=== PATIENT | male | born 1930 | race Caucasian/White ===

== ENCOUNTER 2016-12-25 15:33 | Inpatient (IN) | payer OTHER ==
[~2016-12-25] VITALS: Ht 182.9 cm; Wt 77.4 kg
[2016-12-25 04:00] VITALS: BP 149/73; PULSE 77; TEMP 36.5; O2SAT 97
[~2016-12-25 15:33] MED LIST: ASPI-435 PO; CLX20 PO; DONE10TA12 PO; FLUT0.15 NAE; GABA-112 PO; MRLP17X PO; NMN10 PO; PRAVASTATIN PO
[2016-12-25] MEDS ORDERED: SODIUM CHLORIDE 0.9% 1000ML 1,000 ML IV STA (15:46)
--- NOTE | 2016-12-25 15:50 | EMERGENCY ROOM VISIT NOTE ---
History Report prepared by Britney: Amrit Downey Under the Supervision of: Dr. Kalyan Castañeda M.D. First contact with patient: 15:38 Stated Complaint: LETHARGIC History of Present Illness The patient is an 86 year old male who presents to the Emergency Room with acute altered mental status. The patient resides at [facility] with his . The reported to EMS that he had a recent fall. He has baseline dementia but does appear to be lethargic, per . Per EMS the patient became hypoxic at 89 on room air. He is not febrile. He is not on any blood thinners. History is limited secondary to altered mental status. Source of History: spouse/significant other, EMS History Limited By: AMS Onset: today Position: other (mentation) Quality: other (altered mental status) Timing: other (acute) Associated Symptoms: No fevers Review of Systems ROS is limited secondary to altered mental status. Past Medical & Surgical Medical Problems: (1) Allergic rhinitis (2) Altered mental status (3) Alzheimers disease (4) Arteriosclerotic dementia (5) Carotid stenosis (6) Dehydration (7) Dementia (8) Depression (9) Dyslipidemia (10) Fever (11) H/O: CVA (cerebrovascular accident) (12) Peptic ulcer disease (13) RBBB (14) Stroke Surgical Problems: (1) History of cataract surgery (2) History of left-sided carotid endarterectomy (3) History of right-sided carotid endarterectomy Old medical records were reviewed. Nurse's notes were reviewed and I agree with. Family History Patient reports no known family medical history. Social History Smoking Status: Unknown if Ever Smoked Marital Status: Housing Status: lives with family Occupation Status: retired Current/Historical Medications Scheduled Aspirin (Aspirin Chewable), 81 MG PO DAILY Citalopram Hydrobromide (Citalopram Hydrobromide), 10 MG PO QAM Docusate Sodium (Docusate Sodium), 100 MG PO BID Donepezil Hydrochloride (Aricept), 10 MG PO QPM Gabapentin (Neurontin), 100 MG PO BID Memantine (Namenda), 10 MG PO QPM Polyethylene Glycol 3350 (Bulk (Polyethylene Glycol 3350), 17 GM PO DAILY Pravastatin Sodium (Pravachol), 40 MG PO QPM [2.0 Calorie Supp], 60 ML PO QID Scheduled PRN Acetaminophen (Tylenol), 650 MG PO Q6H PRN for Pain or Fever Bisacodyl (Dulcolax), 1 SUPP FL UD PRN for Constipation Zfhqayeq-Wrkjsymtogws-Tvjaffiy (Artificial Tears), 1 DROP OPB Q6H PRN for Dry Eye(s) Magnesium Hydroxide (Milk Of Magnesia), 30 ML PO UD PRN for Constipation Prune Juice (Prune Juice ), 1 DOSE PO UD PRN for Constipation Sodium Phosphate/Biphosphate (Fleet Enema), 1 EA FL UD PRN for Constipation Allergies Coded Allergies: Simvastatin (Unverified Adverse Reaction, Mild, muscle pain, 11/12/15) Physical Exam Vital Signs Date Time Temp Pulse Resp B/P Pulse Ox O2 Delivery O2 Flow Rate FiO2 12/25/16 20:31 141/68 12/25/16 20:30 82 18 97 2.0 12/25/16 20:01 137/65 12/25/16 20:00 82 22 97 12/25/16 19:30 80 21 121/59 97 12/25/16 19:14 131/64 12/25/16 19:00 73 19 131/64 96 12/25/16 18:18 78 22 96 12/25/16 18:03 85 23 97 12/25/16 18:00 127/64 12/25/16 17:48 87 22 96 12/25/16 17:33 140 20 80 12/25/16 17:30 136/65 12/25/16 17:18 90 23 96 12/25/16 17:03 82 20 97 12/25/16 17:00 135/57 12/25/16 16:59 143/67 12/25/16 16:33 81 23 96 12/25/16 16:30 146/71 12/25/16 16:26 38.0 12/25/16 16:18 85 18 98 12/25/16 16:06 85 12/25/16 16:03 87 20 97 12/25/16 16:01 147/81 12/25/16 16:00 89 18 147/81 97 Nasal Cannula 2.0 12/25/16 15:53 85 18 151/74 98 Nasal Cannula 3.0 12/25/16 15:51 98 Nasal Cannula 3.0 12/25/16 15:48 87 25 151/74 98 Physical Exam General: Older male that opens his eyes but is nonverbal. HEENT: Normal cephalic atraumatic. Pupils are equal round and reactive to light. Extraocular movements are intact. Oropharynx is pink with moist mucous membranes. No swelling of the mouth lips or tongue. Neck: Supple with a midline trachea. No meningeal signs or stiffness, no JVD or bruits. No Stridor. Chest: Clear to auscultation bilaterally. No wheezes or rhonchi. No increased work of breathing. Heart: regular rate and rhythm. Abdomen: Soft nontender, nondistended without rebound guarding or rigidity. Extremities: No cyanosis clubbing or edema. No calf tenderness or assymetry Spine/Back. Non tender to palpation. No CVA tenderness Skin: Good turgor without rashes. Neurologic exam: Cranial nerves two through 12 are intact. Motor and sensation are intact and symmetrical throughout. Medical Decision & Procedures ER Provider Diagnostic Interpretation: Radiology results as stated below per my review and radiologist interpretation: CHEST ONE VIEW PORTABLE HISTORY: Atypical CHEST PAIN COMPARISON: Chest 11/12/2015. FINDINGS: The heart is normal in size. Stable blunting of the right lateral costophrenic sulcus. There is diffuse interstitial and vascular thickening which has slightly progressed. No new focal lung consolidations. No pneumothorax. IMPRESSION: Slight progression of the diffuse interstitial and vascular thickening. This may represent developing congestive change. Stable blunting of the right lateral costophrenic sulcus. Electronically signed by: Ezequiel Tolbert M.D. 12/25/2016 3:59 PM Dictated Date/Time: 12/25/2016 3:[address] SCAN OF THE BRAIN WITHOUT IV CONTRAST CLINICAL HISTORY: Change in mental status. COMPARISON STUDY: CT of the brain dated 11/11/2013. TECHNIQUE: Unenhanced axial CT scan of the brain is performed from the vertex to the skull base. CT DOSE: 691.05 mGy.cm FINDINGS: Brain parenchyma: Foci of bifrontal and biparietal encephalomalacia are unchanged and consistent with remote infarcts. There is also likely a remote left occipital infarct. There are age-related involutional changes noting moderate to advanced subcortical and periventricular microangiopathic change. There is no hemorrhage, mass effect, or evidence of acute territorial ischemia by CT criteria. Becker-white matter is preserved. No extra-axial fluid collection is seen. Ventricles, sulci, cisterns: Prominent secondary to involutional change. Intracranial vasculature: There is atherosclerotic calcification of the cavernous carotid and vertebral arteries. Calvarium: Unremarkable. Sinuses and mastoids: The visualized paranasal sinuses are clear. The mastoid air cells are well pneumatized. Orbits: The bony orbits are grossly intact. There are bilateral ocular lens implants. IMPRESSION: Senescent changes and remote infarct as above. There is no hemorrhage, mass effect, or evidence of acute territorial ischemia by CT criteria. Electronically signed by: Junior Cain M.D. 12/25/2016 4:56 PM Dictated Date/Time: 12/25/2016 4:53 PM Laboratory Results 12/25/16 16:04 Red Blood Count 3.51, Mean Corpuscular Volume 90.6, Mean Corpuscular Hemoglobin 28.8, Mean Corpuscular Hemoglobin Concent 31.8, Mean Platelet Volume 9.4, Neutrophils (%) (Auto) 79.2, Lymphocytes (%) (Auto) 14.6, Monocytes (%) (Auto) 4.9, Eosinophils (%) (Auto) 0.8, Basophils (%) (Auto) 0.2, Neutrophils # (Auto) 9.74, Lymphocytes # (Auto) 1.80, Monocytes # (Auto) 0.60, Eosinophils # (Auto) 0.10, Basophils # (Auto) 0.02 12/25/16 16:04 Test 12/25/16 16:02 12/25/16 16:04 12/25/16 16:11 12/25/16 16:17 Bedside Glucose 150 mg/dl (70-99) White Blood Count 12.30 K/uL (4.8-10.8) Red Blood Count 3.51 M/uL (4.7-6.1) Hemoglobin 10.1 g/dL (14.0-18.0) Hematocrit 31.8 % (42-52) Mean Corpuscular Volume 90.6 fL (80-100) Mean Corpuscular Hemoglobin 28.8 pg (25-34) Mean Corpuscular Hemoglobin Concent 31.8 g/dl (32-36) Platelet Count 195 K/uL (130-400) Mean Platelet Volume 9.4 fL (7.4-10.4) Neutrophils (%) (Auto) 79.2 % Lymphocytes (%) (Auto) 14.6 % Monocytes (%) (Auto) 4.9 % Eosinophils (%) (Auto) 0.8 % Basophils (%) (Auto) 0.2 % Neutrophils # (Auto) 9.74 K/uL (1.4-6.5) Lymphocytes # (Auto) 1.80 K/uL (1.2-3.4) Monocytes # (Auto) 0.60 K/uL (0.11-0.59) Eosinophils # (Auto) 0.10 K/uL (0-0.5) Basophils # (Auto) 0.02 K/uL (0-0.2) RDW Standard Deviation 48.4 fL (36.4-46.3) RDW Coefficient of Variation 14.7 % (11.5-14.5) Immature Granulocyte % (Auto) 0.3 % Immature Granulocyte # (Auto) 0.04 K/uL (0.00-0.02) Prothrombin Time 11.4 SECONDS (9.0-12.0) Prothromb Time International Ratio 1.1 (0.9-1.1) Activated Partial Thromboplast Time 28.4 SECONDS (21.0-31.0) Partial Thromboplastin Ratio 1.1 Anion Gap 3.0 mmol/L (3-11) Estimated GFR () 57.7 Estimated GFR (Non- 49.8 BUN/Creatinine Ratio 24.6 (10-20) Calcium Level 8.1 mg/dl (8.5-10.1) Total Bilirubin 0.3 mg/dl (0.2-1) Direct Bilirubin < 0.1 mg/dl (0-0.2) Aspartate Amino Transf (AST/SGOT) 45 U/L (15-37) Alanine Aminotransferase (ALT/SGPT) 18 U/L (12-78) Alkaline Phosphatase 83 U/L (45-117) Total Creatine Kinase 558 U/L (39-308) Creatine Kinase MB 18.8 ng/ml (0.5-3.6) Creatine Kinase MB Ratio 3.4 (0-3.0) Total Protein 6.7 gm/dl (6.4-8.2) Albumin 2.9 gm/dl (3.4-5.0) Lipase 77 U/L (73-393) Thyroid Stimulating Hormone (TSH) 0.860 uIu/ml (0.300-4.500) Bedside Lactic Acid Venous 0.88 mmol/L (0.90-1.70) Urine Color YELLOW Urine Appearance CLEAR (CLEAR) Urine pH 6.5 (4.5-7.5) Urine Specific [place] 1.030 (1.000-1.030) Urine Protein TRACE (NEG) Urine Glucose (UA) NEG (NEG) Urine Ketones NEG (NEG) Urine Occult Blood 1+ (NEG) Urine Nitrite NEG (NEG) Urine Bilirubin NEG (NEG) Urine Urobilinogen NEG (NEG) Urine Leukocyte Esterase MODERATE (NEG) Urine WBC (Auto) >30 /hpf (0-5) Urine RBC (Auto) 5-10 /hpf (0-4) Urine Hyaline Casts (Auto) 10-30 /lpf (0-5) Urine Epithelial Cells (Auto) 0-5 /lpf (0-5) Urine Bacteria (Auto) NEG (NEG) Test 12/25/16 16:18 Bedside Troponin I 5.080 ng/ml (0-0.045) YQ-Yfa-[id number]-Type Natriuretic Peptide 4820 pg/ml (0-1800) Laboratory studies as stated above per my review. Medications Administered Medications (Trade) Dose Ordered Sig/[place] Route Start Time Stop Time Status Last Admin Dose Admin Sodium Chloride (Nss 1000ml) 1,000 ml @ 999 mls/hr Q1H1M STAT IV 12/25/16 15:46 12/25/16 16:46 DC 12/25/16 16:28 999 MLS/HR Piperacillin Sod/ Tazobactam Sod (Zosyn Iv) 4.5 gm NOW STAT IV 12/25/16 16:46 12/25/16 16:48 DC 12/25/16 16:57 4.5 GM Procedure Radiology results as stated below per my review and radiologist interpretation: CHEST ONE VIEW PORTABLE HISTORY: Atypical CHEST PAIN COMPARISON: Chest 11/12/2015. FINDINGS: The heart is normal in size. Stable blunting of the right lateral costophrenic sulcus. There is diffuse interstitial and vascular thickening which has slightly progressed. No new focal lung consolidations. No pneumothorax. IMPRESSION: Slight progression of the diffuse interstitial and vascular thickening. This may represent developing congestive change. Stable blunting of the right lateral costophrenic sulcus. Electronically signed by: Ezequiel Tolbert M.D. 12/25/2016 3:59 PM Dictated Date/Time: 12/25/2016 3:[address] SCAN OF THE BRAIN WITHOUT IV CONTRAST CLINICAL HISTORY: Change in mental status. COMPARISON STUDY: CT of the brain dated 11/11/2013. TECHNIQUE: Unenhanced axial CT scan of the brain is performed from the vertex to the skull base. CT DOSE: 691.05 mGy.cm FINDINGS: Brain parenchyma: Foci of bifrontal and biparietal encephalomalacia are unchanged and consistent with remote infarcts. There is also likely a remote left occipital infarct. There are age-related involutional changes noting moderate to advanced subcortical and periventricular microangiopathic change. There is no hemorrhage, mass effect, or evidence of acute territorial ischemia by CT criteria. Becker-white matter is preserved. No extra-axial fluid collection is seen. Ventricles, sulci, cisterns: Prominent secondary to involutional change. Intracranial vasculature: There is atherosclerotic calcification of the cavernous carotid and vertebral arteries. Calvarium: Unremarkable. Sinuses and mastoids: The visualized paranasal sinuses are clear. The mastoid air cells are well pneumatized. Orbits: The bony orbits are grossly intact. There are bilateral ocular lens implants. IMPRESSION: Senescent changes and remote infarct as above. There is no hemorrhage, mass effect, or evidence of acute territorial ischemia by CT criteria. Electronically signed by: Junior Cain M.D. 12/25/2016 4:56 PM Dictated Date/Time: 12/25/2016 4:53 PM ECG Indication: altered mental status Rate (beats per minute): 88 Rhythm: sinus with SA Findings: no acute ischemic change Comparison ECG Date: 12 November 2015 Change: no significant change ED Course 1540: Past medical records reviewed. The patient was evaluated in room C4, and a complete history and physical examination were performed. 1546: NSS 1000 ml @ 999 mls/hr. 1645: Talked with the patient's family. They say he does not have any antibiotic allergies. He is going for a CT scan. 1646: Zosyn 4.5 gm IV. 1705: Discussed the case with Dr. So, [facility] Hospitalist. The patient will be evaluated. 1710: The patient was sleeping. Updated him and his family. Medical Decision Differential diagnosis includes sepsis, CVA, trauma, UTI, arrhythmia, electrolyte or metabolic abnormality. This patient comes in as described above. He was placed in room C4. He is here for treatment and evaluation of increased somnolence after falling. He has a history of CVA as well as dementia. He has stable vital signs. IV access was established EKG CAT scan of his head chest x-ray urinalysis and multiple blood testing was obtained. He was gently hydrated with IV normal saline. He was reassessed frequently. He was noted to have a temperature 38 here as well. EKG does not suggest acute coronary syndrome or arrhythmia however his troponin was significant elevated at 5. It is difficult is safe if he's having any symptoms with this due to his altered mental status although again his EKG does not suggest an acute STEMI. I did discuss this with his and may been that he had a cardiac event or could be that he has strained on his heart from infection or another event. CAT scan of his head shows no acute hemorrhage or findings. His chest x-ray shows possible some mild CHF. His lactic acid is not elevated urinalysis does suggest UTI. Blood cultures were obtained and he was given IV Zosyn. He also given gentle IV hydration. I do think he needs to be admitted for treatment and evaluation of altered mental status, sepsis, as well as elevated troponin. He will be admitted for these measures. Consults Time Called: 1700 Consulting Physician: Dr. So, [facility] Hospitalist. Returned Call: 1705 The patient will be evaluated. Impression Primary Impression: Altered mental status Additional Impressions: Sepsis Urinary tract infection Elevated troponin Critical Care I have personally spent greater than 30 minutes of critical care time in the direct management of this patient. This includes bedside care, interpretation of diagnostic studies, and testing, discussion with consultants, patient, and family members, and other required patient management activities. This 30 minutes is in excess of all separately billable procedures. Scribe Attestation The scribe's documentation has been prepared under my direction and personally reviewed by me in its entirety. I confirm that the note above accurately reflects all work, treatment, procedures, and medical decision making performed by me. Departure Information Dispostion Being [facility]uated [facility] Problem Qualifiers
--- NOTE | 2016-12-25 16:01 | DIAGNOSTIC IMAGING REPORT ---
CHEST ONE VIEW PORTABLE HISTORY: Atypical CHEST PAIN COMPARISON: Chest 11/12/2015. FINDINGS: The heart is normal in size. Stable blunting of the right lateral costophrenic sulcus. There is diffuse interstitial and vascular thickening which has slightly progressed. No new focal lung consolidations. No pneumothorax. IMPRESSION: Slight progression of the diffuse interstitial and vascular thickening. This may represent developing congestive change. Stable blunting of the right lateral costophrenic sulcus. Electronically signed by: Ezequiel Tolbert M.D. 12/25/2016 3:59 PM Dictated Date/Time: 12/25/2016 3:57 PM
[2016-12-25 16:25] LABS: BASO % 0.2 %; BASO ABS # 0.02 K/uL (0-0.2); COMPLETE YES; EOS % 0.8 %; HEMATOCRIT 31.8 % (42-52); IG% 0.3 %; LYMPH % 14.6 %; MEAN CELL VOLUME 90.6 fL (80-100); MEAN CORPUSCULAR HEMOGLOBIN 28.8 pg (25-34); MEAN CORPUSCULAR HGB CONC 31.8 g/dl (32-36); MEAN PLATELET VOLUME 9.4 fL (7.4-10.4); MONO % 4.9 %; NEUT % 79.2 %; PLATELET COUNT 195 K/uL (130-400); RED BLOOD COUNT 3.51 M/uL (4.7-6.1)
[2016-12-25 16:33] LABS: INR 1.1 (0.9-1.1); PARTIAL THROMBOPLASTIN RATIO 1.1; PROTHROMBIN TIME (PATIENT) 11.4 SECONDS (9.0-12.0)
[2016-12-25 16:38] LABS: POINT OF CARE TROPONIN I 5.08 ng/ml (0-0.045)
[2016-12-25 16:43] LABS: ALT/SGPT 18 U/L (12-78); AST/SGOT 45 U/L (15-37); BLOOD UREA NITROGEN 32 mg/dl (7-18); BUN/CREATININE RATIO 24.6 (10-20); CALCIUM 8.1 mg/dl (8.5-10.1); CARBON DIOXIDE 31 mmol/L (21-32); CHLORIDE 110 mmol/L (98-107); GLUCOSE 142 mg/dl (70-99); POTASSIUM 4.4 mmol/L (3.5-5.1); SODIUM 144 mmol/L (136-145)
[2016-12-25 16:45] LABS: URINE APPEARANCE CLEAR (CLEAR); URINE BILIRUBIN NEG (NEG); URINE COLOR YELLOW; URINE EPITHELIAL CELL AUTO 0-5 /lpf (0-5); URINE NITRITE NEG (NEG); URINE PH 6.5 (4.5-7.5); UROBILINOGEN NEG (NEG)
[2016-12-25 16:46] LABS: MANUAL MICROSCOPIC REQUIRED? NO; REVIEW REQ? NO
[2016-12-25] MEDS ORDERED: PIPERACILLIN/TAZOBACTAM 4.5 GM/100ML D5W IV STA (16:46)
[2016-12-25 16:54] LABS: ALKALINE PHOSPHATASE 83 U/L (45-117); CKMB/CK RATIO 3.4 (0-3.0)
--- NOTE | 2016-12-25 16:57 | DIAGNOSTIC IMAGING REPORT ---
CT SCAN OF THE BRAIN WITHOUT IV CONTRAST CLINICAL HISTORY: Change in mental status. COMPARISON STUDY: CT of the brain dated 11/11/2013. TECHNIQUE: Unenhanced axial CT scan of the brain is performed from the vertex to the skull base. CT DOSE: 691.05 mGy.cm FINDINGS: Brain parenchyma: Foci of bifrontal and biparietal encephalomalacia are unchanged and consistent with remote infarcts. There is also likely a remote left occipital infarct. There are age-related involutional changes noting moderate to advanced subcortical and periventricular microangiopathic change. There is no hemorrhage, mass effect, or evidence of acute territorial ischemia by CT criteria. Becker-white matter is preserved. No extra-axial fluid collection is seen. Ventricles, sulci, cisterns: Prominent secondary to involutional change. Intracranial vasculature: There is atherosclerotic calcification of the cavernous carotid and vertebral arteries. Calvarium: Unremarkable. Sinuses and mastoids: The visualized paranasal sinuses are clear. The mastoid air cells are well pneumatized. Orbits: The bony orbits are grossly intact. There are bilateral ocular lens implants. IMPRESSION: Senescent changes and remote infarct as above. There is no hemorrhage, mass effect, or evidence of acute territorial ischemia by CT criteria. Electronically signed by: Junior Cain M.D. 12/25/2016 4:56 PM Dictated Date/Time: 12/25/2016 4:53 PM
[2016-12-25] MEDS ORDERED: DOCU100C31 PO (17:49)
[2016-12-25] MEDS ORDERED: ASPCH81X PO (17:49)
[2016-12-25] MEDS ORDERED: CITA10TA4 PO (17:49)
[2016-12-25] MEDS ORDERED: POLY1POW2 PO (17:53)
[2016-12-25] MEDS ORDERED: PRAV40TA PO (17:54)
[2016-12-25] MEDS ORDERED: [UNRECOGNIZED DRUG - OTHER] PO (17:58)
[2016-12-25] MEDS ORDERED: GLYCDRO6 OPB (18:04)
[2016-12-25] MEDS ORDERED: ACET-1311 PO (18:04)
[2016-12-25] MEDS ORDERED: PRNJ PO (18:06)
[2016-12-25] MEDS ORDERED: MOML PO (18:08)
[2016-12-25] MEDS ORDERED: BISA10SU3 PR (18:10)
[2016-12-25] MEDS ORDERED: SODIENE PR (18:10)
[2016-12-25] MEDS ORDERED: BISACODYL 10 MG SUPP PR PRN (20:45)
[2016-12-25] MEDS ORDERED: ONDANSETRON INJ 2 MG/ML 2 ML VIAL IV PRN (20:45)
[2016-12-25] MEDS ORDERED: PATIENT'S HEIGHT AND/OR WEIGHT NEEDED SCH (21:30)
[2016-12-25 21:50] VITALS: BP 136/57; PULSE 83; TEMP 36.9; O2SAT 4; Ht 182.9 cm; Wt 77.4 kg
[2016-12-25] MEDS: NSS + 20MEQ KCL 1000ML 1,000 ML IV SCH (22:41)
[2016-12-25] MEDS: ENOXAPARIN 30 MG/0.3 ML SYR SC SCH (22:41)
--- NOTE | 2016-12-25 23:39 | History and Physical ---
History & Physical Date & Time of Service: December 25, 2016 at 23:39 Chief Complaint: Altered Mental Status, Elevated Troponin Primary Care Physician: Pallavi Lovelace History of Present Illness Source: patient, family, spouse The patient is an 86-year-old male resident of [facility], with a past medical history including dementia, who is brought to the emergency department due to an acute worsening of mental status. He was found by nursing staff after a recent unwitnessed fall, where he was found on the floor, and per his was more lethargic. When EMS arrived, they reported he had a pulse ox of 89% on room air. The patient himself is not able to contribute to his history of present illness, but his and family relate his story in condition. His baseline level of physical activity includes walking with a walker with assistance. Past Medical/Surgical History Medical Problems: (1) Allergic rhinitis Status: Chronic (2) Alzheimers disease Status: Chronic (3) Arteriosclerotic dementia Status: Chronic (4) Carotid stenosis Status: Chronic (5) Depression Status: Chronic (6) Dyslipidemia Status: Chronic (7) H/O: CVA (cerebrovascular accident) Status: Chronic (8) Peptic ulcer disease Status: Chronic (9) RBBB Status: Chronic Surgical Problems: (1) History of cataract surgery Status: Chronic (2) History of left-sided carotid endarterectomy Status: Chronic (3) History of right-sided carotid endarterectomy Status: Chronic Family History Patient reports no known family medical history. Social History Smoking Status: Never Smoker Smokeless Tobacco Use: No Alcohol Use: none Drug Use: none Marital Status: Housing status: lives with family Occupational Status: retired Immunizations History of Influenza Vaccine: Yes Influenza Vaccine Date: Apr 11, 2008 History of Tetanus Vaccine?: Unknown History of Pneumococcal: Yes Pneumococcal Date: Apr 11, 2006 History of Hepatitis B Vaccine: Unknown Multi-Drug Resistant Organisms History of MDRO: No Allergies Coded Allergies: Simvastatin (Unverified Adverse Reaction, Mild, muscle pain, 11/12/15) Home Medications Scheduled Aspirin (Aspirin Chewable), 81 MG PO DAILY Citalopram Hydrobromide (Citalopram Hydrobromide), 10 MG PO QAM Docusate Sodium (Docusate Sodium), 100 MG PO BID Donepezil Hydrochloride (Aricept), 10 MG PO QPM Gabapentin (Neurontin), 100 MG PO BID Memantine (Namenda), 10 MG PO QPM Polyethylene Glycol 3350 (Bulk (Polyethylene Glycol 3350), 17 GM PO DAILY Pravastatin Sodium (Pravachol), 40 MG PO QPM [2.0 Calorie Supp], 60 ML PO QID Scheduled PRN Acetaminophen (Tylenol), 650 MG PO Q6H PRN for Pain or Fever Bisacodyl (Dulcolax), 1 SUPP ME UD PRN for Constipation Sxngmxkw-Xlhhuicxpgzn-Whjtsbvm (Artificial Tears), 1 DROP OPB Q6H PRN for Dry Eye(s) Magnesium Hydroxide (Milk Of Magnesia), 30 ML PO UD PRN for Constipation Prune Juice (Prune Juice ), 1 DOSE PO UD PRN for Constipation Sodium Phosphate/Biphosphate (Fleet Enema), 1 EA ME UD PRN for Constipation Review of Systems The patient'a family denies that he has had chest pain, palpitations, shortness of breath, cough, lower extremity swelling, vision change, hearing change, sore throat, fevers, chills, sweats, nausea, vomiting, abdominal pain, pelvic pain, blood in urine or stool, dysuria, urinary frequency or urgency, rash, abnormal bruising or bleeding, focal weakness, numbness or tingling in arms or legs, arthralgias or myalgias, back or neck pain, night sweats, or allergy symptoms. The review of systems is otherwise negative other than for that already noted above, and at least 10 systems have been reviewed. Physical Exam Vital Signs Date Time Temp Pulse Resp B/P Pulse Ox O2 Delivery O2 Flow Rate FiO2 12/25/16 21:50 36.9 83 22 136/57 4 Nasal Cannula 2.0 12/25/16 20:31 141/68 12/25/16 20:30 82 18 97 2.0 12/25/16 20:01 137/65 12/25/16 20:00 82 22 97 12/25/16 19:30 80 21 121/59 97 12/25/16 19:14 131/64 12/25/16 19:00 73 19 131/64 96 12/25/16 18:18 78 22 96 12/25/16 18:03 85 23 97 12/25/16 18:00 127/64 12/25/16 17:48 87 22 96 5/17/17 17:33 140 20 80 12/25/16 17:30 136/65 12/25/16 17:18 90 23 96 12/25/16 17:03 82 20 97 12/25/16 17:00 135/57 12/25/16 16:59 143/67 12/25/16 16:33 81 23 96 12/25/16 16:30 146/71 12/25/16 16:26 38.0 12/25/16 16:18 85 18 98 12/25/16 16:06 85 12/25/16 16:03 87 20 97 12/25/16 16:01 147/81 12/25/16 16:00 89 18 147/81 97 Nasal Cannula 2.0 12/25/16 15:53 85 18 151/74 98 Nasal Cannula 3.0 12/25/16 15:51 98 Nasal Cannula 3.0 12/25/16 15:48 87 25 151/74 98 The patient is lethargic, unable to participate, normocephalic and atraumatic, lying in bed and in no acute distress. HEENT--PERRL, EOMI, mucous membranes and oropharynx dry. Neck--supple, no JVD or bruits, thyroid normal, trachea midline, no adenopathy. Heart--normal S1 and S2, no extra beats, no murmurs, rubs or gallops. Lungs--decreased breath sounds throughout, no respiratory distress, no accessory muscle use. Abdomen--normal bowel sounds and soft, nontender and nondistended, no hernias or masses, no organomegaly. Extremities--no cyanosis, clubbing or edema. There are good distal pulses b/l. Dermatologic--normal skin turgor, normal color, warm and dry, no abnormal lymph nodes, no rash. Neurologic--unable to be tested Rheumatologic--deferred Psychiatric--lethargic. Diagnostics Laboratory Results Results Past 24 Hours Test 12/25/16 16:02 12/25/16 16:04 12/25/16 16:11 12/25/16 16:17 Range/Units Bedside Glucose 150 70-99 mg/dl White Blood Count 12.30 4.8-10.8 K/uL Red Blood Count 3.51 4.7-6.1 M/uL Hemoglobin 10.1 14.0-18.0 g/dL Hematocrit 31.8 42-52 % Mean Corpuscular Volume 90.6 80-100 fL Mean Corpuscular Hemoglobin 28.8 25-34 pg Mean Corpuscular Hemoglobin Concent 31.8 32-36 g/dl Platelet Count 195 130-400 K/uL Mean Platelet Volume 9.4 7.4-10.4 fL Neutrophils (%) (Auto) 79.2 % Lymphocytes (%) (Auto) 14.6 % Monocytes (%) (Auto) 4.9 % Eosinophils (%) (Auto) 0.8 % Basophils (%) (Auto) 0.2 % Neutrophils # (Auto) 9.74 1.4-6.5 K/uL Lymphocytes # (Auto) 1.80 1.2-3.4 K/uL Monocytes # (Auto) 0.60 0.11-0.59 K/uL Eosinophils # (Auto) 0.10 0-0.5 K/uL Basophils # (Auto) 0.02 0-0.2 K/uL RDW Standard Deviation 48.4 36.4-46.3 fL RDW Coefficient of Variation 14.7 11.5-14.5 % Immature Granulocyte % (Auto) 0.3 % Immature Granulocyte # (Auto) 0.04 0.00-0.02 K/uL Prothrombin Time 11.4 9.0-12.0 SECONDS Prothromb Time International Ratio 1.1 0.9-1.1 Activated Partial Thromboplast Time 28.4 21.0-31.0 SECONDS Partial Thromboplastin Ratio 1.1 Sodium Level 144 136-145 mmol/L Potassium Level 4.4 3.5-5.1 mmol/L Chloride Level 110 98-107 mmol/L Carbon Dioxide Level 31 21-32 mmol/L Anion Gap 3.0 3-11 mmol/L Blood Urea Nitrogen 32 7-18 mg/dl Creatinine 1.30 0.60-1.40 mg/dl Estimated GFR () 57.7 Estimated GFR (Non- 49.8 BUN/Creatinine Ratio 24.6 10-20 Random Glucose 142 70-99 mg/dl Calcium Level 8.1 8.5-10.1 mg/dl Total Bilirubin 0.3 0.2-1 mg/dl Direct Bilirubin < 0.1 0-0.2 mg/dl Aspartate Amino Transf (AST/SGOT) 45 15-37 U/L Alanine Aminotransferase (ALT/SGPT) 18 12-78 U/L Alkaline Phosphatase 83 45-117 U/L Total Creatine Kinase 558 39-308 U/L Creatine Kinase MB 18.8 0.5-3.6 ng/ml Creatine Kinase MB Ratio 3.4 0-3.0 Total Protein 6.7 6.4-8.2 gm/dl Albumin 2.9 3.4-5.0 gm/dl Lipase 77 73-393 U/L Thyroid Stimulating Hormone (TSH) 0.860 0.300-4.500 uIu/ml Bedside Lactic Acid Venous 0.88 0.90-1.70 mmol/L Urine Color YELLOW Urine Appearance CLEAR CLEAR Urine pH 6.5 4.5-7.5 Urine Specific [place] 1.030 1.000-1.030 Urine Protein TRACE NEG Urine Glucose (UA) NEG NEG Urine Ketones NEG NEG Urine Occult Blood 1+ NEG Urine Nitrite NEG NEG Urine Bilirubin NEG NEG Urine Urobilinogen NEG NEG Urine Leukocyte Esterase MODERATE NEG Urine WBC (Auto) >30 0-5 /hpf Urine RBC (Auto) 5-10 0-4 /hpf Urine Hyaline Casts (Auto) 10-30 0-5 /lpf Urine Epithelial Cells (Auto) 0-5 0-5 /lpf Urine Bacteria (Auto) NEG NEG Test 12/25/16 16:18 Range/Units Bedside Troponin I 5.080 0-0.045 ng/ml LE-Iid-B-Type Natriuretic Peptide 4820 0-1800 pg/ml Microbiology Results 12/25/16 Blood Culture, Received Pending 12/25/16 Blood Culture, Received Pending 12/25/16 MRSA DNA Surveillance Screen, Received Pending 12/25/16 Urine Culture, Received Pending Diagnostic Radiology Patient Name: Kasie HIGGINS Unit Number: [id number] Dictated: 12/25/161652 Transcribed: 12/25/161652 EV Printed Date/Time: [~ rep prt dt]/[~ rep prt tm] [~ rep ct labl] - [~ rep ct ivnm] [facility] [place] [address] Dictated: 12/25/161652 Transcribed: 12/25/161652 EV Printed Date/Time: [~ rep prt dt]/[~ rep prt tm] [~ rep ct labl] - [~ rep ct ivnm] CT SCAN OF THE BRAIN WITHOUT IV CONTRAST CLINICAL HISTORY: Change in mental status. COMPARISON STUDY: CT of the brain dated 11/11/2013. TECHNIQUE: Unenhanced axial CT scan of the brain is performed from the vertex to the skull base. CT DOSE: 691.05 mGy.cm FINDINGS: Brain parenchyma: Foci of bifrontal and biparietal encephalomalacia are unchanged and consistent with remote infarcts. There is also likely a remote left occipital infarct. There are age-related involutional changes noting moderate to advanced subcortical and periventricular microangiopathic change. There is no hemorrhage, mass effect, or evidence of acute territorial ischemia by CT criteria. Becker-white matter is preserved. No extra-axial fluid collection is seen. Ventricles, sulci, cisterns: Prominent secondary to involutional change. Intracranial vasculature: There is atherosclerotic calcification of the cavernous carotid and vertebral arteries. Calvarium: Unremarkable. Sinuses and mastoids: The visualized paranasal sinuses are clear. The mastoid air cells are well pneumatized. Orbits: The bony orbits are grossly intact. There are bilateral ocular lens implants. IMPRESSION: Senescent changes and remote infarct as above. There is no hemorrhage, mass effect, or evidence of acute territorial ischemia by CT criteria. Electronically signed by: Junior Cain M.D. 12/25/2016 4:56 PM Dictated Date/Time: 12/25/2016 4:53 PM The status of this report is Signed. Draft = Not yet reviewed or approved by Radiologist. Signed = Reviewed and approved by Radiologist. <AttendingPhy></AttendingPhy> <FamilyPhy>[facility]</FamilyPhy> <PrimaryPhy> [facility]</PrimaryPhy> <UnitNumber>[id number]</UnitNumber> <VisitNumber> [id number]</VisitNumber> <PatientName>Kasie HIGGINS</PatientName> < DateOfBirth>1930</DateOfBirth> <Location>[facility]</Location> <ServiceDate></ServiceDate> <MNE>ESINDI</MNE> <OrderingPhy>Kalyan Castañeda M.D.</ OrderingPhy> <OrderingPhyMNE>f rep ord dr morrow</OrderingPhyMNE> <DictatingPhyMNE> f rep dict dr morrow</DictatingPhyMNE> <CCListMNE>f rep ct mne</CCListMNE> < AdmittingPhyMNE>f pt admit dr morrow</AdmittingPhyMNE> <AttendingPhyMNE>f pt attend dr morrow</AttendingPhyMNE> <ConsultingPhyMNE>f pt consult dr morrow</ConsultingPhyMNE> <FamilyPhyMNE>f pt fam dr morrow</FamilyPhyMNE> <OtherPhyMNE>f pt other dr morrow</OtherPhyMNE> < PrimaryPhyMNE>f pt prim care dr morrow</PrimaryPhyMNE> <ReferringPhyMNE>f pt referring dr morrow</ReferringPhyMNE> Patient Name: Kasie HIGGINS Unit Number: [id number] Dictated: 12/25/161556 Transcribed: 12/25/161556 [facility] Printed Date/Time: [~ rep prt dt]/[~ rep prt tm] [~ rep ct labl] - [~ rep ct ivnm] [facility] [place] [address] Dictated: 12/25/161556 Transcribed: 12/25/161556 [facility] Printed Date/Time: [~ rep prt dt]/[~ rep prt tm] [~ rep ct labl] - [~ rep ct ivnm] CHEST ONE VIEW PORTABLE HISTORY: Atypical CHEST PAIN COMPARISON: Chest 11/12/2015. FINDINGS: The heart is normal in size. Stable blunting of the right lateral costophrenic sulcus. There is diffuse interstitial and vascular thickening which has slightly progressed. No new focal lung consolidations. No pneumothorax. IMPRESSION: Slight progression of the diffuse interstitial and vascular thickening. This may represent developing congestive change. Stable blunting of the right lateral costophrenic sulcus. Electronically signed by: Ezequiel Tolbert M.D. 12/25/2016 3:59 PM Dictated Date/Time: 12/25/2016 3:57 PM The status of this report is Signed. Draft = Not yet reviewed or approved by Radiologist. Signed = Reviewed and approved by Radiologist. <AttendingPhy></AttendingPhy> <FamilyPhy>[place] [place]</FamilyPhy> <PrimaryPhy> [facility]</PrimaryPhy> <UnitNumber>[id number]</UnitNumber> <VisitNumber> [id number]</VisitNumber> <PatientName>RONALDOKasie FU</PatientName> < DateOfBirth>1930</DateOfBirth> <Location>[facility]</Location> <ServiceDate></ServiceDate> <MNE>ESINDI</MNE> <OrderingPhy>Kalyan Castañeda M.D.</ OrderingPhy> <OrderingPhyMNE>f rep ord dr morrow</OrderingPhyMNE> <DictatingPhyMNE> f rep dict dr morrow</DictatingPhyMNE> <CCListMNE>f rep ct cristhian</CCListMNE> < AdmittingPhyMNE>f pt admit dr morrow</AdmittingPhyMNE> <AttendingPhyMNE>f pt attend dr morrow</AttendingPhyMNE> <ConsultingPhyMNE>f pt consult dr morrow</ConsultingPhyMNE> <FamilyPhyMNE>f pt fam dr morrow</FamilyPhyMNE> <OtherPhyMNE>f pt other dr morrow</OtherPhyMNE> < PrimaryPhyMNE>f pt prim care dr morrow</PrimaryPhyMNE> <ReferringPhyMNE>f pt referring dr morrow</ReferringPhyMNE> EKG EKG shows normal sinus rhythm at 88 bpm, left axis deviation, no acute ST-T changes. Impression Assessment and Plan Altered mental status/elevated troponin/UTI/underlying dementia/dehydration-- multiple etiologies are possible. The patient will be admitted to the telemetry unit for serial cardiac enzymes, cardiac rhythm monitoring and a 2-D echocardiogram with Dopplers. Place on normal saline with potassium chloride 20 mEq at [address] of the head without contrast does not show any new findings, and he does not have any focal symptoms observed on exam. His rjkyi-cp-qdcr troponin is elevated at 5.08, but his low normal blood pressure and altered mental status will not allow any further treatment. He'll continue with aspirin 81 mg by mouth daily. Urinary tract infection--he's received Zosyn in the emergency department, and will be admitted on ceftriaxone 1 g IV daily. Follow urine culture and sensitivity results. Hydrate with IV fluids as noted above. Dementia/depression--until able to take by mouth regularly, will hold citalopram , donepezil, gabapentin, and Namenda. Hypercholesterolemia--hold pravastatin 40 mg by mouth every afternoon. The patient is a level V DO NOT RESUSCITATE. Level of Care Telemetry Advanced Directives Existing Advance Directive: Yes Existing Living Will: Yes Existing Power of Lumber Driver: Yes Resuscitation Status DO NOT RESUSCITATE VTE Prophylaxis VTE Risk Assessment Done? Y/N: Yes Risk Level: Moderate Given or contraindicated: German Stephens SCD's Social Service Consult Lives in Detention
[2016-12-26 00:41] VITALS: BP 149/73; PULSE 77; TEMP 36.5; O2SAT 97
[2016-12-26 04:08] VITALS: BP 104/52; PULSE 75; TEMP 36.8; O2SAT 97
[2016-12-26 04:58] LABS: BUN/CREATININE RATIO 23.2 (10-20); CREATININE 1.1 mg/dl (0.60-1.40); MAGNESIUM 2.3 mg/dl (1.8-2.4); POTASSIUM 4.3 mmol/L (3.5-5.1)
[2016-12-26 05:08] LABS: CKMB/CK RATIO 1.6 (0-3.0)
[2016-12-26 05:19] LABS: MEAN CELL VOLUME 92.1 fL (80-100); MEAN CORPUSCULAR HEMOGLOBIN 29.8 pg (25-34); MEAN CORPUSCULAR HGB CONC 32.4 g/dl (32-36); MEAN PLATELET VOLUME 9.1 fL (7.4-10.4); PLATELET COUNT 152 K/uL (130-400); RED BLOOD COUNT 3.15 M/uL (4.7-6.1); WHITE BLOOD COUNT 10.94 K/uL (4.8-10.8)
[2016-12-26 05:21] LABS: BASO % 0.1 %; BASO ABS # 0.01 K/uL (0-0.2); COMPLETE YES; EOS % 1.4 %; IG% 0.3 %; LYMPH % 16.8 %; LYMPH ABS # 1.84 K/uL (1.2-3.4); MONO % 6.8 %; NEUT % 74.6 %; PLT ESTIMATE NORMAL
[2016-12-26] MEDS: CEFTRIAXONE SOD INJ 1 GM in DEXTROSE 5% ADD-VANTAGE 50ML 50 ML IV SCH (05:27)
[2016-12-26 08:00] VITALS: BP 167/86; PULSE 78; TEMP 36.9; O2SAT 97
--- NOTE | 2016-12-26 10:45 | ECHOCARDIOGRAM REPORT ---
*NOTICE TO RECEIVING REPUBLICAN AGENCY This information is strictly Confidential and protected under [place] law. [place] law prohibits you from making any further disclosure of this information unless further disclosure is expressly permitted by the written consent of the person to whom it pertains or is authorized by law. A general authorization for the release of medical or other information is not sufficient for this purpose. Hospital accepts no responsibility if the information is made available to any other person, INCLUDING THE PATIENT. Interpretation Summary * Name: Kasie HIGGINS Study Date: 12/26/2016 06:58 AM BP: 104/52 mmHg * Patient Location: C.2E\S\E212\S\1 HR: 75 * : 1930 (M/d/yyyy) Gender: Male * Age: 86 yrs Ethnicity: [place] Weight: 162 lb * Ordering Physician: Peng Barboza * Referring Physician: Self, Referred * Performed By: Dorothy Gutierrez RDCS * * Reason For Study: ELEVATED TROPONIN * -- Conclusions -- * Left ventricular systolic function is normal. * Grade I diastolic dysfunction, (abnormal relaxation pattern). * There are regional wall motion abnormalities as specified. * There is moderate anterior wall hypokinesis. * Calcified mitral apparatus. * Right ventricular systolic pressure is elevated at 40-50mmHg. Procedure Details * A contrast injection of Definity was performed to improve assessment of LV function. * Contrast was injected into an intravenous site in the left arm. * One vial of Definity ultrasound contrast was diluted in normal saline to a total volume of 10 ml. A total of '2' ml of solution was administered during imaging. * Lot # [id number] of Definity utilized for procedure. * Expiration date NOV 26. * The attending nurse who injected the contrast agent was VIBHA SORIANO. Left Ventricle * The left ventricle is normal in size. * There is normal left ventricular wall thickness. * Ejection Fraction = 50-55%. * Left ventricular systolic function is normal. * Grade I diastolic dysfunction, (abnormal relaxation pattern). * There are regional wall motion abnormalities as specified. * There is moderate anterior wall hypokinesis. Right Ventricle * The right ventricle is normal in size and function. Atria * The left atrial size is normal. * Right atrial size is normal. Mitral Valve * Calcified mitral apparatus. * Significant mitral regurgitation is absent. Tricuspid Valve * The tricuspid valve is not well visualized, but is grossly normal. * There is trace tricuspid regurgitation. * Right ventricular systolic pressure is elevated at 40-50mmHg. Aortic Valve * Aortic valve sclerosis moderate, without significant aortic valvular stenosis. * No hemodynamically significant valvular aortic stenosis. * There is no significant aortic regurgitation. Great Vessels * The aortic root is normal size. Pericardium/Pleural * There is no pericardial effusion. Great Vessels * Dilated inferior vena cava with reduced collapsability with sniff indicates an elevated right atrial pressure of 15 mmHg MMode 2D Measurements and Calculations IVSd 0.98 cm IVSs 1.3 cm LVIDd 4.2 cm LVIDs 3.0 cm LVPWd 1.1 cm LVPWs 2.0 cm IVS/LVPW 0.86 FS 27.3 % EDV(Teich) 77.3 ml ESV(Teich) 35.9 ml EF(Teich) 53.6 % EDV(cubed) 72.5 ml ESV(cubed) 27.8 ml EF(cubed) 61.6 % % IVS thick 28.3 % % LVPW thick 74.6 % LV mass(C)d 147.3 grams LV mass(C)s 183.2 grams SV(Teich) 41.4 ml SV(cubed) 44.7 ml Ao root diam 3.1 cm Ao root area 7.6 cm\S\2 LA dimension 3.5 cm LA/Ao 1.1 LVAd ap4 32.0 cm\S\2 LVLd ap4 8.1 cm EDV(MOD-sp4) 105.7 ml EDV(sp4-el) 107.2 ml LVAs ap4 19.9 cm\S\2 LVLs ap4 6.4 cm ESV(MOD-sp4) 52.3 ml ESV(sp4-el) 52.4 ml EF(MOD-sp4) 50.5 % EF(sp4-el) 51.1 % SV(MOD-sp4) 53.4 ml SV(sp4-el) 54.8 ml Doppler Measurements and Calculations MV E max tristan 116.5 cm/sec MV A max tristan 130.5 cm/sec MV E/A 0.89 MV dec time 0.13 sec Ao V2 max 152.2 cm/sec Ao max PG 9.3 mmHg Ao max PG (full) 7.4 mmHg LV V1 max PG 1.8 mmHg LV V1 max 68.0 cm/sec TR max tristan 283.0 cm/sec
[2016-12-26 11:58] VITALS: BP 169/84; PULSE 84; TEMP 36.6; O2SAT 98
--- NOTE | 2016-12-26 13:21 | Family Medicine Progress Note ---
Progress Note Date of Service December 26, 2016. Subjective Pt evaluation today including: conversation w/ family, physical exam, chart review, lab review, review of studies Patient is non verbal the interview was completed by the of the patient he was apparently "much better than the day before because he did not even want to open his eyes for me yesterday" We did discuss plan of care with her and she was agreeable no events overnight unable to complete an ROS because patient is non verbal Medications Medications Administered Medications (Trade) Dose Ordered Sig/Honorio Route Start Time Stop Time Status Last Admin Dose Admin Sodium Chloride (Nss 1000ml) 1,000 ml @ 999 mls/hr Q1H1M STAT IV 12/25/16 15:46 12/25/16 16:46 DC 12/25/16 16:28 999 MLS/HR Piperacillin Sod/ Tazobactam Sod (Zosyn Iv) 4.5 gm NOW STAT IV 12/25/16 16:46 12/25/16 16:48 DC 12/25/16 16:57 4.5 GM Enoxaparin Sodium 30 mg 30 mg DAILY@2000 SC 12/25/16 22:00 01/24/17 21:59 12/25/16 22:41 30 MG Potassium Chloride/Sodium Chloride 1,000 ml @ 75 mls/hr [id number] IV 12/25/16 21:30 01/24/17 21:29 12/25/16 22:41 75 MLS/HR Ceftriaxone Sodium/Dextrose (Rocephin Inj/ Dextrose Add-[place] 50ML) 50 ml @ 100 mls/hr Q24H IV 12/26/16 05:00 12/31/16 04:59 12/26/16 05:27 100 MLS/HR Objective Vital Signs Date Time Temp Pulse Resp B/P Pulse Ox O2 Delivery O2 Flow Rate FiO2 12/26/16 11:58 36.6 84 18 169/84 98 12/26/16 08:00 36.9 78 15 167/86 97 Nasal Cannula 2.0 12/26/16 04:08 36.8 75 20 104/52 97 Nasal Cannula 2.0 12/26/16 04:00 Nasal Cannula 2.0 12/26/16 00:41 36.5 77 22 149/73 97 Nasal Cannula 2.0 12/26/16 00:00 Nasal Cannula 2.0 12/25/16 21:50 36.9 83 22 136/57 4 Nasal Cannula 2.0 12/25/16 20:31 141/68 12/25/16 20:30 82 18 97 2.0 12/25/16 20:01 137/65 12/25/16 20:00 82 22 97 12/25/16 19:30 80 21 121/59 97 12/25/16 19:14 131/64 12/25/16 19:00 73 19 131/64 96 12/25/16 18:18 78 22 96 12/25/16 18:03 85 23 97 12/25/16 18:00 127/64 12/25/16 17:48 87 22 96 12/25/16 17:33 140 20 80 12/25/16 17:30 136/65 12/25/16 17:18 90 23 96 12/25/16 17:03 82 20 97 12/25/16 17:00 135/57 12/25/16 16:59 143/67 12/25/16 16:33 81 23 96 12/25/16 16:30 146/71 12/25/16 16:26 38.0 12/25/16 16:18 85 18 98 12/25/16 16:06 85 12/25/16 16:03 87 20 97 12/25/16 16:01 147/81 12/25/16 16:00 89 18 147/81 97 Nasal Cannula 2.0 12/25/16 15:53 85 18 151/74 98 Nasal Cannula 3.0 12/25/16 15:51 98 Nasal Cannula 3.0 12/25/16 15:48 87 25 151/74 98 Physical Exam General Appearance: no apparent distress Eyes: normal inspection ENT: normal ENT inspection Neck: supple Respiratory/Chest: normal breath sounds, no respiratory distress, no accessory muscle use, + decreased breath sounds (bilat bases) Cardiovascular: regular rate, rhythm, no murmur Abdomen: normal bowel sounds, non tender, soft Extremities: normal inspection, no pedal edema, no calf tenderness Neurologic/Psychiatric: alert, + pertinent finding (non verbal so can not assess orientation) Skin: normal color, warm/dry, no rash Lymphatic: no adenopathy Laboratory Results Results Past 24 Hours Test 12/25/16 16:02 12/25/16 16:04 12/25/16 16:11 12/25/16 16:17 Range/Units Bedside Glucose 150 70-99 mg/dl White Blood Count 12.30 4.8-10.8 K/uL Red Blood Count 3.51 4.7-6.1 M/uL Hemoglobin 10.1 14.0-18.0 g/dL Hematocrit 31.8 42-52 % Mean Corpuscular Volume 90.6 80-100 fL Mean Corpuscular Hemoglobin 28.8 25-34 pg Mean Corpuscular Hemoglobin Concent 31.8 32-36 g/dl Platelet Count 195 130-400 K/uL Mean Platelet Volume 9.4 7.4-10.4 fL Neutrophils (%) (Auto) 79.2 % Lymphocytes (%) (Auto) 14.6 % Monocytes (%) (Auto) 4.9 % Eosinophils (%) (Auto) 0.8 % Basophils (%) (Auto) 0.2 % Neutrophils # (Auto) 9.74 1.4-6.5 K/uL Lymphocytes # (Auto) 1.80 1.2-3.4 K/uL Monocytes # (Auto) 0.60 0.11-0.59 K/uL Eosinophils # (Auto) 0.10 0-0.5 K/uL Basophils # (Auto) 0.02 0-0.2 K/uL RDW Standard Deviation 48.4 36.4-46.3 fL RDW Coefficient of Variation 14.7 11.5-14.5 % Immature Granulocyte % (Auto) 0.3 % Immature Granulocyte # (Auto) 0.04 0.00-0.02 K/uL Prothrombin Time 11.4 9.0-12.0 SECONDS Prothromb Time International Ratio 1.1 0.9-1.1 Activated Partial Thromboplast Time 28.4 21.0-31.0 SECONDS Partial Thromboplastin Ratio 1.1 Sodium Level 144 136-145 mmol/L Potassium Level 4.4 3.5-5.1 mmol/L Chloride Level 110 98-107 mmol/L Carbon Dioxide Level 31 21-32 mmol/L Anion Gap 3.0 3-11 mmol/L Blood Urea Nitrogen 32 7-18 mg/dl Creatinine 1.30 0.60-1.40 mg/dl Estimated GFR () 57.7 Estimated GFR (Non- 49.8 BUN/Creatinine Ratio 24.6 10-20 Random Glucose 142 70-99 mg/dl Calcium Level 8.1 8.5-10.1 mg/dl Total Bilirubin 0.3 0.2-1 mg/dl Direct Bilirubin < 0.1 0-0.2 mg/dl Aspartate Amino Transf (AST/SGOT) 45 15-37 U/L Alanine Aminotransferase (ALT/SGPT) 18 12-78 U/L Alkaline Phosphatase 83 45-117 U/L Total Creatine Kinase 558 39-308 U/L Creatine Kinase MB 18.8 0.5-3.6 ng/ml Creatine Kinase MB Ratio 3.4 0-3.0 Total Protein 6.7 6.4-8.2 gm/dl Albumin 2.9 3.4-5.0 gm/dl Lipase 77 73-393 U/L Thyroid Stimulating Hormone (TSH) 0.860 0.300-4.500 uIu/ml Bedside Lactic Acid Venous 0.88 0.90-1.70 mmol/L Urine Color YELLOW Urine Appearance CLEAR CLEAR Urine pH 6.5 4.5-7.[address] 1.030 1.000-1.030 Urine Protein TRACE NEG Urine Glucose (UA) NEG NEG Urine Ketones NEG NEG Urine Occult Blood 1+ NEG Urine Nitrite NEG NEG Urine Bilirubin NEG NEG Urine Urobilinogen NEG NEG Urine Leukocyte Esterase MODERATE NEG Urine WBC (Auto) >30 0-5 /hpf Urine RBC (Auto) 5-10 0-4 /hpf Urine Hyaline Casts (Auto) 10-30 0-5 /lpf Urine Epithelial Cells (Auto) 0-5 0-5 /lpf Urine Bacteria (Auto) NEG NEG Test 12/25/16 16:18 12/26/16 04:26 12/26/16 12:26 Range/Units Bedside Troponin I 5.080 0-0.045 ng/ml RN-Qqk-[id number]-Type Natriuretic Peptide 4820 0-1800 pg/ml White Blood Count 10.94 4.8-10.8 K/uL Red Blood Count 3.15 4.7-6.1 M/uL Hemoglobin 9.4 14.0-18.0 g/dL Hematocrit 29.0 42-52 % Mean Corpuscular Volume 92.1 80-100 fL Mean Corpuscular Hemoglobin 29.8 25-34 pg Mean Corpuscular Hemoglobin Concent 32.4 32-36 g/dl Platelet Count 152 130-400 K/uL Mean Platelet Volume 9.1 7.4-10.4 fL Neutrophils (%) (Auto) 74.6 % Lymphocytes (%) (Auto) 16.8 % Monocytes (%) (Auto) 6.8 % Eosinophils (%) (Auto) 1.4 % Basophils (%) (Auto) 0.1 % Neutrophils # (Auto) 8.17 1.4-6.5 K/uL Lymphocytes # (Auto) 1.84 1.2-3.4 K/uL Monocytes # (Auto) 0.74 0.11-0.59 K/uL Eosinophils # (Auto) 0.15 0-0.5 K/uL Basophils # (Auto) 0.01 0-0.2 K/uL RDW Standard Deviation 51.0 36.4-46.3 fL RDW Coefficient of Variation 15.0 11.5-14.5 % Immature Granulocyte % (Auto) 0.3 % Immature Granulocyte # (Auto) 0.03 0.00-0.02 K/uL Platelet Estimate NORMAL Red Blood Cell Morphology Unremarkable Sodium Level 145 136-145 mmol/L Potassium Level 4.3 3.5-5.1 mmol/L Chloride Level 111 98-107 mmol/L Carbon Dioxide Level 31 21-32 mmol/L Anion Gap 3.0 3-11 mmol/L Blood Urea Nitrogen 26 7-18 mg/dl Creatinine 1.10 0.60-1.40 mg/dl Est Creatinine Clear Calc Drug Dose 51.2 ml/min Estimated GFR () 70.6 Estimated GFR (Non- 60.9 BUN/Creatinine Ratio 23.2 10-20 Random Glucose 123 70-99 mg/dl Calcium Level 8.0 8.5-10.1 mg/dl Magnesium Level 2.3 1.8-2.4 mg/dl Total Creatine Kinase 413 39-308 U/L Creatine Kinase MB 6.6 0.5-3.6 ng/ml Creatine Kinase MB Ratio 1.6 0-3.0 Troponin I 2.930 0-0.045 ng/ml Microbiology Results 12/25/16 Blood Culture, Received Pending 12/25/16 Blood Culture, Received Pending 12/25/16 MRSA DNA Surveillance Screen - Final, Complete Specimen Negative for MRSA by DNA Probe 12/25/16 Urine Culture, Received Pending Assessment and Plan This is an 86 yo m that was brought to the hospital for evaluation for ALOC and was found on the floor after a fall. While in the ED he was found to have a POC troponin of approx 5 and a UA concerning for a UTI so the patient was placed on tele and started on Rocephin. The troponin did trend down while the patient was in the hospital. Metabolic encephalopathy secondary to possible UTI vs dehydration; multifactorial; - tele admission - IVF NSS with KCL 20 @ 75 cc/h - CT head negative and no focal findings on exam - Swallow study, PT/OT Abnormal UA; concerning for UTI - Rocephin continued - awaiting culture results - IVF as above Elevated Troponin- NSTEMI - Trend troponin, has been down trending - Echo concerning for NSTEMI - CVS consult ordered - ASA cont'd - Lisinopril 5 mg and Metoprolol 12.5 mg bid started Dementia/depression-- until able to take by mouth regularly, will hold citalopram, donepezil, gabapentin, and Namenda. - swallow study prior to reinitiating medications Hypercholesterolemia- -hold pravastatin 40 mg by mouth until eval completed as above DNR Resident Physician Supervision Note: I interviewed and examined the patient. Discussed with Dr. gregorio and agree with findings and plan as documented in the note. Any exceptions or clarifications are listed here: None Documented By: Chencho Chen pt seen twice - w dr gregorio and then later to inform family of hip xray when dr gregorio was in office. no hpi or ros from pt family updated vitals noted nad no pallor or icterus labs and diagnostics reviewed, d/w cardiology a/p altered mental status - encephalopathy superimposed on chronic dementia - ? caused by UTI vs cardiac primary cause (less likely) caused by simple mechanical fall and hip fx hip fx - certainly at least moderate risk for surgery but d/w cardiology and ortho and all in agreement that he is medically acceptable risk due to consequences of untreated hip fx. family understands as well. (d/w dtr and son in law about this - they were going to inform pt's ) elevated troponin - most likely demand ischemia from above DVT proph -lovenox Continued [facility] stay due to: other Discharge planning: uncertain
[2016-12-26] MEDS ORDERED: ACETAMINOPHEN 325 MG TAB PO PRN (13:45)
[2016-12-26] MEDS ORDERED: METOPROLOL TARTRATE 25 MG TAB PO ONE (14:15)
[2016-12-26] MEDS ORDERED: LISINOPRIL 5 MG TAB PO ONE (14:15)
[2016-12-26] MEDS: NSS + 20MEQ KCL 1000ML 1,000 ML IV SCH (14:35)
[2016-12-26 15:22] VITALS: BP 139/67; PULSE 82; TEMP 37.4; O2SAT 99
--- NOTE | 2016-12-26 15:22 | DIAGNOSTIC IMAGING REPORT ---
AP PELVIS AND RIGHT HIP 4 VIEWS CLINICAL HISTORY: Right hip pain status post trauma COMPARISON STUDY: No previous studies for comparison. FINDINGS: There is a subcapital right hip fracture. There is no dislocation. IMPRESSION: Subcapital right hip fracture. Electronically signed by: Don Hdz M.D. 12/26/2016 3:21 PM Dictated Date/Time: 12/26/2016 3:20 PM
[2016-12-26 20:00] VITALS: BP 128/63; PULSE 79; TEMP 37.1; O2SAT 96
[2016-12-26] MEDS: ENOXAPARIN 30 MG/0.3 ML SYR SC SCH (21:11)
[2016-12-26] MEDS: METOPROLOL TARTRATE 25 MG TAB PO SCH (21:13)
--- NOTE | 2016-12-26 21:59 | CARDIOLOGY CONSULTATION ---
DATE OF CONSULTATION: 12/26/2016 HISTORY OF PRESENT ILLNESS: Mr. Dilan Peterson is an 86-year-old gentleman with a history of dementia. He is currently a resident at [facility] and was discovered to have had an unwitnessed fall, recently. There was no obvious injury; however, over the course of the next day, the patient became less responsive and his mental status had changed. He was therefore sent to [facility] for an evaluation. In the Emergency Room, he was found to be nonverbal and poorly responsive. He also had an element of hypoxemia. The patient underwent routine evaluation including head CT and serum studies, which suggested possibility of an occult urinary tract infection and elevated cardiac biomarkers. Based on this information, the patient was admitted for treatment of his UTI and telemetry monitoring. At the time of this interview, the patient was alert but responded poorly to questions. His answers were often inappropriate. I did contact the patient's who stated that he indeed had a fall at [facility] and had become nonverbal and less responsive. She states that his condition today is improved. Generally speaking, he is not active, but spent most of the day in a wheelchair. He is interactive; however and recognizes his and is somewhat agitated when she leaves. According to his , he has not been complaining of any new problems recently. PAST MEDICAL HISTORY: Significant for dementia, both Alzheimer's and vascular type; Parkinson disease, allergic rhinitis, neuropathy, depression, peptic ulcer disease and cataracts. PAST SURGICAL HISTORY: Includes cataracts, bilateral carotid endarterectomies and a tonsillectomy. OUTPATIENT MEDICATIONS: Included aspirin, citalopram, Colace, donepezil, gabapentin, pravastatin, and Namenda. MEDICAL ALLERGIES: SIMVASTATIN. SOCIAL HISTORY: The patient has a remote history of tobacco abuse, not currently smoking. No alcohol use currently. 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 FAMILY HISTORY: Noncontributory given the patient's advanced age, no premature coronary artery disease. REVIEW OF SYSTEMS: Not obtainable due to the patient's dementia and current condition. PHYSICAL EXAMINATION: GENERAL: The patient does not appear to have any acute distress. He was lying in a gurney with his eyes closed, but he would respond to verbal stimuli and attempts verbal answers, although most of these were nonsensical and unintelligible. VITAL SIGNS: Include a blood pressure of 139/67 with a pulse of 82. HEENT: Sclerae are anicteric. Extraocular movements appear to be intact. NECK: Palpation of submandibular region did not reveal any significant lymphadenopathy. The carotids are palpable bilaterally. I do not appreciate bruits on auscultation. He did have carotid endarterectomy scars. Thyroid was not enlarged. LUNGS: Auscultation of his lung apices revealed them to be clear. I do not appreciate any rales, wheezes or rhonchi. He appeared to have normal respiratory effort without use of accessory muscles. CARDIAC: Revealed him to be in a regular rhythm. I did not appreciate any murmurs on exam and the PMI was not markedly displaced. EXTREMITIES: Evaluation of both wrists revealed radial pulses that were equal in intensity. There is no evidence of cyanosis or clubbing. Evaluation of his lower extremities did not reveal any significant peripheral edema. I did not appreciate any rashes on examination today. LABORATORY STUDIES: Included a white cell count of 10.9, a hemoglobin of 9.4, a platelet count of 152. Sodium was 145, potassium is 4.3, BUN was 26, creatinine was 1.1. Initial cardiac troponin was 5, 2nd was 2.9, and third was 2.2. N-terminal ProBNP was elevated at 4820. IMAGING STUDIES: multiple imaging studies were obtained including a chest x-ray, head CT, most recently a hip film. Hip film revealed a right hip fracture. Chest x-ray suggested perhaps mild pulmonary vascular congestion. Head CT revealed known ischemic changes without acute ischemia or event. The patient had an EKG obtained at the time of admission which revealed him to be in normal sinus rhythm without notable ST or T-wave abnormalities. Echocardiogram was also performed today which revealed the patient to have preserved left ventricular systolic function with evidence of anterior wall hypokinesis. There is an element of mild pulmonary hypertension. ASSESSMENT AND PLAN: 1. Non-ST elevation myocardial infarction. The patient does have wall motion abnormality on his echocardiogram, which suggests an old infarct, the chronicity of this finding is unclear. He does not have evidence of an anterior infarction on his EKG. Overall, left ventricular function appears to be preserved. The patient did not complain of chest discomfort, but his dementia makes his history difficult. Cardiac markers are trending downward. There is also a possibility that this did not represent an acute coronary syndrome but demand ischemia, in the setting of likely fixed coronary disease. The patient was noted be hypoxic at the time of admission. I had a discussion with the patient's regarding an evaluation and the desires of the patient in reference to invasive studies. At this point, she feels that invasive studies should be deferred and that we should concentrate primarily on comfort measures. As such, it would seem reasonable to treat the patient with aspirin, Plavix, a beta nelida and atorvastatin, should he tolerate all of these medications. It seems that the patient may need operative repair of a hip fracture and institution of the antiplatelet agents could be deferred until that is completed. 2. Congestive heart failure. The patient did have elevated N-terminal ProBNP and some evidence of pulmonary vascular congestion on x-ray. If he remains hypoxic, consideration could be given toward an element of diuretic therapy. FINAL RECOMMENDATIONS: 1. Continue metoprolol as currently prescribed. 2. Agree with addition of lisinopril. 3. Antiplatelet therapy including aspirin and Plavix, when clinically appropriate. 4. Atorvastatin 40 mg daily. 5. We will continue to follow the patient's clinical course and discuss any additional therapy or evaluations, based on his clinical course. KARL
[2016-12-27] VITALS (10 sets, daily range): BP systolic 113–143; BP diastolic 53–81; PULSE 60–69; TEMP 36.7–38.2; O2SAT 95–100
[2016-12-27] MEDS: NSS + 20MEQ KCL 1000ML 1,000 ML IV SCH (00:44)
[2016-12-27] MEDS: CEFTRIAXONE SOD INJ 1 GM in DEXTROSE 5% ADD-VANTAGE 50ML 50 ML IV SCH (05:03)
[2016-12-27] MEDS ORDERED: SODIUM CHLORIDE 0.9% 500ML 500 ML IV STA (05:10)
[2016-12-27] MEDS ORDERED: PIPERACILL/TAZOBAC IV 3.375 GM in DEXTROSE 5% 100ML IV ONE (05:30)
[2016-12-27] MEDS ORDERED: PIPERACILL/TAZOBAC CONSULT ACTIVE PRN (05:45)
[2016-12-27] MEDS ORDERED: PIPERACILL/TAZOBAC IV 3.375 GM in DEXTROSE 5% 100ML 100 ML IV SCH (06:00)
[2016-12-27] MEDS: ACETAMINOPHEN IV 650 MG in EMPTY BAG 0 ML IV PRN ×2 (06:16→15:46)
--- NOTE | 2016-12-27 06:31 | DIAGNOSTIC IMAGING REPORT ---
CHEST 2 VIEWS ROUTINE CLINICAL HISTORY: hypoxia, fever COMPARISON STUDY: 12/25/2016 FINDINGS: The cardiac and mediastinal contours remain stable. Small pleural effusions are suspected. There is no lobar consolidation. There is mild pulmonary vascular congestion. There are more focal interstitial opacities with the right upper lung zone, these could represent focal edema or an infectious/inflammatory process. Clinical and radiographic follow-up is recommended[ IMPRESSION: 1. Mild pulmonary vascular congestion and small bilateral pleural effusions. 2. For focal interstitial opacities in the right upper lung zone, focal edema versus an infectious/inflammatory process Electronically signed by: Don Hdz M.D. 12/27/2016 6:30 AM Dictated Date/Time: 12/27/2016 6:28 AM
[2016-12-27] MEDS ORDERED: ONDANSETRON INJ 2 MG/ML 2 ML VIAL ONE (06:41)
[2016-12-27] MEDS ORDERED: PROPOFOL IV EMULSION 10 MG/ML 20 ML VIAL IV ONE (06:41)
[2016-12-27] MEDS ORDERED: LIDOCAINE HCL 2% 2 ML VIAL (20MG/ML) ONE (06:41)
[2016-12-27] MEDS ORDERED: FENTANYL CITRATE INJ 50 MCG/1 ML 2 ML VIAL ONE (06:41)
[2016-12-27] MEDS ORDERED: GLYCOPYRROLATE INJ 0.2 MG/ML VIAL ONE (06:41)
[2016-12-27] MEDS ORDERED: NEOSTIGMINE METHYLSULFATE 5 MG/5 ML SYR ONE (06:41)
[2016-12-27] MEDS ORDERED: MIDAZOLAM HCL 1 MG/ML 2ML VIAL ONE (06:42)
[2016-12-27 06:44] LABS: BASO % 0.1 %; BASO ABS # 0.01 K/uL (0-0.2); HEMATOCRIT 27.1 % (42-52); IG% 0.1 %; LYMPH % 20.5 %; LYMPH ABS # 1.69 K/uL (1.2-3.4); MEAN CELL VOLUME 92.8 fL (80-100); MEAN CORPUSCULAR HEMOGLOBIN 30.1 pg (25-34); MEAN CORPUSCULAR HGB CONC 32.5 g/dl (32-36); MEAN PLATELET VOLUME 10.1 fL (7.4-10.4); MONO % 8.8 %; NEUT % 69.5 %; PLATELET COUNT 152 K/uL (130-400); RED BLOOD COUNT 2.92 M/uL (4.7-6.1); WHITE BLOOD COUNT 8.25 K/uL (4.8-10.8)
[2016-12-27 07:12] LABS: BUN/CREATININE RATIO 26.2 (10-20); CREATININE 0.88 mg/dl (0.60-1.40); MAGNESIUM 2.3 mg/dl (1.8-2.4); POTASSIUM 4.2 mmol/L (3.5-5.1)
[2016-12-27 07:28] LABS: COMPLETE YES
[2016-12-27] MEDS ORDERED: PIPERACILL/TAZOBAC IV 4.5 GM in DEXTROSE 5% 100ML 100 ML IV SCH (07:30)
[2016-12-27] MEDS ORDERED: FUROSEMIDE INJ 20 MG in SYRINGE 0 ML IV ONE (07:30)
[2016-12-27] MEDS: METOPROLOL TARTRATE 25 MG TAB PO SCH ×2 (08:21→20:19)
[2016-12-27] MEDS: LISINOPRIL 5 MG TAB PO SCH (08:21)
[2016-12-27] MEDS: SODIUM CHLORIDE 0.9% 1000ML 1,000 ML IV SCH ×2 (08:23→20:50)
[2016-12-27 08:35] LABS: C-REACTIVE PROTEIN 9.65 mg/dl (0-0.29)
--- NOTE | 2016-12-27 08:38 | CONSULTATION REPORT ---
DATE OF CONSULTATION: 12/27/2016 HISTORY OF PRESENT ILLNESS: The patient is an 86-year-old white male who resides at [facility] and has history of dementia and current encephalopathy during this hospital stay. The patient also noted to havea history of depression, hypercholesterolemia. The patient apparently had an unwitnessed fall at [facility] and was found lying on the floor. He was initially brought into the hospital and when they started working with him with physical therapy he was favoring his right lower extremity, especially at the hip. X-rays were taken and it was found that he had a subcapital hip fracture of the right hip. He was then placed in Mays's traction and we have been asked to see him for his hip fracture. PAST MEDICAL HISTORY: As noted above. Also, history of allergic rhinitis, Alzheimer's dementia is noted, arteriosclerotic dementia, carotid stenosis, depression, dyslipidemia, history of CVA, peptic ulcer disease, right bundle-branch block. PAST SURGICAL HISTORY: Cataract removal, left and right carotid endarterectomies. FAMILY AND SOCIAL HISTORY: As per admitting history and physical. MEDICATIONS: Aspirin 81 mg p.o. daily, citalopram 10 mg p.o. q.a.m., Colace 100 mg p.o. b.i.d., Aricept 10 mg p.o. q.p.m., gabapentin 100 mg p.o. b.i.d., Namenda 10 mg p.o. q.p.m., polyethylene glycol 17 grams p.o. daily, Pravachol 40 mg p.o. q.p.m., calorie supplement 60 mL p.o. q.i.d., acetaminophen 650 mg p.o. q. 6 hours p.r.n., Dulcolax 1 suppository ME as directed p.r.n., artificial tears p.r.n. every 6 hours if needed, milk of magnesia 30 mL p.o. UD p.r.n., prune juice 1 dose p.o. UD p.r.n., Fleet Enema 1 each UD p.r.n. ALLERGIES: SIMVASTATIN. REVIEW OF SYSTEMS: As per admitting history and physical. PHYSICAL EXAMINATION: VITAL SIGNS: This morning temperature 38.2, pulse 61, respirations 22, BP 136/69, pulse ox 97 on 2 liters of O2. GENERAL: The patient is an elderly white male who appears his stated age. He appears to be sleeping and when I called his name he does open his eyes briefly and then closes them again. During the whole exam he does not open his eyes at all. He does not follow commands and does not answer questions. SKIN: Warm and dry. EXTREMITIES: On examination of his right lower extremity, he has Mays's traction which is left on during exam. He has no obvious tenderness on palpation of his right knee and right ankle. In touching his foot he does start to move his toes and he elicits no painful response with range of motion of his right ankle. Gentle log rolling of the right hip elicits slight response from the patient, but nothing overtly so. On examination of the left lower extremity I can take his left hip, knee, and ankle through gentle passive range of motion of which he does not show any sense of pain and does not open his eyes. Upper extremities appear to be within normal limits as far as range of motion and again patient does not respond to the passive range of motion. IMAGING: Review of x-rays shows a pelvis film showing a subcapital right hip fracture. ASSESSMENT: Right subcapital hip fracture. PLAN: X-rays have been reviewed with Dr. Helton and it is felt that he would either need a bipolar hemiarthroplasty versus total hip arthroplasty. With the patient's stated dementia and encephalopathy and his mobility issues at [facility] it is felt between Dr. Helton who will also discuss the case with Dr. Ramirez that a bipolar hemiarthroplasty would be the best course of action at this time; however, this morning, the patient's temperature is 38.2, new blood cultures are still pending, old blood cultures are negative and urine culture was pinpoint growth and reincubating. I have spoken to Dr. Chen who is planning to review chest films, etc. to see of other possible sources of his fever. The patient will obviously need to be optimized for his surgery and has been made n.p.o. for possible bipolar hemiarthroplasty today. We will continue to follow his course and discuss the case with medicine service to decide final course of action. KARL
[2016-12-27] MEDS ORDERED: ERGOCALCIFEROL 50,000 INTER.UNIT CAP PO SCH (09:00)
[2016-12-27] MEDS ORDERED: CHOLECALCIFEROL 1000 INTER.UNIT TAB PO ONE (09:00)
--- NOTE | 2016-12-27 09:55 | Family Medicine Progress Note ---
Progress Note Date of Service December 27, 2016. Subjective Pt evaluation today including: physical exam, chart review, lab review, review of studies, conversation w/ farm consultant, review of inpatient medication list PO Intake: NPO Voiding: unger catheter in place Patient once again is nonverbal, alertness is same as yesterday Patient did develop a fever of 38.2F and was given tylenol, CXR and blood cultures, zosyn was also started He is planned for repair of right hip fracture today unable to complete ROS because patient is non verbal Medications Medications Administered Medications (Trade) Dose Ordered Sig/Honorio Route Start Time Stop Time Status Last Admin Dose Admin Sodium Chloride (Nss 1000ml) 1,000 ml @ 999 mls/hr Q1H1M STAT IV 12/25/16 15:46 12/25/16 16:46 DC 12/25/16 16:28 999 MLS/HR Piperacillin Sod/ Tazobactam Sod (Zosyn Iv) 4.5 gm NOW STAT IV 12/25/16 16:46 12/25/16 16:48 DC 12/25/16 16:57 4.5 GM Enoxaparin Sodium 30 mg 30 mg DAILY@2000 SC 12/25/16 22:00 01/24/17 21:59 12/26/16 21:11 30 MG Potassium Chloride/Sodium Chloride 1,000 ml @ 75 mls/hr [id number] IV 12/25/16 21:30 12/27/16 07:24 DC 12/27/16 00:44 75 MLS/HR Ceftriaxone Sodium/Dextrose (Rocephin Inj/ Dextrose Add-Nash 50ML) 50 ml @ 100 mls/hr Q24H IV 12/26/16 05:00 12/27/16 07:14 DC 12/27/16 05:03 100 MLS/HR Acetaminophen (Tylenol Tab) 650 mg Q4H PRN PO 12/26/16 13:45 01/25/17 13:44 12/26/16 14:35 650 MG Lisinopril (Zestril Tab) 5 mg QAM PO 12/27/16 09:00 01/26/17 08:59 12/27/16 08:21 5 MG Lisinopril (Zestril Tab) 5 mg NOW ONCE PO 12/26/16 14:15 12/26/16 14:16 DC 12/26/16 16:38 5 MG Metoprolol Tartrate (Lopressor Tab) 12.5 mg BID PO 12/26/16 21:00 01/25/17 20:59 12/27/16 08:21 12.5 MG Metoprolol Tartrate 12.5 mg 12.5 mg NOW ONCE PO 12/26/16 14:15 12/26/16 14:16 DC 12/26/16 16:39 12.5 MG Acetaminophen 650 mg/Empty Bag 65 ml @ 260 mls/hr Q6H PRN IV 12/27/16 05:15 01/26/17 05:14 12/27/16 06:16 260 MLS/HR Sodium Chloride 500 ml @ 999 mls/hr Q31M STAT IV 12/27/16 05:10 12/27/16 05:40 DC 12/27/16 05:57 999 MLS/HR Piperacillin Sod/ Tazobactam Sod 3.375 gm/Dextrose 115 ml @ 230 mls/hr TODAY@0530 ONCE IV 12/27/16 05:30 12/27/16 05:59 DC 12/27/16 06:31 230 MLS/HR Sodium Chloride (Nss 1000ml) 1,000 ml @ 75 mls/hr [id number] IV 12/27/16 07:30 12/28/16 23:29 12/27/16 08:23 75 MLS/HR Objective Vital Signs Date Time Temp Pulse Resp B/P Pulse Ox O2 Delivery O2 Flow Rate FiO2 12/27/16 04:00 38.2 61 22 136/69 97 Nasal Cannula 2.0 12/27/16 04:00 97 Nasal Cannula 2.0 12/27/16 00:06 37.3 66 22 126/53 98 Nasal Cannula 2.0 12/27/16 00:00 95 Nasal Cannula 2.0 12/26/16 20:00 37.1 79 24 128/63 96 Nasal Cannula 2.0 12/26/16 20:00 96 Nasal Cannula 2.0 12/26/16 16:00 Nasal Cannula 2.0 12/26/16 15:22 37.4 82 20 139/67 99 Nasal Cannula 2.0 12/26/16 12:00 Nasal Cannula 2.0 12/26/16 11:58 36.6 84 18 169/84 98 Physical Exam General Appearance: no apparent distress Eyes: normal inspection ENT: + pertinent finding (adentulous) Neck: supple Respiratory/Chest: no respiratory distress, no accessory muscle use, + decreased breath sounds (bilat bases) Cardiovascular: regular rate, rhythm, no murmur Abdomen: normal bowel sounds, non tender, soft Extremities: normal inspection, no pedal edema, no calf tenderness, + pertinent finding (Mays's traction on right) Neurologic/Psychiatric: alert, + pertinent finding (unable to complete orientation because non verbal) Skin: normal color, warm/dry, no rash Lymphatic: no adenopathy Laboratory Results Results Past 24 Hours Test 12/26/16 12:26 12/27/16 06:18 Range/Units Total Creatine Kinase 470 39-308 U/L Creatine Kinase MB 4.7 0.5-3.6 ng/ml Creatine Kinase MB Ratio 1.0 0-3.0 Troponin I 2.250 0-0.045 ng/ml White Blood Count 8.25 4.8-10.8 K/uL Red Blood Count 2.92 4.7-6.1 M/uL Hemoglobin 8.8 14.0-18.0 g/dL Hematocrit 27.1 42-52 % Mean Corpuscular Volume 92.8 80-100 fL Mean Corpuscular Hemoglobin 30.1 25-34 pg Mean Corpuscular Hemoglobin Concent 32.5 32-36 g/dl Platelet Count 152 130-400 K/uL Mean Platelet Volume 10.1 7.4-10.4 fL Neutrophils (%) (Auto) 69.5 % Lymphocytes (%) (Auto) 20.5 % Monocytes (%) (Auto) 8.8 % Eosinophils (%) (Auto) 1.0 % Basophils (%) (Auto) 0.1 % Neutrophils # (Auto) 5.73 1.4-6.5 K/uL Lymphocytes # (Auto) 1.69 1.2-3.4 K/uL Monocytes # (Auto) 0.73 0.11-0.59 K/uL Eosinophils # (Auto) 0.08 0-0.5 K/uL Basophils # (Auto) 0.01 0-0.2 K/uL RDW Standard Deviation 51.7 36.4-46.3 fL RDW Coefficient of Variation 15.2 11.5-14.5 % Immature Granulocyte % (Auto) 0.1 % Immature Granulocyte # (Auto) 0.01 0.00-0.02 K/uL Red Blood Cell Morphology Unremarkable Sodium Level 145 136-145 mmol/L Potassium Level 4.2 3.5-5.1 mmol/L Chloride Level 112 98-107 mmol/L Carbon Dioxide Level 28 21-32 mmol/L Anion Gap 5.0 3-11 mmol/L Blood Urea Nitrogen 23 7-18 mg/dl Creatinine 0.88 0.60-1.40 mg/dl Est Creatinine Clear Calc Drug Dose 64.3 ml/min Estimated GFR () 90.8 Estimated GFR (Non- 78.3 BUN/Creatinine Ratio 26.2 10-20 Random Glucose 114 70-99 mg/dl Calcium Level 8.0 8.5-10.1 mg/dl Magnesium Level 2.3 1.8-2.4 mg/dl C-Reactive Protein 9.65 0-0.29 mg/dl 25-Hydroxy Vitamin D Total 11.9 30-100 ng/ml Microbiology Results 12/27/16 Blood Culture, Received Pending 12/27/16 Blood Culture, Received Pending Assessment and Plan This is an 86 yo m that was brought to the hospital for evaluation for ALOC and was found on the floor after a fall. While in the ED he was found to have a POC troponin of approx 5 and a UA concerning for a UTI so the patient was placed on tele and started on Rocephin. The troponin did trend down while the patient was in the hospital however the echo was reflective of a nonstemi and patient was started on BB and lisinopril. Cardio was consulted and discussion was had about a potential catheterization and decision was made for medical management. He was also found to have pain of the right hip while undergoing PT. A right subcapital fracture was noted and ortho was consulted for repair. The night prior to repair the patient spiked a temperature and Zosyn was added as well as blood cultures and a chest xray which was suspicious of a PNA. Elevated Troponin- NSTEMI - troponin has been down trending - Echo- * Left ventricular systolic function is normal. * Grade I diastolic dysfunction, (abnormal relaxation pattern). * There are regional wall motion abnormalities as specified. * There is moderate anterior wall hypokinesis. * Calcified mitral apparatus. * Right ventricular systolic pressure is elevated at 40-50mmHg. - ASA and plavix after surgery - Lisinopril 5 mg and Metoprolol 12.5 mg bid started - pravastatin cont, patient had "muscle aches" with simvastatin Fever - secondary to pulmonary source vs UTI vs noninfectious -UA has pintpoint growth and patient has been on Rocephin - Initial blood culture negative to date and new cultures are pending - CXR suspicious for PNA Right subcapital hip fracture - ortho consult- appreciate input - plan is to undergo surgery today Poor urinary output secondary to dehydration - received a bolus last night and NSS IVF cont'd - will continue to monitor I&O - BUN is improving, Cr is WNL Metabolic encephalopathy- patient is back to mental status as per - CT head negative and no focal findings on exam - Swallow study, PT/OT Abnormal UA; concerning for UTI - Rocephin d/c and changed to zosyn - awaiting culture results - IVF as above Dementia/depression-- will hold citalopram, donepezil, gabapentin, and Namenda and restart after surgery Hypercholesterolemia- -continued pravastatin DNR Resident Physician Supervision Note: I interviewed and examined the patient. Discussed with Dr. Willoughby and agree with findings and plan as documented in the note. Any exceptions or clarifications are listed here: None Documented By: Chencho Chen no HPI or ROS obtainable saw twice today and discussed with ortho vitls noted nad breathing unlabored no adventitious sounds notable on auscultation but subpar exam due to postioning and cooperation, no pallor or icterus possible sepsis (SIRS present on admission w WBC and RR, now w fever) -has been on empiric abx since admission -ddx being UTI vs pneumonia vs both - clinically difficult to discern due to lack of history and age/comorbidities/dementia masking many findings that would yield more clear dx -continue empiric abx, follow cx, trend inflammatory markers for help in ? improvement given difficult clinical picture osteoporotic hip fracture -for repair 12/28 -replace D -consider risks/benefits of bisphosphonate after discharge severe demand ischemia vs mild NSTEMI -due to stressors from above -med management DVT proph -lovenox Continued [facility] stay due to: fever, abnormal vital signs, ambulation difficulties Discharge planning: uncertain
[2016-12-27] MEDS ORDERED: PIPERACILL/TAZOBAC IV 3.375 GM in DEXTROSE 5% 100ML IV SCH (10:00)
[2016-12-27] MEDS: PIPERACILL/TAZOBAC IV 3.375 GM in DEXTROSE 5% 100ML IV SCH ×2 (10:00→17:56)
--- NOTE | 2016-12-27 10:57 | Medical Student: [facility] ---
Med Student Progress Note Date of Service December 27, 2016. Subjective Pt evaluation today including: conversation w/ patient, conversation w/ family () Voiding: unger catheter in place Mr. Zafar Peterson is a 86 yo male with chronic advanced dementia and multiple medical conditions on hospital day three with an acutely altered mental status. His notes that on Friday he was sleepy all day and was found on the floor. Yesterday he was found to have a R subcapital hip fracture and his UA from admission showed a UTI. Yesterday he spiked a fever of 38.2 after being afebrile, and his temp has since normalized with acetaminophen. CXR was questionable for pneumonia as additional cause of infection, and rocephin for UTI was changed to Zosyn q8hrs last night. This morning Mr. Peterson was very somnolent and had to be awakened. He only was able to answer a few questions, including that he felt "fine" and his ' s name. He could not state where he was, his birthday or his anniversary. He also could not answer if he was in any pain. ROS was limited to these questions. In conversation with his , who arrived 20 minutes prior to our conversation , he is less somnolent than Friday before he was brought to the hospital, but appears to be more tired than yesterday. He was tired yesterday morning and more awake yesterday afternoon, but his dementia seems to be worse each afternoon. I discussed hip fracture and fever with her. She feels he would want it to be repaired. Review of Systems Constitutional: + problem reported (HPI limited due to confusion, unable to stay awake during conversation), + see HPI Objective Vital Signs Date Time Temp Pulse Resp B/P Pulse Ox O2 Delivery O2 Flow Rate FiO2 12/27/16 04:00 38.2 61 22 136/69 97 Nasal Cannula 2.0 12/27/16 04:00 97 Nasal Cannula 2.0 12/27/16 00:06 37.3 66 22 126/53 98 Nasal Cannula 2.0 12/27/16 00:00 95 Nasal Cannula 2.0 12/26/16 20:00 37.1 79 24 128/63 96 Nasal Cannula 2.0 12/26/16 20:00 96 Nasal Cannula 2.0 12/26/16 16:00 Nasal Cannula 2.0 12/26/16 15:22 37.4 82 20 139/67 99 Nasal Cannula 2.0 12/26/16 12:00 Nasal Cannula 2.0 12/26/16 11:58 36.6 84 18 169/84 98 Physical Exam Comments: Vitals: See above. General: Elderly, frail appearing male. Sleeping and very somnolent. HEENT: PERRLA, EOMI, MMM. Dentures not in place. No anterior cervical adenopathy. Neck: Scar seen along L neck. No carotid bruit. CV: Soft S1, S2. No murmur rub or gallop. Peripheral pulses weak but equal bilaterally. Pulm: Lungs clear to auscultation with normal breathing while asleep. Unable to follow command to take deep breath. Abdomen: Soft, non-tender, nondistended. : Unger cath inplace. Extremities: Trace lower extremity edema. Laboratory Results Last 24 Hours Test 12/26/16 12:26 12/27/16 06:18 Total Creatine Kinase 470 U/L Creatine Kinase MB 4.7 ng/ml Creatine Kinase MB Ratio 1.0 Troponin I 2.250 ng/ml White Blood Count 8.25 K/uL Red Blood Count 2.92 M/uL Hemoglobin 8.8 g/dL Hematocrit 27.1 % Mean Corpuscular Volume 92.8 fL Mean Corpuscular Hemoglobin 30.1 pg Mean Corpuscular Hemoglobin Concent 32.5 g/dl Platelet Count 152 K/uL Mean Platelet Volume 10.1 fL Neutrophils (%) (Auto) 69.5 % Lymphocytes (%) (Auto) 20.5 % Monocytes (%) (Auto) 8.8 % Eosinophils (%) (Auto) 1.0 % Basophils (%) (Auto) 0.1 % Neutrophils # (Auto) 5.73 K/uL Lymphocytes # (Auto) 1.69 K/uL Monocytes # (Auto) 0.73 K/uL Eosinophils # (Auto) 0.08 K/uL Basophils # (Auto) 0.01 K/uL RDW Standard Deviation 51.7 fL RDW Coefficient of Variation 15.2 % Immature Granulocyte % (Auto) 0.1 % Immature Granulocyte # (Auto) 0.01 K/uL Red Blood Cell Morphology Unremarkable Sodium Level 145 mmol/L Potassium Level 4.2 mmol/L Chloride Level 112 mmol/L Carbon Dioxide Level 28 mmol/L Anion Gap 5.0 mmol/L Blood Urea Nitrogen 23 mg/dl Creatinine 0.88 mg/dl Est Creatinine Clear Calc Drug Dose 64.3 ml/min Estimated GFR () 90.8 Estimated GFR (Non- 78.3 BUN/Creatinine Ratio 26.2 Random Glucose 114 mg/dl Calcium Level 8.0 mg/dl Magnesium Level 2.3 mg/dl C-Reactive Protein 9.65 mg/dl 25-Hydroxy Vitamin D Total 11.9 ng/ml Procalcitonin 2.49 ng/ml Assessment and Plan Assessment and Plan: Mr. Peterson is an 86 yo male with multiple medical condition on hospital day three with acute deterioration of mental status, fever of unknown origin and R hip fracture. He is very somnolent and mostly nonverbal. Much of the history comes from his at the bedside. Individual assessment and plan are as follows. 1. Fever: Acute. Meets Sepsis criteria with fever of 38.2, RR 22 and suspected pneumonia and UTI. Given tylenol. Will recheck vitals. White count down to normal limits this morning. New blood cultures taken, pending. 2: UTI: Acute, asymptomatic. Has received two days rocephin, started on zosyn early this morning. Will recheck UA via unger today. 3. Pneumonia: Unknown cause. CXR showing some pulmonary edema and RUL interstitial opacities suggestive of possible pneumonia. Due to living at [facility], will treat as HCAP. Aspiration unknown but possible. Started zosyn this morning. Procalcitonin and crp pending. 4. Altered mental status: Acute. Improved yesterday, more somnolent today. Likely secondary to UTI, pneumonia or other metabolic cause. Will monitor MSE and continue to use as gauge. 5. R subcapital hip fracture: Fond on xray yesterday. Ortho consulted, not yet seen. Discussed with , who would like for it to be fixed. Needs to be seen and cleared by ortho, which likely will not happen if febrile. 6. NSTEMI: Troponins elevated to 5, now trending down. Seen by cardiology who recommended no cath. Patient is on BB and lisinopril. Cardiology recommends duel antiplatelet therapy with aspirin and clopidogrel when appropriate. Will hold for now pending possible hip surgery. 7. Poor urinary output: Acute: Possible dehydration. Urine output increased to 200ml with fluid bolus last night. Currently on normal saline drip. Will continue with unger cath. 8. Hyperlipidemia. Was on Pravastatin, cardiology recommends 40mg atorvastatin. Will discuss with . 9. Anemia: Likely chronic. Slightly down today, likely due to fluid bolus last night. No consideration for transfusion at this time. 10. DVT Prophylaxis: Lovenox sq. 11. Disposition: Continued admission due to continued altered mental status, need for IV meds, and possible hip surgery. Continued [facility] stay due to: fever, abnormal vital signs, ambulation difficulties, multiple IV medications needed Discharge planning: uncertain
--- NOTE | 2016-12-27 12:05 | Clinical Documentation Query ---
CLINICAL DOCUMENTATION QUERY 86 year old male who presents to the Emergency Room with acute altered mental status. The medical record has surmised this patient with possible UTI and and pneumonia, as well as have had a NSTEMI. In your clinical opinion is this patient being managed for: ( ) Sepsis POA in setting of UTI and/or pneumonia causing NSTEMI/type 2MI. ( ) Other explanation of clinical findings (Please Explain) ( ) Unable to determine (Please Define) ( ) Need to Discuss ( X ) Not Agree The medical record reflects the following clinical findings, treatment, and risk factors. Clinical Indicators: Fever 38.0, WBC 12.30, CRP 9.65, Procalcitonin 2.49, Possible UTI, Possible pneumonia, Treatment: IVF bolus, IV Zosyn, IV Ceftriaxone, Risk Factors: Age, dehydration, multiple underlying infective sources. Please clarify and document your clinical opinion in the progress notes and discharge summary. Terms such as "probable", "suspected", "likely", "questionable", "possible", or "still to be ruled out" are acceptable. IF IN AGREEMENT, YOU MUST DOCUMENT ABOVE DIAGNOSTIC STATEMENT IN DAILY PROGRESS NOTES AND DISCHARGE SUMMARY. This document is not part of the patient's record. Thank You, Yemi Mcgowan, VIBHA [phone]
--- NOTE | 2016-12-27 12:06 | Clinical Documentation Query ---
CLINICAL DOCUMENTATION QUERY 86 year old male who presents to the Emergency Room with acute altered mental status. The medical record has surmised this patient with possible UTI and and pneumonia, as well as have had a NSTEMI. In your clinical opinion is this patient being managed for: ( x ) Sepsis POA in setting of UTI and/or pneumonia causing NSTEMI/type 2MI. ( ) Other explanation of clinical findings (Please Explain) ( ) Unable to determine (Please Define) ( ) Need to Discuss ( ) Not Agree The medical record reflects the following clinical findings, treatment, and risk factors. Clinical Indicators: Fever 38.0, WBC 12.30, CRP 9.65, Procalcitonin 2.49, Possible UTI, Possible pneumonia, Treatment: IVF bolus, IV Zosyn, IV Ceftriaxone, Risk Factors: Age, dehydration, multiple underlying infective sources. Please clarify and document your clinical opinion in the progress notes and discharge summary. Terms such as "probable", "suspected", "likely", "questionable", "possible", or "still to be ruled out" are acceptable. IF IN AGREEMENT, YOU MUST DOCUMENT ABOVE DIAGNOSTIC STATEMENT IN DAILY PROGRESS NOTES AND DISCHARGE SUMMARY. This document is not part of the patient's record. Thank You, Yemi Mcgowan, VIBHA [phone]
[2016-12-27] MEDS: PRAVASTATIN SOD 40 MG TAB PO SCH (20:18)
[2016-12-28] VITALS (8 sets, daily range): BP systolic 119–137; BP diastolic 55–68; PULSE 65–83; TEMP 36.8–37.2; O2SAT 95–100
[2016-12-28] MEDS: PIPERACILL/TAZOBAC IV 3.375 GM in DEXTROSE 5% 100ML IV SCH ×3 (02:22→18:23)
[2016-12-28] MEDS: ACETAMINOPHEN IV 650 MG in EMPTY BAG 0 ML IV PRN (06:01)
[2016-12-28] MEDS ORDERED: BACITRACIN 50000 UNIT VIAL ONE (07:06)
[2016-12-28] MEDS ORDERED: PROPOFOL IV EMULSION 10 MG/ML 20 ML VIAL IV ONE (07:09)
[2016-12-28] MEDS ORDERED: FENTANYL CITRATE INJ 50 MCG/1 ML 2 ML VIAL ONE (07:09)
[2016-12-28] MEDS ORDERED: MIDAZOLAM HCL 1 MG/ML 2ML VIAL ONE (07:12)
[2016-12-28 07:22] LABS: BASO % 0.1 %; BASO ABS # 0.01 K/uL (0-0.2); HEMATOCRIT 26.5 % (42-52); IG% 0.1 %; LYMPH % 22.4 %; LYMPH ABS # 1.67 K/uL (1.2-3.4); MEAN CELL VOLUME 92.3 fL (80-100); MEAN CORPUSCULAR HEMOGLOBIN 29.3 pg (25-34); MEAN CORPUSCULAR HGB CONC 31.7 g/dl (32-36); MEAN PLATELET VOLUME 9.8 fL (7.4-10.4); MONO % 7.9 %; NEUT % 65.5 %; PLATELET COUNT 154 K/uL (130-400); RED BLOOD COUNT 2.87 M/uL (4.7-6.1); WHITE BLOOD COUNT 7.44 K/uL (4.8-10.8)
[2016-12-28 07:38] LABS: BUN/CREATININE RATIO 21.9 (10-20); CREATININE 0.95 mg/dl (0.60-1.40); MAGNESIUM 2.3 mg/dl (1.8-2.4); POTASSIUM 3.9 mmol/L (3.5-5.1)
[2016-12-28 08:09] LABS: COMPLETE YES
--- NOTE | 2016-12-28 08:54 | Orthopedic Progress Note ---
Orthopedic Progress Note Date of Service December 28, 2016. Subjective Additional Notes: not verbally responsive this am, awakens to voice but not following commands Objective leg in bucks traction, cr <2, moves the foot and toes Date Time Temp Pulse Resp B/P Pulse Ox O2 Delivery O2 Flow Rate FiO2 12/28/16 07:55 36.8 65 19 119/55 98 Nasal Cannula 2.0 12/28/16 04:00 95 Nasal Cannula 2.0 12/28/16 04:00 37.1 69 16 122/66 97 12/28/16 00:00 100 Nasal Cannula 2.0 12/27/16 23:44 37.1 65 20 113/55 99 Nasal Cannula 2.0 12/27/16 20:00 100 Nasal Cannula 2.0 12/27/16 19:27 36.7 61 16 121/57 100 Nasal Cannula 2.0 12/27/16 16:37 36.7 69 16 130/64 98 Nasal Cannula 2.0 12/27/16 16:00 99 Nasal Cannula 2.0 12/27/16 12:29 Nasal Cannula 2.0 12/27/16 12:10 36.9 60 18 143/81 99 Nasal Cannula 2.0 Laboratory Results 24 Hours: Test 12/28/16 07:07 White Blood Count 7.44 K/uL Red Blood Count 2.87 M/uL Hemoglobin 8.4 g/dL Hematocrit 26.5 % Mean Corpuscular Volume 92.3 fL Mean Corpuscular Hemoglobin 29.3 pg Mean Corpuscular Hemoglobin Concent 31.7 g/dl Platelet Count 154 K/uL Mean Platelet Volume 9.8 fL Neutrophils (%) (Auto) 65.5 % Lymphocytes (%) (Auto) 22.4 % Monocytes (%) (Auto) 7.9 % Eosinophils (%) (Auto) 4.0 % Basophils (%) (Auto) 0.1 % Neutrophils # (Auto) 4.86 K/uL Lymphocytes # (Auto) 1.67 K/uL Monocytes # (Auto) 0.59 K/uL Eosinophils # (Auto) 0.30 K/uL Basophils # (Auto) 0.01 K/uL Assessment & Plan Assessment: R hip subcapital femoral neck fx Plan: Currently not cleared medically, has new infiltrates on CXR and has not been afebrile for 24 hours. Medically looking like friday or friday for OR. Plan bipolar once medically stable
--- NOTE | 2016-12-28 09:23 | Anesthesiology Progress Note ---
Anesthesia Progress Note Date of Service December 28, 2016. Progress Notes The patient is an 86 y/o male with a h/o carotid disease s/p B CEA, CVAs, Anemia and Dementia ( Alzheimer's and vascular) who was found to have a R hip fracture after an unwitnessed fall at [facility]. The patient is not able to provide an good history due to his profound dementia. On admission, the patient was found to have a troponin leak and an echo was performed which showed new wall motion abnormalities concerning for NSTEMI. Cardiology was consulted. It was felt that due to the patient's multiple comorbidities that he would be a better candidate for medical management rather than intervention. The patient spiked a fever yesterday so surgery was cancelled. I spoke to Dr. Mendenhall this morning who is following the patient on the floor and he is concerned about the patient's CXR which showed small pleural effusions and focal opacification. He would like to obtain another chest xray and have the patient to remain afebrile for another 24 hours before clearing the patient for surgery. The patient has been anemic with Hgb today down to 8.4. A crossmatch was ordered this morning in anticipation of surgery.
[2016-12-28] MEDS: SODIUM CHLORIDE 0.9% 1000ML 1,000 ML IV SCH (10:35)
[2016-12-28] MEDS: CHOLECALCIFEROL 1000 INTER.UNIT TAB PO SCH (10:35)
[2016-12-28] MEDS: LISINOPRIL 5 MG TAB PO SCH (10:35)
[2016-12-28] MEDS: METOPROLOL TARTRATE 25 MG TAB PO SCH ×2 (10:36→21:10)
--- NOTE | 2016-12-28 10:43 | DIAGNOSTIC IMAGING REPORT ---
CHEST ONE VIEW PORTABLE CLINICAL HISTORY: Tang infiltrates dyspnea COMPARISON STUDY: 12/27/2016 FINDINGS: Findings consistent with developing congestive failure. Increased prominence of pulmonary vasculature compared to the prior study. Trace pleural fluid both lung bases. IMPRESSION: Developing congestive failure Electronically signed by: Leonides Berry M.D. 12/28/2016 10:42 AM Dictated Date/Time: 12/28/2016 10:42 AM
--- NOTE | 2016-12-28 12:40 | Pulmonary Consultation ---
History General Date of Service: December 28, 2016. Stated Complaint: Altered Mental Status, Elevated Troponin HPI The patient is a 86 year old male who presents to [facility] with complaints of Altered Mental Status, Elevated Troponin. The patient's primary care provider is [facility] Lovelace. 86 y/o male admitted 12/25/16 for increased AMS and associated low SaO2 documented at 89% on RA then increased to 95% on 2Lnc by EMS. This history is via the and EMS system as the patients acute on chronic AMS limits his ability to answer questions. He is a resident of [place] [facility] and was noted to be in his usual state of health prior to this episode. Since his transfer the patient has had complications with NSTEMI, right hip fracture and continuous O2 requirement. Work-Up WBC: [id number] (Neuto#: [phone]) H/H: / Plt: [id number] INR/PT/aPTTT: 1.1/11.4/28.4 BUN/Cr: 32/1.30--21/0.95 Troponin I: 5.080--2.930--2.250 BNP: 4820 CRP: >9.65 Procalcitonin: 2.49--1.42 ALB: 2.9 Ca: <8.1 UA: + sings of [place] Microbiology: Urine: Apha Strep EKG compared to 11/12/15 NSR, left access deviation CT head: no-acute changes CXR (12/25/16): Slight progression of the diffuse interstitial and vascular thickening. Stable blunting of the right lateral costophrenic sulcus. CXR (12/27/16) 1. pulmonary vascular congestion and small bilateral pleural effusions 2. focal interstitial opacities in the right upper lung zone, focal edema versus an infectious/inflammatory process CXR (12/28/16) Increased Hilar fullness with ari-bronchial cuffing and cephalization Right Hip (12/26/16) subcapital right hip fracture without dislocation Antibiotic Zosyn Historian: family, EMS Review of Systems patient is altered and unable to perform a 12 point ROS Past Medical History Past Medical History: (1) Allergic rhinitis (2) Alzheimers disease (3) Arteriosclerotic dementia (4) Carotid stenosis (5) Depression (6) Dyslipidemia (7) H/O: CVA (cerebrovascular accident) (8) Peptic ulcer disease (9) RBBB Past Surgical History: (1) History of cataract surgery (2) History of left-sided carotid endarterectomy (3) History of right-sided carotid endarterectomy Family History Patient reports no known family medical history. EMS reports no known significant family medical history Social History Smoking Status: Never Smoker Smokeless Tobacco Use: No Alcohol Use: none Drug Use: none Marital Status: Housing status: lives with family Occupational Status: retired Hx Tobacco Use In Past Year?: No Smoking Status: Never Smoker Marital status: Housing status: lives with family Occupational Status: retired Immunizations History of Influenza Vaccine: Yes Influenza Vaccine Date: Apr 11, 2008 History of Tetanus Vaccine?: Unknown History of Pneumococcal: Yes Pneumococcal Date: Apr 11, 2006 History of Hepatitis B Vaccine: Unknown History of MDRO History of MDRO: No Allergies Coded Allergies: Simvastatin (Unverified Adverse Reaction, Mild, muscle pain, 11/12/15) Current Medications Reported Home Medications Medications Dose Route/Sig Max Daily Dose Days Date Category Dose Instructions Fleet Enema (Sodium Phosphate/Biphosphate) Isabella 1 Ea NC UD PRN 12/25/16 Reported NEEDED FOR NO BOWEL MOVEMENT FOR 4 DAYS Dulcolax (Bisacodyl) 10 Mg Sup 1 Supp NC UD PRN 12/25/16 Reported NEEDED FOR NO BOWEL MOVEMENT FOR 3 DAYS Milk Of Magnesia (Magnesium Hydroxide) 30 Ml Susp 30 Ml PO UD PRN 12/25/16 Reported NEEDED FOR NO BOWEL MOVEMENT FOR 3 DAYS Prune Juice (Prune) Liqd 1 Dose PO UD PRN 12/25/16 Reported PRUNE JUICE/STEWED PRUNES NEEDED FOR NO BOWEL MOVEMENT FOR 2 DAYS. Artificial Tears (Hrpdgcrh-Yabfmunfgaik-Mobjdobm) 1 Moises Moises 1 Drop OPB Q6H PRN 12/25/16 Reported Tylenol (Acetaminophen) 325 Mg Tab 650 Mg PO Q6H PRN 12/25/16 Reported NEEDED FOR PAIN OR TEMPERATURE. NOT TO EXCEED 3 GM APAP /24 HOURS [2.0 Calorie Supp] 60 Ml PO QID 12/25/16 Reported MED PASS SUPPLEMENT Pravachol (Pravastatin Sodium) 40 Mg Tab 40 Mg PO QPM 12/25/16 Reported Polyethylene Glycol 3350 (Polyethylene Glycol 3350 (Bulk) 1 Pow Pow 17 Gm PO DAILY 12/25/16 Reported MIX WITH 4-8 OUNCES OF FLUID Docusate Sodium 100 Mg Cap 100 Mg PO BID 12/25/16 Reported Citalopram Hydrobromide 10 Mg Tab 10 Mg PO QAM 12/25/16 Reported Aspirin Chewable (Aspirin) 81 Mg Chew 81 Mg PO DAILY 12/25/16 Reported Aricept (Donepezil Hydrochloride) 10 Mg Tab 10 Mg PO QPM 09/19/15 Reported Neurontin (Gabapentin) 100 Mg Cap 100 Mg PO BID 09/19/15 Reported Namenda (Memantine) 10 Mg Tab 10 Mg PO QPM 09/19/15 Reported Physical Physical Exam Vital Signs: Date Time Temp Pulse Resp B/P Pulse Ox O2 Delivery O2 Flow Rate FiO2 12/28/16 11:46 99 Nasal Cannula 2.0 12/28/16 11:44 37.1 68 18 133/68 99 Nasal Cannula 2.0 12/28/16 08:00 Nasal Cannula 2.0 12/28/16 07:55 36.8 65 19 119/55 98 Nasal Cannula 2.0 12/28/16 04:00 95 Nasal Cannula 2.0 12/28/16 04:00 37.1 69 16 122/66 97 12/28/16 00:00 100 Nasal Cannula 2.0 12/27/16 23:44 37.1 65 20 113/55 99 Nasal Cannula 2.0 12/27/16 20:00 100 Nasal Cannula 2.0 12/27/16 19:27 36.7 61 16 121/57 100 Nasal Cannula 2.0 12/27/16 16:37 36.7 69 16 130/64 98 Nasal Cannula 2.0 12/27/16 16:00 99 Nasal Cannula 2.0 12/27/16 12:29 Nasal Cannula 2.0 General Appearance: NO APPARENT DISTRESS Head: NORMOCEPHALIC Eyes: PERRLA, NO DISCHARGE, EOMI, SCLERAE NORMAL ENT: NORMAL EAR EXAM, NORMAL NASAL EXAM, NORMAL MOUTH EXAM Neck: NORMAL RANGE OF MOTION, TRACHEA MIDLINE, other (1+ JVD) Respiratory: rales (with thoracic US showing global B-lines and bilateral small pleural effusions) Cardiovasular: REGULAR RATE/RHYTHM, NORMAL S1S2, NO M/G/R Abdomen: NON TENDER, NORMAL BOWEL SOUNDS, NO REBOUND, NO MASSES Genitourinary - Male: EXTERNAL GENITALIA NORMAL Back: NORMAL INSPECTION, NO MIDLINE TENDERNESS, NO CVA TENDERNESS Upper Extremities: NO EDEMA, NO DEFORMITY Lower Extremities: edema Edema: Bilateral LE (2+) Pulses: carotid (R) (1+), carotid (L) (1+), posterior tibial (R), posterior tibial (L) (1+) Neuro: disoriented, confused Reflexes: biceps (R) (1+), bicpes (L) (1+), achilles (R) (1+), achilles (L) (1+ ) Babinski Testing: right (equivocal), left (equivocal) Psychiatric: other (confussed ) Diagnostics Labs Results Past 24 Hours Test 12/28/16 07:07 Range/Units White Blood Count 7.44 4.8-10.8 K/uL Red Blood Count 2.87 4.7-6.1 M/uL Hemoglobin 8.4 14.0-18.0 g/dL Hematocrit 26.5 42-52 % Mean Corpuscular Volume 92.3 80-100 fL Mean Corpuscular Hemoglobin 29.3 25-34 pg Mean Corpuscular Hemoglobin Concent 31.7 32-36 g/dl Platelet Count 154 130-400 K/uL Mean Platelet Volume 9.8 7.4-10.4 fL Neutrophils (%) (Auto) 65.5 % Lymphocytes (%) (Auto) 22.4 % Monocytes (%) (Auto) 7.9 % Eosinophils (%) (Auto) 4.0 % Basophils (%) (Auto) 0.1 % Neutrophils # (Auto) 4.86 1.4-6.5 K/uL Lymphocytes # (Auto) 1.67 1.2-3.4 K/uL Monocytes # (Auto) 0.59 0.11-0.59 K/uL Eosinophils # (Auto) 0.30 0-0.5 K/uL Basophils # (Auto) 0.01 0-0.2 K/uL RDW Standard Deviation 51.5 36.4-46.3 fL RDW Coefficient of Variation 15.0 11.5-14.5 % Immature Granulocyte % (Auto) 0.1 % Immature Granulocyte # (Auto) 0.01 0.00-0.02 K/uL Red Blood Cell Morphology Unremarkable Sodium Level 146 136-145 mmol/L Potassium Level 3.9 3.5-5.1 mmol/L Chloride Level 113 98-107 mmol/L Carbon Dioxide Level 28 21-32 mmol/L Anion Gap 5.0 3-11 mmol/L Blood Urea Nitrogen 21 7-18 mg/dl Creatinine 0.95 0.60-1.40 mg/dl Est Creatinine Clear Calc Drug Dose 59.6 ml/min Estimated GFR () 84.3 Estimated GFR (Non- 72.7 BUN/Creatinine Ratio 21.9 10-20 Random Glucose 103 70-99 mg/dl Calcium Level 8.0 8.5-10.1 mg/dl Magnesium Level 2.3 1.8-2.4 mg/dl Procalcitonin 1.42 0-0.5 ng/ml Diagnostic Radiology CXR (12/25/16): Slight progression of the diffuse interstitial and vascular thickening. Stable blunting of the right lateral costophrenic sulcus. CXR (12/27/16) 1. pulmonary vascular congestion and small bilateral pleural effusions 2. focal interstitial opacities in the right upper lung zone, focal edema versus an infectious/inflammatory process CXR (12/28/16) Increased Hilar fullness with ari-bronchial cuffing and cephalization Right Hip (12/26/16) subcapital right hip fracture without dislocation EKG EKG compared to 11/12/15 NSR, left access deviation Impression Assessment and Plan 86 y/o male admitted with acute on chronic AMS, right hip fracture, mild hypoxemia and NSTEMI: 1) Pre-operative Pulmonary Evaluation: The patient has multiple pulmonary ari- operative risk factors: CHF, recent NSTEMI, AMS age, albumin >3.0 and elevated Procalcitonin and new CXR infiltrate suggesting new onset pneumonia. If we us the ARSCAT pre-operative pulmonary risk index this patient currently has a 42.1 % risk for per-operative pulmonary complications. I highly suggest this patient is not taken for any elective surgery until he is medically improved. 2) Pulmonary Opacification: This was seen on the CXR from 12/27/16 and not noted on 12/25/16 or 12/28/16 suggesting it is most likely pulmonary edema or infection. If patient is stabilized non-contrast CT of the Thorax can be performed in the future for a more definitive evaluation. 3) Hypoxemia: Most likely a combination of CHF and possible pna with the new CXR findings 4) ID) Agree with Zosyn at this time but [facility] the [facility] vancomycin should be added as his elevated Procalcitonin levels suggest a higher risk for pending sepsis. The acute on chronic metal status changes can also suggest meningitis but no sings on physical exam at this time. I will add Ampicillin and suggest a neurology consult at this time.
[2016-12-28] MEDS ORDERED: VANCOMYCIN CONSULT ACTIVE PRN (13:00)
[2016-12-28] MEDS ORDERED: VANCOMYCIN INJ 1,900 MG in SODIUM CHLORIDE 0.9% 500ML 500 ML IV ONE (13:00)
--- NOTE | 2016-12-28 14:55 | Progress Note ---
Subjective Date of Service: December 28, 2016. Subjective Pt evaluation today including: conversation w/ family, chart review, lab review , review of studies, conversation w/ safety and health consultant, review of inpatient medication list Pain: not in pain Voiding: unger catheter in place Pt was planned for repair of right hip fracture today, after going through pt present history, labs and imaging, decided to postponed, and obtain a pulmonary referral. Pt has advanance dementia and unable to give any history, however he is awake, and is at bedside. unable to complete ROS because patient is non verbal Problem List Medical Problems: (1) Confusion Status: Acute (2) Elevated troponin Status: Acute (3) Sepsis Status: Acute (4) Urinary tract infection Status: Acute (5) Weakness Status: Acute Medications Medications (Trade) Dose Ordered Sig/[place] Route Start Time Stop Time Status Last Admin Dose Admin Pravastatin Sodium (Pravachol Tab) 40 mg QPM PO 12/27/16 21:00 01/26/17 20:59 12/27/16 20:18 40 MG Cholecalciferol 2000 inter.unit 2,000 inter.unit QAM PO 12/28/16 09:00 01/27/17 08:59 12/28/16 10:35 2,000 INTER.UNIT Vancomycin HCl/ Sodium Chloride (Vancomycin Inj/ Nss 500ml) 538 ml @ 200 mls/hr 1300 ONCE IV 12/28/16 13:00 12/28/16 15:41 12/28/16 13:23 200 MLS/HR Objective Vital Signs Date Time Temp Pulse Resp B/P Pulse Ox O2 Delivery O2 Flow Rate FiO2 12/28/16 11:46 99 Nasal Cannula 2.0 12/28/16 11:44 37.1 68 18 133/68 99 Nasal Cannula 2.0 12/28/16 08:00 Nasal Cannula 2.0 12/28/16 07:55 36.8 65 19 119/55 98 Nasal Cannula 2.0 12/28/16 04:00 95 Nasal Cannula 2.0 12/28/16 04:00 37.1 69 16 122/66 97 12/28/16 00:00 100 Nasal Cannula 2.0 12/27/16 23:44 37.1 65 20 113/55 99 Nasal Cannula 2.0 12/27/16 20:00 100 Nasal Cannula 2.0 5/19/17 19:27 36.7 61 16 121/57 100 Nasal Cannula 2.0 12/27/16 16:37 36.7 69 16 130/64 98 Nasal Cannula 2.0 12/27/16 16:00 99 Nasal Cannula 2.0 Physical Exam Comments: General Appearance: no apparent distress Eyes: normal inspection Neck: supple Respiratory/Chest: no respiratory distress, no accessory muscle use, + decreased breath sounds (bilat bases) Cardiovascular: regular rate, rhythm, no murmur Abdomen: normal bowel sounds, non tender, soft Extremities: normal inspection, no pedal edema, no calf tenderness, + pertinent finding (Mays's traction on right) Neurologic/Psychiatric: alert, + pertinent finding (unable to complete orientation because non verbal) Skin: normal color, warm/dry, no rash Lymphatic: no adenopathy Laboratory Results Last 24 Hours Test 12/28/16 07:07 White Blood Count 7.44 K/uL Red Blood Count 2.87 M/uL Hemoglobin 8.4 g/dL Hematocrit 26.5 % Mean Corpuscular Volume 92.3 fL Mean Corpuscular Hemoglobin 29.3 pg Mean Corpuscular Hemoglobin Concent 31.7 g/dl Platelet Count 154 K/uL Mean Platelet Volume 9.8 fL Neutrophils (%) (Auto) 65.5 % Lymphocytes (%) (Auto) 22.4 % Monocytes (%) (Auto) 7.9 % Eosinophils (%) (Auto) 4.0 % Basophils (%) (Auto) 0.1 % Neutrophils # (Auto) 4.86 K/uL Lymphocytes # (Auto) 1.67 K/uL Monocytes # (Auto) 0.59 K/uL Eosinophils # (Auto) 0.30 K/uL Basophils # (Auto) 0.01 K/uL RDW Standard Deviation 51.5 fL RDW Coefficient of Variation 15.0 % Immature Granulocyte % (Auto) 0.1 % Immature Granulocyte # (Auto) 0.01 K/uL Red Blood Cell Morphology Unremarkable Sodium Level 146 mmol/L Potassium Level 3.9 mmol/L Chloride Level 113 mmol/L Carbon Dioxide Level 28 mmol/L Anion Gap 5.0 mmol/L Blood Urea Nitrogen 21 mg/dl Creatinine 0.95 mg/dl Est Creatinine Clear Calc Drug Dose 59.6 ml/min Estimated GFR () 84.3 Estimated GFR (Non- 72.7 BUN/Creatinine Ratio 21.9 Random Glucose 103 mg/dl Calcium Level 8.0 mg/dl Magnesium Level 2.3 mg/dl Procalcitonin 1.42 ng/ml Assessment and Plan This is an 86 yo m that was brought to the hospital for evaluation for ALOC and was found on the floor after a fall. While in the ED he was found to have a POC troponin of approx 5 and a UA concerning for a UTI so the patient was placed on tele and started on Rocephin. The troponin did trend down while the patient was in the hospital however the echo was reflective of a non stemi and patient was started on BB and lisinopril. Cardio was consulted and discussion was had about a potential catheterization and decision was made for medical management. He was also found to have pain of the right hip while undergoing PT. A right subcapital fracture was noted and ortho was consulted for repair. The night prior to repair the patient spiked a temperature and Zosyn was added as well as blood cultures and a chest x ray which was suspicious of a PNA vs possible sepsis and acute on chronic CHF with positive fluid balance, not medical cleared for go under hip surgery. Fever - secondary to PNA vs UTI vs sepsis - Procalcitonin is elevated, however WBC are trending downward, Blood cultures pending. Afebrile past 24hours. - Cont Zosyn, and added Vancomycin and ampicillin today. - Initial blood culture negative to date and new cultures are pending - will consult ID - CXR (12/25/16): Slight progression of the diffuse interstitial and vascular thickening. Stable blunting of the right lateral costophrenic sulcus. CXR (12/27/16) 1. pulmonary vascular congestion and small bilateral pleural effusions 2. focal interstitial opacities in the right upper lung zone, focal edema versus an infectious/inflammatory process CXR (12/28/16) Increased Hilar fullness with ari-bronchial cuffing and cephalization - Pulmonary Consult appreciated per pulmonary Pulmonary Opacification: This was seen on the CXR from 12/27/16 and not noted on 12/25/16 or 12/28/16 suggesting it is most likely pulmonary edema or infection. If patient is stabilized non- contrast CT of the Thorax can be performed in the future for a more definitive evaluation. Hypoxemia: Most likely a combination of CHF and possible pna with the new CXR findings CHF: The patient is +4L positive on his intake since his arrival. we will start gentle diuresis with lasix 20mg po daily and decrease IVF to 50ml/hr. Elevated Troponin- NSTEMI - troponin has been down trending - Echo- * Left ventricular systolic function is normal. * Grade I diastolic dysfunction, (abnormal relaxation pattern). * There are regional wall motion abnormalities as specified. * There is moderate anterior wall hypokinesis. * Calcified mitral apparatus. * Right ventricular systolic pressure is elevated at 40-50mmHg. - ASA and plavix after surgery - Lisinopril 5 mg and Metoprolol 12.5 mg bid started Right subcapital hip fracture - ortho consult- appreciate input - not clear per pulmonary, need to optimize the medical management. Poor urinary output secondary to dehydration - received a bolus last night and NSS IVF cont'd - will continue to monitor I&O - BUN is improving, Cr is WNL Metabolic encephalopathy- patient is back to BL mental status as per - CT head negative and no focal findings on exam - Swallow study, PT/OT - Neurology consult requested Abnormal UA; concerning for UTI - Rocephin d/c and changed to zosyn - awaiting culture results - IVF as above Dementia/depression-- will hold citalopram, donepezil, gabapentin, and Namenda and restart after surgery - will consult neurology as per pulmonary recommendation. DNR, palliative care consult request. Continued [facility] stay due to: fever, abnormal vital signs, ambulation difficulties, multiple IV medications needed Discharge planning: uncertain
[2016-12-28 15:24] LABS: BASO % 0.1 %; BASO ABS # 0.01 K/uL (0-0.2); EOS % 3.6 %; HEMATOCRIT 26.4 % (42-52); IG% 0.1 %; LYMPH % 26.8 %; LYMPH ABS # 1.81 K/uL (1.2-3.4); MEAN CELL VOLUME 93.3 fL (80-100); MEAN CORPUSCULAR HEMOGLOBIN 29.7 pg (25-34); MEAN CORPUSCULAR HGB CONC 31.8 g/dl (32-36); MEAN PLATELET VOLUME 8.9 fL (7.4-10.4); NEUT % 61.4 %; PLATELET COUNT 145 K/uL (130-400); RED BLOOD COUNT 2.83 M/uL (4.7-6.1); WHITE BLOOD COUNT 6.76 K/uL (4.8-10.8)
[2016-12-28 15:41] LABS: BUN/CREATININE RATIO 21.3 (10-20); CALCIUM 7.9 mg/dl (8.5-10.1); CREATININE 0.97 mg/dl (0.60-1.40); POTASSIUM 3.8 mmol/L (3.5-5.1)
[2016-12-28 15:47] LABS: COMPLETE YES
[2016-12-28] MEDS ORDERED: FUROSEMIDE 20 MG TAB PO ONE (16:00)
[2016-12-28] MEDS: AMPICILLIN IV 2,000 MG in SODIUM CHLOR 0.9% AD-VAN 100ML 100 ML IV SCH ×2 (16:15→19:55)
--- NOTE | 2016-12-28 16:21 | Pharmacy Progress Note ---
Pharmacy Antibiotic Consult Date of Service: December 28, 2016. Pharmacy Dosing Scope Pharmacy is consulted to initiate IV Vancomycin dosing therapy, order appropriate labs and adjust drug dose/frequency. Subjective The patient is a 86 year old male admitted on December 25, 2016 at 20:32. Objective Height (Feet): 6 Height (Inches): 0.00 Weight (Kilograms): 74.100 Lab Results (24hrs): Test 12/28/16 07:07 12/28/16 15:10 White Blood Count 7.44 K/uL (4.8-10.8) 6.76 K/uL (4.8-10.8) Red Blood Count 2.87 M/uL (4.7-6.1) 2.83 M/uL (4.7-6.1) Hemoglobin 8.4 g/dL (14.0-18.0) 8.4 g/dL (14.0-18.0) Hematocrit 26.5 % (42-52) 26.4 % (42-52) Mean Corpuscular Volume 92.3 fL (80-100) 93.3 fL (80-100) Mean Corpuscular Hemoglobin 29.3 pg (25-34) 29.7 pg (25-34) Mean Corpuscular Hemoglobin Concent 31.7 g/dl (32-36) 31.8 g/dl (32-36) Platelet Count 154 K/uL (130-400) 145 K/uL (130-400) Mean Platelet Volume 9.8 fL (7.4-10.4) 8.9 fL (7.4-10.4) Neutrophils (%) (Auto) 65.5 % 61.4 % Lymphocytes (%) (Auto) 22.4 % 26.8 % Monocytes (%) (Auto) 7.9 % 8.0 % Eosinophils (%) (Auto) 4.0 % 3.6 % Basophils (%) (Auto) 0.1 % 0.1 % Neutrophils # (Auto) 4.86 K/uL (1.4-6.5) 4.15 K/uL (1.4-6.5) Lymphocytes # (Auto) 1.67 K/uL (1.2-3.4) 1.81 K/uL (1.2-3.4) Monocytes # (Auto) 0.59 K/uL (0.11-0.59) 0.54 K/uL (0.11-0.59) Eosinophils # (Auto) 0.30 K/uL (0-0.5) 0.24 K/uL (0-0.5) Basophils # (Auto) 0.01 K/uL (0-0.2) 0.01 K/uL (0-0.2) RDW Standard Deviation 51.5 fL (36.4-46.3) 51.5 fL (36.4-46.3) RDW Coefficient of Variation 15.0 % (11.5-14.5) 15.0 % (11.5-14.5) Immature Granulocyte % (Auto) 0.1 % 0.1 % Immature Granulocyte # (Auto) 0.01 K/uL (0.00-0.02) 0.01 K/uL (0.00-0.02) Red Blood Cell Morphology Unremarkable Unremarkable Sodium Level 146 mmol/L (136-145) 147 mmol/L (136-145) Potassium Level 3.9 mmol/L (3.5-5.1) 3.8 mmol/L (3.5-5.1) Chloride Level 113 mmol/L (98-107) 113 mmol/L (98-107) Carbon Dioxide Level 28 mmol/L (21-32) 30 mmol/L (21-32) Anion Gap 5.0 mmol/L (3-11) 4.0 mmol/L (3-11) Blood Urea Nitrogen 21 mg/dl (7-18) 21 mg/dl (7-18) Creatinine 0.95 mg/dl (0.60-1.40) 0.97 mg/dl (0.60-1.40) Est Creatinine Clear Calc Drug Dose 59.6 ml/min 58.4 ml/min Estimated GFR () 84.3 82.2 Estimated GFR (Non- 72.7 70.9 BUN/Creatinine Ratio 21.9 (10-20) 21.3 (10-20) Random Glucose 103 mg/dl (70-99) 106 mg/dl (70-99) Calcium Level 8.0 mg/dl (8.5-10.1) 7.9 mg/dl (8.5-10.1) Magnesium Level 2.3 mg/dl (1.8-2.4) Procalcitonin 1.42 ng/ml (0-0.5) Micro Results: Item Value Date Time Blood Culture - Preliminary Resulted 12/25/16 1604 Blood NO GROWTH TO DATE. Blood Culture - Preliminary Resulted 12/25/16 1614 Blood NO GROWTH TO DATE. Urine Culture - Final Complete 12/25/16 1617 Urine,Catheterized Alpha Strep. Not Enterococcus MRSA DNA Surveillance Screen - Final Complete 12/25/16 2205 Nasal Specimen Negative for MRSA by DNA Probe Blood Culture Received 12/27/16 0618 Blood Pending Blood Culture Received 12/27/16 0631 Blood Pending MRSA DNA Surveillance Screen - Final Complete 12/28/16 1327 Nasal Specimen Negative for MRSA by DNA Probe Recent Pertinent Medications Item Value Date Time Vancomycin HCl 270 ml @ 125 mls/hr 12/29/16 0200 1000 mg/Sodium Q12H/IV Chloride Vancomycin HCl 538 ml @ 200 mls/hr 12/28/16 1300 1900 mg/Sodium 1300 ONCE/IV 12/28/16 1323 Chloride Item Value Date Time Ampicillin Sodium 100 ml @ 200 mls/hr 12/28/16 1600 2000 mg/Sodium Q4/IV Chloride Item Value Date Time Piperacillin Sod/ 115 ml @ 28.75 mls/hr 12/27/16 1000 Tazobactam Sod Q8H/IV 12/28/16 1034 3.375 gm/Dextrose Piperacillin Sod/ 4.5 gm 12/25/16 1646 Tazobactam Sod NOW STAT/IV 12/25/16 1657 (Zosyn Iv) Piperacillin Sod/ 115 ml @ 230 mls/hr 12/27/16 0530 Tazobactam Sod TODAY@0530 ONCE/IV 12/27/16 0631 3.375 gm/Dextrose Assessment & Plan Vancomycin * 86 yo M on IV Zosyn, to start IV Vanco & ampicillin for possible sepsis/ meningitis coverage * Loading dose: Vancomycin 1900mg IV x 1 dose * Goal trough level: 15-20mcg/mL * estimated half-life ~12-13hrs * Trough level ordered for: 12/30/16 1400 dose Pharmacy will continue to follow and will adjust dose/frequency as necessary. Thank you
--- NOTE | 2016-12-28 21:06 | Medical Consult ---
Consultation Date of Consultation: December 28, 2016. Attending Physician: Peng Barboza M.D. Reason for Consultation: pneumonia History of Present Illness 86-year-old male, resident of a snf facility, with dementia, was admitted to the hospital after being found to be more lethargic, with worsening mental status, having suffered a fall, and noted to be somewhat hypoxic. He was brought to the emergency department where he was found to have Suffered a right hip fracture, NSTEMI, and had elevated procalcitonin, with evidence of possible urinary tract infection. Chest x-ray, read by me, showed evidence of fluid congestion but no obvious infiltrate. He has been started empirically on IV vancomycin and Zosyn. he is now waiting repair of hip fracture. Past Medical/Surgical History Medical Problems: (1) Confusion Status: Acute (2) Elevated troponin Status: Acute (3) Sepsis Status: Acute (4) Urinary tract infection Status: Acute (5) Weakness Status: Acute Medical Problems: (1) Allergic rhinitis (2) Altered mental status (3) Alzheimers disease (4) Arteriosclerotic dementia (5) Carotid stenosis (6) Dehydration (7) Dementia (8) Depression (9) Dyslipidemia (10) Fever (11) H/O: CVA (cerebrovascular accident) (12) Peptic ulcer disease (13) RBBB (14) Stroke Surgical Problems: (1) History of cataract surgery (2) History of left-sided carotid endarterectomy (3) History of right-sided carotid endarterectomy Family History Patient reports no known family medical history. Social History Smoking Status: Never Smoker Smokeless Tobacco Use: No Alcohol Use: none Drug Use: none Marital Status: Housing Status: lives with family Occupation Status: retired Allergies Coded Allergies: Simvastatin (Unverified Adverse Reaction, Mild, muscle pain, 11/12/15) Current Inpatient Medications Current Inpatient Medications Medications (Trade) Dose Ordered Sig/Honorio Route Start Time Stop Time Status Last Admin Dose Admin Enoxaparin Sodium (Lovenox Inj) 30 mg DAILY@1999 SC 12/25/16 22:00 01/24/17 21:59 Future Hold 12/26/16 21:11 30 MG Ondansetron HCl (Zofran Inj) 4 mg Q6H PRN IV 12/25/16 20:45 01/24/17 20:44 Bisacodyl (Dulcolax Supp) 10 mg DAILY PRN MA 12/25/16 20:45 01/24/17 20:44 Acetaminophen (Tylenol Tab) 650 mg Q4H PRN PO 12/26/16 13:45 01/25/17 13:44 12/26/16 14:35 650 MG Lisinopril (Zestril Tab) 5 mg QAM PO 12/27/16 09:00 01/26/17 08:59 12/28/16 10:35 5 MG Metoprolol Tartrate 12.5 mg 12.5 mg BID PO 12/26/16 21:00 01/25/17 20:59 12/28/16 10:36 12.5 MG Acetaminophen/ Empty Bag (Ofirmev Iv/ Empty Iv Bag 100ml) 65 ml @ 260 mls/hr Q6H PRN IV 12/27/16 05:15 01/26/17 05:14 12/28/16 06:01 260 MLS/HR Piperacillin Sod/ Tazobactam Sod 1 ea 1 ea UD PRN N/A 12/27/16 05:45 01/26/17 05:44 Sodium Chloride (Nss 1000ml) 1,000 ml @ 50 mls/hr Q20H IV 12/27/16 07:30 12/29/16 07:29 12/28/16 10:35 75 MLS/HR Pravastatin Sodium 40 mg 40 mg QPM PO 12/27/16 21:00 01/26/17 20:59 12/27/16 20:18 40 MG Piperacillin Sod/ Tazobactam Sod/ Dextrose (Zosyn Iv/D5 100ml) 115 ml @ 28.75 mls/ hr Q8H IV 12/27/16 10:00 01/03/17 09:59 12/28/16 18:23 28.75 MLS/HR Ergocalciferol (Vitamin D Cap) 50,000 interunit Fr@0900 PO 12/27/16 09:00 01/26/17 08:59 12/27/16 14:19 50,000 INTERUNIT Cholecalciferol 2000 inter.unit 2,000 inter.unit QAM PO 12/28/16 09:00 01/27/17 08:59 12/28/16 10:35 2,000 INTER.UNIT Vancomycin HCl 1000 mg/Sodium Chloride 270 ml @ 125 mls/hr Q12H IV 12/29/16 02:00 01/08/17 01:59 Ampicillin Sodium/ Sodium Chloride (Ampicillin Iv/ Nss Ad-Van 100ml) 100 ml @ 200 mls/hr Q4 IV 12/28/16 16:00 01/07/17 15:59 12/28/16 19:55 200 MLS/HR Vancomycin HCl (Consult) 1 ea UD PRN N/A 12/28/16 13:00 01/27/17 12:59 Furosemide (Lasix Tab) 20 mg QAM PO 12/29/16 09:00 01/28/17 08:59 Review of Systems Unable to obtain because of patient's mental status Physical Exam Date Time Temp Pulse Resp B/P Pulse Ox O2 Delivery O2 Flow Rate FiO2 12/28/16 19:04 37.1 83 16 137/61 99 Nasal Cannula 2.0 12/28/16 15:55 97 Nasal Cannula 2.0 12/28/16 15:52 37.2 66 16 122/64 97 Nasal Cannula 2.0 12/28/16 11:46 99 Nasal Cannula 2.0 12/28/16 11:44 37.1 68 18 133/68 99 Nasal Cannula 2.0 12/28/16 08:00 Nasal Cannula 2.0 12/28/16 07:55 36.8 65 19 119/55 98 Nasal Cannula 2.0 12/28/16 04:00 95 Nasal Cannula 2.0 12/28/16 04:00 37.1 69 16 122/66 97 12/28/16 00:00 100 Nasal Cannula 2.0 12/27/16 23:44 37.1 65 20 113/55 99 Nasal Cannula 2.0 General Appearance: WD/WN, no apparent distress Head: normocephalic, atraumatic Eyes: normal inspection, EOMI, sclerae normal ENT: normal ENT inspection, pharynx normal Neck: supple, no adenopathy, thyroid normal, trachea midline Respiratory/Chest: chest non-tender, normal breath sounds, no respiratory distress, + rales Cardiovascular: regular rate, rhythm, no gallop, no murmur Abdomen/GI: normal bowel sounds, non tender, soft, no organomegaly Back: normal inspection, no CVA tenderness Extremities/Musculoskelatal: no calf tenderness, + pertinent finding ( right leg in traction) Neurologic/Psych: alert, + disoriented Skin: normal color, warm/dry, no rash Lymphatic: no adenopathy Laboratory Results RUN DATE: 12/27/16 [facility] LAB PAGE 1 RUN TIME: 1200 Specimen Inquiry PATIENT: Kasie HIGGINS LOC: [facility] U # : [id number] AGE/SX: 86/M ROOM: E212 REG : 12/25/[address]: Peng Barboza M.D : 1930 BED: 1 DIS : STATUS: ADM IN TLOC: SPEC #: [id number] ALECIA: 12/25/16 STATUS: COMP REQ #: [id number] RECD: 12/25/[address]: Kalyan Castañeda M.D. 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 Y Procedure Result Verified Site URINE CULTURE Final 12/27/16-1200 Organism 1 ALPHA STREP. NOT ENTEROCOCCUS COLONY COUNT >100,000 CFU/ml SENS NO SENSITIVITY TO FOLLOW Date/Time Source Procedure Growth Status 12/28/16 13:27 Nasal MRSA DNA Surveillance Screen - Final Specimen Negative for MRSA by DNA Probe Complete Last 24 Hours Test 12/28/16 07:07 12/28/16 15:10 White Blood Count 7.44 K/uL 6.76 K/uL Red Blood Count 2.87 M/uL 2.83 M/uL Hemoglobin 8.4 g/dL 8.4 g/dL Hematocrit 26.5 % 26.4 % Mean Corpuscular Volume 92.3 fL 93.3 fL Mean Corpuscular Hemoglobin 29.3 pg 29.7 pg Mean Corpuscular Hemoglobin Concent 31.7 g/dl 31.8 g/dl Platelet Count 154 K/uL 145 K/uL Mean Platelet Volume 9.8 fL 8.9 fL Neutrophils (%) (Auto) 65.5 % 61.4 % Lymphocytes (%) (Auto) 22.4 % 26.8 % Monocytes (%) (Auto) 7.9 % 8.0 % Eosinophils (%) (Auto) 4.0 % 3.6 % Basophils (%) (Auto) 0.1 % 0.1 % Neutrophils # (Auto) 4.86 K/uL 4.15 K/uL Lymphocytes # (Auto) 1.67 K/uL 1.81 K/uL Monocytes # (Auto) 0.59 K/uL 0.54 K/uL Eosinophils # (Auto) 0.30 K/uL 0.24 K/uL Basophils # (Auto) 0.01 K/uL 0.01 K/uL RDW Standard Deviation 51.5 fL 51.5 fL RDW Coefficient of Variation 15.0 % 15.0 % Immature Granulocyte % (Auto) 0.1 % 0.1 % Immature Granulocyte # (Auto) 0.01 K/uL 0.01 K/uL Red Blood Cell Morphology Unremarkable Unremarkable Sodium Level 146 mmol/L 147 mmol/L Potassium Level 3.9 mmol/L 3.8 mmol/L Chloride Level 113 mmol/L 113 mmol/L Carbon Dioxide Level 28 mmol/L 30 mmol/L Anion Gap 5.0 mmol/L 4.0 mmol/L Blood Urea Nitrogen 21 mg/dl 21 mg/dl Creatinine 0.95 mg/dl 0.97 mg/dl Est Creatinine Clear Calc Drug Dose 59.6 ml/min 58.4 ml/min Estimated GFR () 84.3 82.2 Estimated GFR (Non- 72.7 70.9 BUN/Creatinine Ratio 21.9 21.3 Random Glucose 103 mg/dl 106 mg/dl Calcium Level 8.0 mg/dl 7.9 mg/dl Magnesium Level 2.3 mg/dl Procalcitonin 1.42 ng/ml Patient Name: RONALDOKasie NICKIE Unit Number: [id number] Dictated: 12/28/161041 Transcribed: 12/28/16 104 MS Printed Date/Time: [~ rep prt dt]/[~ rep prt tm] [~ rep ct labl] - [~ rep ct ivnm] [facility] [place] [address] Dictated: 12/28/16 1042 Transcribed: 12/28/16 1042 MS Printed Date/Time: [~ rep prt dt]/[~ rep prt tm] [~ rep ct labl] - [~ rep ct ivnm] [~ rep ct add3]] CHEST ONE VIEW PORTABLE CLINICAL HISTORY: Tang infiltrates dyspnea COMPARISON STUDY: 12/27/2016 FINDINGS: Findings consistent with developing congestive failure. Increased prominence of pulmonary vasculature compared to the prior study. Trace pleural fluid both lung bases. IMPRESSION: Developing congestive failure Electronically signed by: Leonides Berry M.D. 12/28/2016 10:42 AM Dictated Date/Time: 12/28/2016 10:42 AM The status of this report is Signed. Draft = Not yet reviewed or approved by Radiologist. Signed = Reviewed and approved by Radiologist. <AttendingPhy>Peng Barboza M.D.</AttendingPhy> <FamilyPhy>[facility]</ FamilyPhy> <PrimaryPhy>[facility]</PrimaryPhy> <UnitNumber>[id number]</ UnitNumber> <VisitNumber>[id number]</VisitNumber> <PatientName>Kasie HIGGINS</PatientName> <DateOfBirth>1930</DateOfBirth> <Location>[facility]</ Location> <ServiceDate>12/25/16</ServiceDate> <MNE>ESINDI</MNE> <OrderingPhy> Robyn Mendenhall MD</OrderingPhy> <OrderingPhyMNE>f rep ord dr morrow</OrderingPhyMNE > <DictatingPhyMNE>f rep dict dr morrow</DictatingPhyMNE> <CCListMNE>f rep ct mne</ CCListMNE> <AdmittingPhyMNE>f pt admit dr morrow</AdmittingPhyMNE> <AttendingPhyMNE >f pt attend dr morrow</AttendingPhyMNE> <ConsultingPhyMNE>f pt consult dr morrow</ConsultingPhyMNE> <FamilyPhyMNE>f pt fam dr morrow</FamilyPhyMNE> <OtherPhyMNE>f pt other dr morrow</OtherPhyMNE> < PrimaryPhyMNE>f pt prim care dr morrow</PrimaryPhyMNE> <ReferringPhyMNE>f pt referring dr morrow</ReferringPhyMNE> Assessment & Plan 86-year-old male with dementia, now with hip fracture, non STEMI, with possible urinary tract infection with culture positive for streptococcal species. Chest x-ray appears more consistent with failure rather than pulmonary infection. I have discontinued ampicillin as Zosyn should provide adequate coverage pending final culture results and sensitivity. Will adjust antibiotics once these results are available. Will follow.
[2016-12-28] MEDS: PRAVASTATIN SOD 40 MG TAB PO SCH (21:10)
[2016-12-29] VITALS (7 sets, daily range): BP systolic 122–151; BP diastolic 59–69; PULSE 64–73; TEMP 36.5–36.9; O2SAT 92–98
[2016-12-29] MEDS: VANCOMYCIN INJ 1,000 MG in SODIUM CHLORIDE 0.9% 250ML 250 ML IV SCH ×2 (02:11→14:41)
[2016-12-29] MEDS: PIPERACILL/TAZOBAC IV 3.375 GM in DEXTROSE 5% 100ML IV SCH ×3 (02:12→17:51)
[2016-12-29] MEDS: SODIUM CHLORIDE 0.9% 1000ML 1,000 ML IV SCH (04:34)
[2016-12-29 07:58] LABS: CREATININE 0.93 mg/dl (0.60-1.40)
--- NOTE | 2016-12-29 08:03 | Orthopedic Progress Note ---
Orthopedic Progress Note Date of Service December 29, 2016. Subjective Additional Notes: NON VERBAL. APPEARS COMFORTABLE Objective calves soft nontender, N/V intact, toes mobile Date Time Temp Pulse Resp B/P Pulse Ox O2 Delivery O2 Flow Rate FiO2 12/29/16 04:00 Nasal Cannula 2.0 12/29/16 03:37 36.9 73 21 122/59 92 Nasal Cannula 2.0 12/29/16 00:16 36.7 68 20 127/63 96 Nasal Cannula 2.0 12/29/16 00:02 Nasal Cannula 2.0 12/28/16 20:00 Nasal Cannula 2.0 12/28/16 19:04 37.1 83 16 137/61 99 Nasal Cannula 2.0 12/28/16 15:55 97 Nasal Cannula 2.0 12/28/16 15:52 37.2 66 16 122/64 97 Nasal Cannula 2.0 12/28/16 11:46 99 Nasal Cannula 2.0 12/28/16 11:44 37.1 68 18 133/68 99 Nasal Cannula 2.0 Laboratory Results 24 Hours: Test 12/28/16 15:10 White Blood Count 6.76 K/uL Red Blood Count 2.83 M/uL Hemoglobin 8.4 g/dL Hematocrit 26.4 % Mean Corpuscular Volume 93.3 fL Mean Corpuscular Hemoglobin 29.7 pg Mean Corpuscular Hemoglobin Concent 31.8 g/dl Platelet Count 145 K/uL Mean Platelet Volume 8.9 fL Neutrophils (%) (Auto) 61.4 % Lymphocytes (%) (Auto) 26.8 % Monocytes (%) (Auto) 8.0 % Eosinophils (%) (Auto) 3.6 % Basophils (%) (Auto) 0.1 % Neutrophils # (Auto) 4.15 K/uL Lymphocytes # (Auto) 1.81 K/uL Monocytes # (Auto) 0.54 K/uL Eosinophils # (Auto) 0.24 K/uL Basophils # (Auto) 0.01 K/uL Assessment & Plan Assessment: R hip subcapital femoral neck fx Plan: Currently not cleared medically, has new infiltrates on CXR and has not been afebrile for 24 hours. Medically looking like friday or friday for OR. Plan bipolar once medically stable- DIRECT ANTERIOR WITH DR. FLAVIA TEE FOR SURGERY TOMORROW. CLEARANCE PENDING.
[2016-12-29] MEDS: METOPROLOL TARTRATE 25 MG TAB PO SCH ×2 (08:28→20:58)
[2016-12-29] MEDS: CHOLECALCIFEROL 1000 INTER.UNIT TAB PO SCH (08:29)
[2016-12-29] MEDS: FUROSEMIDE 20 MG TAB PO SCH (08:29)
[2016-12-29] MEDS: LISINOPRIL 5 MG TAB PO SCH (08:29)
--- NOTE | 2016-12-29 09:47 | Progress Note ---
Subjective Date of Service: December 29, 2016. Subjective Pt evaluation today including: physical exam, chart review, lab review, review of studies, review of inpatient medication list Pain: no pain reported Voiding: unger catheter in place Pt is seen and examined by me. Pt does not say much, but in any distress, lying comfortably in bed. Nurse does not report any events, okay to discontinue tele. Problem List Medical Problems: (1) Confusion Status: Acute (2) Elevated troponin Status: Acute (3) Sepsis Status: Acute (4) Urinary tract infection Status: Acute (5) Weakness Status: Acute Review of Systems unable to obtain secondary to dementia and AMS? Medications Medications (Trade) Dose Ordered Sig/Honorio Route Start Time Stop Time Status Last Admin Dose Admin Vancomycin HCl 1000 mg/Sodium Chloride 270 ml @ 125 mls/hr Q12H IV 12/29/16 02:00 01/08/17 01:59 12/29/16 02:11 125 MLS/HR Ampicillin Sodium 2000 mg/Sodium Chloride 100 ml @ 200 mls/hr Q4 IV 12/28/16 16:00 12/28/16 21:07 DC 12/28/16 19:55 200 MLS/HR Vancomycin HCl/ Sodium Chloride (Vancomycin Inj/ Nss 500ml) 538 ml @ 200 mls/hr 1300 ONCE IV 12/28/16 13:00 12/28/16 15:41 DC 12/28/16 13:23 200 MLS/HR Furosemide (Lasix Tab) 20 mg TODAY@1600 ONCE PO 12/28/16 16:00 12/28/16 16:01 DC 12/28/16 16:15 20 MG Furosemide (Lasix Tab) 20 mg QAM PO 12/29/16 09:00 01/28/17 08:59 12/29/16 08:29 20 MG Objective Vital Signs Date Time Temp Pulse Resp B/P Pulse Ox O2 Delivery O2 Flow Rate FiO2 12/29/16 08:48 36.5 67 18 98 2.0 12/29/16 08:17 36.5 67 18 151/69 98 Nasal Cannula 2.0 12/29/16 08:00 Nasal Cannula 2.0 12/29/16 04:00 Nasal Cannula 2.0 12/29/16 03:37 36.9 73 21 122/59 92 Nasal Cannula 2.0 12/29/16 00:16 36.7 68 20 127/63 96 Nasal Cannula 2.0 12/29/16 00:02 Nasal Cannula 2.0 12/28/16 20:00 Nasal Cannula 2.0 12/28/16 19:04 37.1 83 16 137/61 99 Nasal Cannula 2.0 12/28/16 15:55 97 Nasal Cannula 2.0 12/28/16 15:52 37.2 66 16 122/64 97 Nasal Cannula 2.0 12/28/16 11:46 99 Nasal Cannula 2.0 12/28/16 11:44 37.1 68 18 133/68 99 Nasal Cannula 2.0 Physical Exam General Appearance: no apparent distress Neck: supple Respiratory/Chest: no respiratory distress, no accessory muscle use, + rhonchi (scattered ronchi) Cardiovascular: regular rate, rhythm, no murmur Abdomen: normal bowel sounds, non tender, soft Extremities: + pedal edema (bilateral lower extremities) Skin: no rash Laboratory Results Last 24 Hours Test 12/28/16 15:10 12/29/16 07:10 White Blood Count 6.76 K/uL Red Blood Count 2.83 M/uL Hemoglobin 8.4 g/dL Hematocrit 26.4 % Mean Corpuscular Volume 93.3 fL Mean Corpuscular Hemoglobin 29.7 pg Mean Corpuscular Hemoglobin Concent 31.8 g/dl Platelet Count 145 K/uL Mean Platelet Volume 8.9 fL Neutrophils (%) (Auto) 61.4 % Lymphocytes (%) (Auto) 26.8 % Monocytes (%) (Auto) 8.0 % Eosinophils (%) (Auto) 3.6 % Basophils (%) (Auto) 0.1 % Neutrophils # (Auto) 4.15 K/uL Lymphocytes # (Auto) 1.81 K/uL Monocytes # (Auto) 0.54 K/uL Eosinophils # (Auto) 0.24 K/uL Basophils # (Auto) 0.01 K/uL RDW Standard Deviation 51.5 fL RDW Coefficient of Variation 15.0 % Immature Granulocyte % (Auto) 0.1 % Immature Granulocyte # (Auto) 0.01 K/uL Red Blood Cell Morphology Unremarkable Sodium Level 147 mmol/L Potassium Level 3.8 mmol/L Chloride Level 113 mmol/L Carbon Dioxide Level 30 mmol/L Anion Gap 4.0 mmol/L Blood Urea Nitrogen 21 mg/dl Creatinine 0.97 mg/dl 0.93 mg/dl Est Creatinine Clear Calc Drug Dose 58.4 ml/min 63.6 ml/min Estimated GFR () 82.2 86.5 Estimated GFR (Non- 70.9 74.6 BUN/Creatinine Ratio 21.3 Random Glucose 106 mg/dl Calcium Level 7.9 mg/dl Assessment and Plan 86 year old gentleman was brought to the hospital for evaluation for change in mental status from the base line and was found on the floor after a fall. While in the ED he was found to have a POC troponin of approx 5 and a UA concerning for a UTI so the patient was placed on tele and started on Rocephin. The troponin did trend down while the patient was in the hospital however the echo was reflective of a non stemi and patient was started on BB and lisinopril. Cardio was consulted and discussion was had about a potential catheterization and decision was made for medical management. He was also found to have pain of the right hip while undergoing PT. A right subcapital fracture was noted and ortho was consulted for repair. The night prior to repair the patient spiked a temperature and Zosyn was added as well as blood cultures and a chest x ray which was suspicious of a PNA vs possible sepsis and acute on chronic CHF with positive fluid balance, not medical cleared for go under hip surgery. Fever - secondary to PNA vs UTI vs sepsis - Procalcitonin is elevated, however WBC are trending downward, Blood cultures no growth so far. Afebrile past 24hours. - Cont Zosyn, Vancomycin and DC ampicillin per ID. - Initial blood culture negative to date and new cultures are pending - ID input appreciated. - CXR (12/25/16): Slight progression of the diffuse interstitial and vascular thickening. Stable blunting of the right lateral costophrenic sulcus. CXR (12/27/16) 1. pulmonary vascular congestion and small bilateral pleural effusions 2. focal interstitial opacities in the right upper lung zone, focal edema versus an infectious/inflammatory process CXR (12/28/16) Increased Hilar fullness with ari-bronchial cuffing and cephalization - Pulmonary Consult appreciated per pulmonary Pulmonary Opacification: This was seen on the CXR from 12/27/16 and not noted on 12/25/16 or 12/28/16 suggesting it is most likely pulmonary edema or infection. If patient is stabilized non- contrast CT of the Thorax can be performed in the future for a more definitive evaluation. Hypoxemia: improving, currently 98% on 2L NC. Most likely a combination of CHF and possible pna with the new CXR findings CHF: The patient is +4L positive on his intake since his arrival. Cont gentle diuresis with lasix 20mg po daily and decrease IVF to 50ml/hr. Elevated Troponin- NSTEMI - troponin has been down trending - Echo- * Left ventricular systolic function is normal. * Grade I diastolic dysfunction, (abnormal relaxation pattern). * There are regional wall motion abnormalities as specified. * There is moderate anterior wall hypokinesis. * Calcified mitral apparatus. * Right ventricular systolic pressure is elevated at 40-50mmHg. - ASA and plavix after surgery - Lisinopril 5 mg and Metoprolol 12.5 mg bid started Right subcapital hip fracture - As per ortho. - not clear per pulmonary, need to optimize the medical management. Poor urinary output secondary to dehydration - gentle hydration with IVF 50ml/hr - will continue to monitor I&O - BUN is improving, Cr is WNL Metabolic encephalopathy- patient is back to BL mental status as per - CT head negative and no focal findings on exam - Swallow study, PT/OT - Neurology consult pending Abnormal UA; concerning for UTI - Cont zosyn, and vanco Dementia/depression-- - will hold citalopram, donepezil, gabapentin, and Namenda and restart after surgery - will consult neurology as per pulmonary recommendation. DNR, palliative care consult pending. Continued [facility] stay due to: fever, abnormal vital signs, ambulation difficulties, multiple IV medications needed Discharge planning: uncertain
--- NOTE | 2016-12-29 12:32 | Neurology Consultation ---
Neurology Consultation Date of Consultation: December 29, 2016. Attending Physician: Peng Barboza M.D. Primary Care Physician: [facility] Reason for Consultation: Altered mental status History of Present Illness Source: patient, family, hospital records This is an 86-year-old male who initially presented with a change in mental status and a fall. He was noted to have elevated troponins and was diagnosed with the non-ST elevation LA. Also noted to have UTI on UA. With physical therapy he was complaining of right hip pain and was also found to have a subcapital fracture on the right. Later on he also spiked a fever and there is a chest x-ray suspicious for pneumonia and acute on chronic CHF. 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 Daughter reports that he has been on medications for the last year. She is not aware of him following with any neurologist at this time. His [place] [facility] [place] [facility]. She reports at baseline he is typically pleasantly confused but is able to recognize her. She reports since he's been in the hospital he is only been able to recognize her once. No overt hallucinations. She reports that at baseline he is difficult to understand and has low voice volume. She reports that he is fairly close to his baseline but appears to be more lethargic and tired and is speaking less in the hospital. Daughter also noticed asymmetric pupils in the hospital. She has never noticed it before and reports that her [id number] also has never noted asymmetric pupils. No other neurological symptoms noted. Patient does have a significant history for stroke in 1998 in the left parietal area. Patient had been seen by Dr. Mejia in 2013 for postop delirium. Patient has had bilateral endarterectomies for carotid artery disease. CT of the head done earlier this admission was unremarkable for any acute changes. Labs: CBC and complete metabolic panel and magnesium noted. TSH within normal limits at 0.86. B12 level last year was noted to be 245. Past Medical/Surgical History Medical Problems: (1) Confusion Status: Acute (2) Elevated troponin Status: Acute (3) Sepsis Status: Acute (4) Urinary tract infection Status: Acute (5) Weakness Status: Acute Mixed Alzheimer's and vascular type dementia Dyslipidemia Depression History of stroke in 1998 in the left parietal area Bilateral carotid artery disease status post endarterectomy Possible neuropathy Family History No significant family history Social History Patient is currently living at [facility]. He is normally wheelchair-bound. At mental baseline is normally able to converse and recognize family members. Remote tobacco use but no recent tobacco use. No alcohol use. Smokeless Tobacco Use: No Alcohol Use: none Drug Use: none Marital Status: Housing Status: lives with family Occupation Status: retired Allergies Coded Allergies: Simvastatin (Unverified Adverse Reaction, Mild, muscle pain, 11/12/15) Current Inpatient Medications Current Inpatient Medications Medications (Trade) Dose Ordered Sig/Honorio Route Start Time Stop Time Status Last Admin Dose Admin Enoxaparin Sodium (Lovenox Inj) 30 mg DAILY@2000 SC 12/25/16 22:00 01/24/17 21:59 Future Hold 12/26/16 21:11 30 MG Ondansetron HCl (Zofran Inj) 4 mg Q6H PRN IV 12/25/16 20:45 01/24/17 20:44 Bisacodyl (Dulcolax Supp) 10 mg DAILY PRN MI 12/25/16 20:45 01/24/17 20:44 Acetaminophen (Tylenol Tab) 650 mg Q4H PRN PO 12/26/16 13:45 01/25/17 13:44 12/26/16 14:35 650 MG Lisinopril (Zestril Tab) 5 mg QAM PO 12/27/16 09:00 01/26/17 08:59 12/29/16 08:29 5 MG Metoprolol Tartrate 12.5 mg 12.5 mg BID PO 12/26/16 21:00 01/25/17 20:59 12/29/16 08:28 12.5 MG Acetaminophen/ Empty Bag (Ofirmev Iv/ Empty Iv Bag 100ml) 65 ml @ 260 mls/hr Q6H PRN IV 12/27/16 05:15 01/26/17 05:14 12/28/16 06:01 260 MLS/HR Piperacillin Sod/ Tazobactam Sod (Consult) 1 ea UD PRN N/A 12/27/16 05:45 01/26/17 05:44 Pravastatin Sodium 40 mg 40 mg QPM PO 12/27/16 21:00 01/26/17 20:59 12/28/16 21:10 40 MG Piperacillin Sod/ Tazobactam Sod/ Dextrose (Zosyn Iv/D5 100ml) 115 ml @ 28.75 mls/ hr Q8H IV 12/27/16 10:00 01/03/17 09:59 12/29/16 09:49 28.75 MLS/HR Ergocalciferol (Vitamin D Cap) 50,000 interunit Fr@0900 PO 12/27/16 09:00 01/26/17 08:59 12/27/16 14:19 50,000 INTERUNIT Cholecalciferol 2000 inter.unit 2,000 inter.unit QAM PO 12/28/16 09:00 01/27/17 08:59 12/29/16 08:29 2,000 INTER.UNIT Vancomycin HCl/ Sodium Chloride (Vancomycin Inj/ Nss 250ml) 270 ml @ 125 mls/hr Q12H IV 12/29/16 02:00 01/08/17 01:59 12/29/16 02:11 125 MLS/HR Vancomycin HCl (Consult) 1 ea UD PRN N/A 12/28/16 13:00 01/27/17 12:59 Furosemide (Lasix Tab) 20 mg QAM PO 12/29/16 09:00 01/28/17 08:59 12/29/16 08:29 20 MG Review of Systems Complete review of systems otherwise negative except for the above noted in history of present illness. Review of systems is limited by patient's mental status Physical Exam Vital Signs (Past 24 Hrs): Date Time Temp Pulse Resp B/P Pulse Ox O2 Delivery O2 Flow Rate FiO2 12/29/16 10:30 Nasal Cannula 2.0 12/29/16 08:48 36.5 67 18 98 2.0 12/29/16 08:17 36.5 67 18 151/69 98 Nasal Cannula 2.0 12/29/16 08:00 Nasal Cannula 2.0 12/29/16 04:00 Nasal Cannula 2.0 12/29/16 03:37 36.9 73 21 122/59 92 Nasal Cannula 2.0 12/29/16 00:16 36.7 68 20 127/63 96 Nasal Cannula 2.0 12/29/16 00:02 Nasal Cannula 2.0 12/28/16 20:00 Nasal Cannula 2.0 12/28/16 19:04 37.1 83 16 137/61 99 Nasal Cannula 2.0 12/28/16 15:55 97 Nasal Cannula 2.0 12/28/16 15:52 37.2 66 16 122/64 97 Nasal Cannula 2.0 Gen.: Patient is lethargic and difficult to arouse. No acute distress lying in bed. HEENT: Normocephalic /atraumatic, no scleral icterus Heart: Regular rate and rhythm Extremities: No gross deformities or rashes noted. Right leg in traction Neurological examination: Mental status: Patient is lethargic. Difficult to arouse. Will follow a few simple verbal commands correctly. Not oriented to person, place or time at this time. No active hallucinations. Speech is minimal and low volume. No overt dysarthria or aphasia noted. Cranial nerve: Funduscopic examination was unremarkable not well visualized. Not able to accurately gauge visual angel secondary to mental status. Pupils are asymmetric with right pupil +3 and left pupil +1. Right pupil is also slightly asymmetric likely due to past cataract surgery. Patient is able to look left and right but formal extraocular muscle testing was difficult secondary to mental status. No facial asymmetry noted with spontaneous movements. Facial sensation seems intact but limited by mental status. Patient did not stick out his tongue for me. Hearing grossly intact to voice. Strength: Patient had good web development consultant strength bilaterally but appeared to give more effort on the right compared to the left. Patient also seemed to be able to better wiggle his toes on the right compared to the left. Not clear whether this is true weakness or secondary to mental status. Patient did not attempt to move his extremities antigravity and would not give good resistance to formal strength testing. Sensation: Grossly intact to light touch in all extremities but limited by mental status. Deep tendon reflexes: +1 in bilateral biceps, brachioradialis and patellar. Toes were downgoing to plantar stimulation Coordination: Patient did not participate in formal coordination testing would not reach out to grab my hand. Station within the bed was normal Laboratory Results Past 24 Hours: 12/28/16 15:10 Red Blood Count 2.83, Mean Corpuscular Volume 93.3, Mean Corpuscular Hemoglobin 29.7, Mean Corpuscular Hemoglobin Concent 31.8, Mean Platelet Volume 8.9, Neutrophils (%) (Auto) 61.4, Lymphocytes (%) (Auto) 26.8, Monocytes (%) (Auto) 8.0, Eosinophils (%) (Auto) 3.6, Basophils (%) (Auto) 0.1, Neutrophils # (Auto) 4.15, Lymphocytes # (Auto) 1.81, Monocytes # (Auto) 0.54, Eosinophils # (Auto) 0.24, Basophils # (Auto) 0.01 12/28/16 15:10 12/29/16 07:10 Test 12/28/16 15:10 12/29/16 07:10 12/29/16 11:37 12/29/16 11:39 White Blood Count 6.76 K/uL (4.8-10.8) Red Blood Count 2.83 M/uL (4.7-6.1) Hemoglobin 8.4 g/dL (14.0-18.0) Hematocrit 26.4 % (42-52) Mean Corpuscular Volume 93.3 fL (80-100) Mean Corpuscular Hemoglobin 29.7 pg (25-34) Mean Corpuscular Hemoglobin Concent 31.8 g/dl (32-36) Platelet Count 145 K/uL (130-400) Mean Platelet Volume 8.9 fL (7.4-10.4) Neutrophils (%) (Auto) 61.4 % Lymphocytes (%) (Auto) 26.8 % Monocytes (%) (Auto) 8.0 % Eosinophils (%) (Auto) 3.6 % Basophils (%) (Auto) 0.1 % Neutrophils # (Auto) 4.15 K/uL (1.4-6.5) Lymphocytes # (Auto) 1.81 K/uL (1.2-3.4) Monocytes # (Auto) 0.54 K/uL (0.11-0.59) Eosinophils # (Auto) 0.24 K/uL (0-0.5) Basophils # (Auto) 0.01 K/uL (0-0.2) RDW Standard Deviation 51.5 fL (36.4-46.3) RDW Coefficient of Variation 15.0 % (11.5-14.5) Immature Granulocyte % (Auto) 0.1 % Immature Granulocyte # (Auto) 0.01 K/uL (0.00-0.02) Red Blood Cell Morphology Unremarkable Anion Gap 4.0 mmol/L (3-11) BUN/Creatinine Ratio 21.3 (10-20) Calcium Level 7.9 mg/dl (8.5-10.1) Est Creatinine Clear Calc Drug Dose 63.6 ml/min Estimated GFR () 86.5 Estimated GFR (Non- 74.6 Date/Time Source Procedure Growth Status 12/28/16 13:27 Nasal MRSA DNA Surveillance Screen - Final Specimen Negative for MRSA by DNA Probe Complete Imaging As noted above in history of present illness Impression This is a 86-year-old male who presented with change in mental status, known a sliding moderate to advance mixed Alzheimer's and vascular dementia, fall with right subcapital fracture, non-ST elevation LA, UTI, possible pneumonia with acute on chronic CHF, and asymmetric pupils of unknown timeframe which the family reports is new. Certainly patient could have worsening acute encephalopathy secondary to baseline dementia in the setting of multiple medical problems both metabolic and infectious. Concerning factors for possible stroke include change in mental status with a fall and family reporting new asymmetric pupils that they have not noticed before. Asymmetric pupils could also be secondary to past cataract surgery on the right. No reports of rapid fluctuations concerning for seizures. Plan I am ordering a MRI of the brain to rule out acute or subacute stroke. In addition I am ordering an ultrasound of the carotids to rule out carotid dissection in the setting of reportedly new asymmetric pupils to rule out carotid dissection I've ordered a B12 level, phos, and ammonia level to rule out secondary causes for encephalopathy. Recommend B12 levels above 400. Resume dementia medications (Aricept and Namenda) and home antiplatelets as soon as medically safe to do so. Thank you for allowing me to participate in this patient's care. If there is any questions or concerns, feel free to call/page me.
--- NOTE | 2016-12-29 14:45 | DIAGNOSTIC IMAGING REPORT ---
BILATERAL CAROTID DOPPLER STUDY HISTORY: asymmetric pupils rule out dissection COMPARISON: None. TECHNIQUE: Real-time, grayscale, and color Doppler sonography of the carotid arteries was performed. Imaging reviewed in the transverse and longitudinal planes. All measurements were calculated based on NASCET criteria. FINDINGS: Antegrade flow is seen in the bilateral vertebral arteries. The brachial pressures are hemodynamically similar. No evidence for carotid dissection. The peak systolic velocity within the right ICA is 100 cm/s. The right systolic ratio is 1.2. The peak systolic velocity within the left ICA is 112 cm/s. The left systolic ratio is 1.0. IMPRESSION: No hemodynamically significant stenosis seen within the carotid arteries. No evidence for carotid dissection. Electronically signed by: Ezequiel Tolbert M.D. 12/29/2016 2:44 PM Dictated Date/Time: 12/29/2016 2:42 PM
[2016-12-29] MEDS: PRAVASTATIN SOD 40 MG TAB PO SCH (20:58)
[2016-12-30] MEDS: PIPERACILL/TAZOBAC IV 3.375 GM in DEXTROSE 5% 100ML IV SCH ×2 (02:05→09:36)
[2016-12-30] MEDS: VANCOMYCIN INJ 1,000 MG in SODIUM CHLORIDE 0.9% 250ML 250 ML IV SCH (02:05)
[2016-12-30 06:10] LABS: CREATININE 1.1 mg/dl (0.60-1.40)
[2016-12-30 06:49] VITALS: BP 151/75; PULSE 69; TEMP 36.8; O2SAT 97
[2016-12-30] MEDS ORDERED: BUPIVACAINE 0.5 % 5 MG/1 ML PF 10ML VIAL ONE (07:23)
[2016-12-30] MEDS: CHOLECALCIFEROL 1000 INTER.UNIT TAB PO SCH (08:39)
[2016-12-30 08:41] VITALS: BP 135/72; PULSE 70
[2016-12-30] MEDS: FUROSEMIDE 20 MG TAB PO SCH (08:42)
[2016-12-30] MEDS: LISINOPRIL 5 MG TAB PO SCH (08:43)
[2016-12-30] MEDS: METOPROLOL TARTRATE 25 MG TAB PO SCH ×2 (08:43→21:44)
--- NOTE | 2016-12-30 10:43 | Infectious Disease Progress Nt ---
Progress Note Date of Service December 30, 2016. Subjective Pt evaluation today including: conversation w/ patient, conversation w/ family , physical exam, chart review, lab review, review of studies, conversation w/ strategic solutions consultant, review of inpatient medication list More awake and alert today. Smiles when questioned. Hemodynamically stable overnight. Remains afebrile. Blood cultures remain negative. Urine with alpha strep. All Other Systems: Reviewed and Negative Medications Current Inpatient Medications Medications (Trade) Dose Ordered Sig/Honorio Route Start Time Stop Time Status Last Admin Dose Admin Enoxaparin Sodium (Lovenox Inj) 30 mg DAILY@2000 SC 12/25/16 22:00 01/24/17 21:59 Future Hold 12/26/16 21:11 30 MG Ondansetron HCl (Zofran Inj) 4 mg Q6H PRN IV 12/25/16 20:45 01/24/17 20:44 Bisacodyl (Dulcolax Supp) [address] 12/25/16 20:45 01/24/17 20:44 Acetaminophen (Tylenol Tab) 650 mg Q4H PRN PO 12/26/16 13:45 01/25/17 13:44 12/26/16 14:35 650 MG Lisinopril (Zestril Tab) 5 mg QAM PO 12/27/16 09:00 01/26/17 08:59 12/30/16 08:43 5 MG Metoprolol Tartrate 12.5 mg 12.5 mg BID PO 12/26/16 21:00 01/25/17 20:59 12/30/16 08:43 12.5 MG Acetaminophen/ Empty Bag (Ofirmev Iv/ Empty Iv Bag 100ml) 65 ml @ 260 mls/hr Q6H PRN IV 12/27/16 05:15 01/26/17 05:14 12/28/16 06:01 260 MLS/HR Piperacillin Sod/ Tazobactam Sod (Consult) 1 ea UD PRN N/A 12/27/16 05:45 01/26/17 05:44 Pravastatin Sodium 40 mg 40 mg QPM PO 12/27/16 21:00 01/26/17 20:59 12/29/16 20:58 40 MG Piperacillin Sod/ Tazobactam Sod/ Dextrose (Zosyn Iv/D5 100ml) 115 ml @ 28.75 mls/ hr Q8H IV 12/27/16 10:00 01/03/17 09:59 12/30/16 09:36 28.75 MLS/HR Ergocalciferol (Vitamin D Cap) 50,000 interunit Fr@0900 PO 12/27/16 09:00 01/26/17 08:59 12/27/16 14:19 50,000 INTERUNIT Cholecalciferol 2000 inter.unit 2,000 inter.unit QAM PO 12/28/16 09:00 01/27/17 08:59 12/30/16 08:39 2,000 INTER.UNIT Vancomycin HCl/ Sodium Chloride (Vancomycin Inj/ Nss 250ml) 270 ml @ 125 mls/hr Q12H IV 12/29/16 02:00 01/08/17 01:59 12/30/16 02:05 125 MLS/HR Vancomycin HCl (Consult) 1 ea UD PRN N/A 12/28/16 13:00 01/27/17 12:59 Furosemide (Lasix Tab) 20 mg QAM PO 12/29/16 09:00 01/28/17 08:59 12/30/16 08:42 20 MG Objective Vital Signs Date Time Temp Pulse Resp B/P Pulse Ox O2 Delivery O2 Flow Rate FiO2 12/30/16 08:41 70 135/72 12/30/16 07:20 Nasal Cannula 2.0 12/30/16 06:49 36.8 69 14 151/75 97 Nasal Cannula 2.0 12/29/16 23:25 Nasal Cannula 2.0 12/29/16 23:14 36.8 64 22 127/65 95 Nasal Cannula 2.0 12/29/16 20:54 69 127/63 12/29/16 16:00 Nasal Cannula 2.0 12/29/16 15:05 36.8 65 16 129/69 97 Nasal Cannula 2.0 Physical Exam General Appearance: WD/WN, no apparent distress Eyes: normal inspection, PERRL, sclerae normal ENT: normal ENT inspection, pharynx normal Neck: supple, no adenopathy, trachea midline Respiratory/Chest: chest non-tender, lungs clear, normal breath sounds, no respiratory distress Cardiovascular: regular rate, rhythm, no gallop, no murmur Abdomen: normal bowel sounds, non tender, soft, no organomegaly Extremities: non-tender, no calf tenderness Neurologic/Psychiatric: alert, + disoriented Skin: normal color, warm/dry, no rash Lymphatic: no adenopathy Laboratory Results RUN DATE: 12/27/16 [facility] LAB PAGE 1 RUN TIME: 1200 Specimen Inquiry PATIENT: Kasie HIGGINS LOC: [facility] U # : [id number] AGE/SX: 86/M ROOM: E212 REG : 12/25/[address]: Peng Barboza M.D : 1930 BED: 1 DIS : STATUS: ADM IN TLOC: SPEC #: [id number] ALECIA: 12/25/16 STATUS: COMP REQ #: [id number] RECD: 12/25/[address]: Kalyan Castañeda M.D. SOURCE: URINE CATH ENTR: 12/25/[address]: Rowan, [place] SPDESC: ORDERED: CULTURE UR CATH COMMENTS: Comments to Rotary Filter Operator SAME TIME DIFFERENT SITES Has Specimen Been Obtained/Collected? Y Procedure Result Verified Site URINE CULTURE Final 12/27/16-1200 Organism 1 ALPHA STREP. NOT ENTEROCOCCUS COLONY COUNT >100,000 CFU/ml SENS NO SENSITIVITY TO FOLLOW Last 24 Hours Test 12/29/16 12:07 12/30/16 05:13 Phosphorus Level 3.3 mg/dl Ammonia 13.0 umol/L Vitamin B12 Level 218 pg/mL Creatinine 1.10 mg/dl Est Creatinine Clear Calc Drug Dose 53.8 ml/min Estimated GFR () 70.6 Estimated GFR (Non- 60.9 [~ rep ct add3]] BILATERAL CAROTID DOPPLER STUDY HISTORY: asymmetric pupils rule out dissection COMPARISON: None. TECHNIQUE: Real-time, grayscale, and color Doppler sonography of the carotid arteries was performed. Imaging reviewed in the transverse and longitudinal planes. All measurements were calculated based on NASCET criteria. FINDINGS: Antegrade flow is seen in the bilateral vertebral arteries. The brachial pressures are hemodynamically similar. No evidence for carotid dissection. The peak systolic velocity within the right ICA is 100 cm/s. The right systolic ratio is 1.2. The peak systolic velocity within the left ICA is 112 cm/s. The left systolic ratio is 1.0. IMPRESSION: No hemodynamically significant stenosis seen within the carotid arteries. No evidence for carotid dissection. Electronically signed by: Ezequiel Tolbert M.D. 12/29/2016 2:44 PM Dictated Date/Time: 12/29/2016 2:42 PM The status of this report is Signed. Draft = Not yet reviewed or appr Assessment and Plan 86-year-old male with dementia, now with hip fracture, non STEMI, with possible urinary tract infection with culture positive for streptococcal species. Chest x-ray appears more consistent with failure rather than pulmonary infection. Given negative blood cultures, I have transitioned patient to oral Augmentin 875 mg bid, and would complete 10 days Rx.
--- NOTE | 2016-12-30 11:32 | Palliative Care Consultation ---
Consultation Date of Consultation: December 30, 2016. Requesting Physician: Dr. Robyn Mendenhall Attending Physician: Dr. Gillespie, Marj Redman PA-C Reason for Consultation: Goals of care History of Present Illness This 86 year old male patient presented to the ED five days ago from [facility] with c/o altered mental status. He has a history of advanced dementia/ Alzheimer's, Parkinson's disease, ambulatory dysfunction at the custodial, allergic rhinitis, neuropathy, PUD, cataracts, depression and CVA in 1998. History obtained from and record. Apparently he had an unwitnessed fall a day or two TRAVEL REGISTERED NURSE PACU with no obvious injury at the time, and his mental status progressively worsened to the point of being nonverbal and almost obtunded. In the ED his UA was suspicious for UTI, CXR showed congestive changes, BNP elevated, troponin elevated, and the day after admission an X-ray showed a right hip fracture. Cardiology consulted who is providing conservative medical management for NSTEMI as the family made the choice to defer any invasive workup or procedures. Echocardiogram showed EF of 50-55%, moderate anterior wall hypokinesis, and significant mitral valve regurgitation (other findings listed in report). Pulmonology consulted for pre-op evaluation from a respiratory standpoint as patient was found to be 89% on room air TRAVEL REGISTERED NURSE PACU, repeat CXR here was suspicious for pneumonia. Pulm suggested holding off on surgery until patient medically stable. Patient has been febrile as well, two sets of blood cultures negative for any growth. Urine C/S reincubating after pinpoint growth. Patient is receiving IV vanco and zosyn. Neurology consulted yesterday as again patient's mental status worsening and there concern for CVA. MRI ordered for today. Given patient's advanced disease, multiple comorbidities and surgical risk, palliative care consulted to establish goals of care. I met with the patient and his , Ainsley, in room 386-2 this morning. Patient is awake and alert in the bed. His states, "Much better today," when asked how he is. Patient is able to say a few words but is disoriented with his advanced dementia. provided history and conversation about goals of care as patient unable to comprehend. Ainsley states that the patient is essentially at baseline right now. He was already unable to feed himself or ambulate, and has severe dementia at the custodial. He was really only able to transfer with assistance to and from bed/wheelchair. She believes that his dementia/Alzheimer's is approaching end-stage and stated, "He wasn't doing well at the custodial." Ainsley was questioning whether or not there was "any point " in doing the MRI since he is at baseline and she and the family are leaning more towards comfort measures only and pursuing hospice care at [facility]. I fully explained hospice and the service provided. Ainsley stated, "I know he wouldn't want to live this way, he's already said it to me at the custodial. " Patient's living will is on the chart, naming Ainsley as POA and stating that in end-stage condition patient wants comfort measures only. Family is coming in later, is to call me with either a decision on surgery/hospice or a request for family meeting. Past Medical/Surgical History Medical History: as above Surgical History: Cataract surgery Bilateral carotid endarterectomies Social History Smoking Status: Never Smoker History of Alcohol Use: No Drug Use: none Marital Status: Housing Status: lives with family Occupation Status: retired Review of Systems Constitutional: + weakness Eyes: + worsening of vision (right eye, per ) Respiratory: No cough, No dyspnea on exertion, No shortness of breath Cardiac: No chest pain, No edema Abdomen: No nausea, No pain, No vomiting Male : No problem reported (Has Mayen catheter) Neurologic: + memory loss Psychiatric: No anxiety Allergies Coded Allergies: Simvastatin (Unverified Adverse Reaction, Mild, muscle pain, 11/12/15) Medications Current Inpatient Medications Medications (Trade) Dose Ordered Sig/Honorio Route Start Time Stop Time Status Last Admin Dose Admin Enoxaparin Sodium (Lovenox Inj) 30 mg DAILY@1999 SC 12/25/16 22:00 01/24/17 21:59 Future Hold 12/26/16 21:11 30 MG Ondansetron HCl (Zofran Inj) 4 mg Q6H PRN IV 12/25/16 20:45 01/24/17 20:44 Bisacodyl (Dulcolax Supp) 10 mg DAILY PRN NM 12/25/16 20:45 01/24/17 20:44 Acetaminophen (Tylenol Tab) 650 mg Q4H PRN PO 12/26/16 13:45 01/25/17 13:44 12/26/16 14:35 650 MG Lisinopril (Zestril Tab) 5 mg QAM PO 12/27/16 09:00 01/26/17 08:59 12/30/16 08:43 5 MG Metoprolol Tartrate 12.5 mg 12.5 mg BID PO 12/26/16 21:00 01/25/17 20:59 12/30/16 08:43 12.5 MG Acetaminophen/ Empty Bag (Ofirmev Iv/ Empty Iv Bag 100ml) 65 ml @ 260 mls/hr Q6H PRN IV 12/27/16 05:15 01/26/17 05:14 12/28/16 06:01 260 MLS/HR Piperacillin Sod/ Tazobactam Sod (Consult) 1 ea UD PRN N/A 12/27/16 05:45 01/26/17 05:44 Pravastatin Sodium 40 mg 40 mg QPM PO 12/27/16 21:00 01/26/17 20:59 12/29/16 20:58 40 MG Piperacillin Sod/ Tazobactam Sod/ Dextrose (Zosyn Iv/D5 100ml) 115 ml @ 28.75 mls/ hr Q8H IV 12/27/16 10:00 01/03/17 09:59 12/30/16 09:36 28.75 MLS/HR Ergocalciferol (Vitamin D Cap) 50,000 interunit Fr@0900 PO 12/27/16 09:00 01/26/17 08:59 12/27/16 14:19 50,000 INTERUNIT Cholecalciferol 2000 inter.unit 2,000 inter.unit QAM PO 12/28/16 09:00 01/27/17 08:59 12/30/16 08:39 2,000 INTER.UNIT Vancomycin HCl/ Sodium Chloride (Vancomycin Inj/ Nss 250ml) 270 ml @ 125 mls/hr Q12H IV 12/29/16 02:00 01/08/17 01:59 12/30/16 02:05 125 MLS/HR Vancomycin HCl (Consult) 1 ea UD PRN N/A 12/28/16 13:00 01/27/17 12:59 Furosemide (Lasix Tab) 20 mg QAM PO 12/29/16 09:00 01/28/17 08:59 12/30/16 08:42 20 MG Physical Exam Date Time Temp Pulse Resp B/P Pulse Ox O2 Delivery O2 Flow Rate FiO2 12/30/16 08:41 70 135/72 12/30/16 07:20 Nasal Cannula 2.0 12/30/16 06:49 36.8 69 14 151/75 97 Nasal Cannula 2.0 12/29/16 23:25 Nasal Cannula 2.0 12/29/16 23:14 36.8 64 22 127/65 95 Nasal Cannula 2.0 12/29/16 20:54 69 127/63 12/29/16 16:00 Nasal Cannula 2.0 12/29/16 15:05 36.8 65 16 129/69 97 Nasal Cannula 2.0 12/29/16 10:30 Nasal Cannula 2.0 General Appearance: + thin ENT: hearing grossly normal Neck: supple, no JVD Respiratory: no respiratory distress, no accessory muscle use, + decreased breath sounds (bilateral bases), + pertinent finding (2LNC) Cardiovascular: regular rate, rhythm, + normal peripheral pulses, + pertinent finding (trace edema to anles) Abdomen: normal bowel sounds, non tender, soft Musculoskeletal: pertinent finding (right leg in bucks traction) Neurologic/Psychiatric: alert, + disoriented Laboratory Results Last 24 Hours Test 12/29/16 12:07 12/30/16 05:13 Phosphorus Level 3.3 mg/dl Ammonia 13.0 umol/L Vitamin B12 Level 218 pg/mL Creatinine 1.10 mg/dl Est Creatinine Clear Calc Drug Dose 53.8 ml/min Estimated GFR () 70.6 Estimated GFR (Non- 60.9 Assessment & Plan Palliative Performance Scale: 30 % (bed bound, total care, altered mental status, decreased nutritional intake) Problem list: Altered mental status Alzheimer's/dementia, end-stage Ambulatory dysfunction Pain with movement, right hip Fall- right hip fracture Dehydration/UTI Elevated troponin/NSTEMI ?Pneumonia CHF with congestive change on x-ray, elevated BNP Goals of care (Z51.5) Palliative care plan: discussed with /POA Ainsley, Mraj Redman PA-C, and Dr. Gillespie. -Recommend to hold off on MRI until patient's and family can discuss goals of care. Ainsley is going to call me when family is here. -Patient denies any pain. Nursing staff reports that patient doesn't complain much of pain even when being moved. -Uncertain of whether or not patient will undergo surgical repair of right hip fracture. seems to be leaning more toward comfort measures only/hospice care at [facility]. In my opinion, given that his activity level was already minimal and he is current not in a great deal of pain, I do not see a significant benefit from a quality of life standpoint to be gained from surgery. -Patient is 7c on FAST scale- qualifies for hospice; especially with unrepaired hip fracture. -Living will on chart which states no heroic measures when end-stage. Is a DNR/ DNI per previous discussion. Thank you kindly for this consult. I will follow.
--- NOTE | 2016-12-30 12:55 | Hospitalist Progress Note ---
Hospitalist Progress Note Date of Service December 30, 2016. Subjective Pt evaluation today including: conversation w/ patient, physical exam, chart review, lab review, review of studies, conversation w/ wireless consultant, review of inpatient medication list History is limited. The patient is able to tell me he is not having any pain. he denies any nausea. Additional Comments: Unable to obtain secondary to patient's mental state Objective Vital Signs Date Time Temp Pulse Resp B/P Pulse Ox O2 Delivery O2 Flow Rate FiO2 12/30/16 08:41 70 135/72 12/30/16 07:20 Nasal Cannula 2.0 12/30/16 06:49 36.8 69 14 151/75 97 Nasal Cannula 2.0 12/29/16 23:25 Nasal Cannula 2.0 12/29/16 23:14 36.8 64 22 127/65 95 Nasal Cannula 2.0 12/29/16 20:54 69 127/63 12/29/16 16:00 Nasal Cannula 2.0 12/29/16 15:05 36.8 65 16 129/69 97 Nasal Cannula 2.0 Physical Exam General Appearance: no apparent distress (resting comfortably in bed) Neck: no JVD Respiratory/Chest: lungs clear Cardiovascular: regular rate, rhythm Abdomen: normal bowel sounds, non tender, soft Extremities: no pedal edema Neurologic/Psychiatric: alert (responds yes or no to basic questions. Does not follow commands.) Skin: warm/dry Laboratory Results Last 24 Hours Test 12/30/16 05:13 Creatinine 1.10 mg/dl Est Creatinine Clear Calc Drug Dose 53.8 ml/min Estimated GFR () 70.6 Estimated GFR (Non- 60.9 Assessment and Plan 86 year old gentleman was brought to the hospital for evaluation for change in mental status from the base line and was found on the floor after a fall. While in the ED he was found to have a POC troponin of approx 5 and a UA concerning for a UTI so the patient was placed on tele and started on Rocephin. The troponin did trend down while the patient was in the hospital however the echo was reflective of a non stemi and patient was started on BB and lisinopril. Cardio was consulted and discussion was had about a potential catheterization and decision was made for medical management. He was also found to have pain of the right hip while undergoing PT. A right subcapital fracture was noted and ortho was consulted for repair. The night prior to repair the patient spiked a temperature and Zosyn was added as well as blood cultures and a chest x ray which was suspicious of a PNA vs possible sepsis and acute on chronic CHF with positive fluid balance, not medical cleared for go under hip surgery. Fever-likely secondary to UTI -repeat blood cx neg -urine cx alpha strep -ID following-->d/c vanc and zosyn. Begin Augmentin for a total of 10 days Acute respiratory failure with Hypoxemia: improving CHF -Continue Lasix 20 mg po daily Elevated Troponin- NSTEMI - troponin has been down trending - Echo- * Left ventricular systolic function is normal. * Grade I diastolic dysfunction, (abnormal relaxation pattern). * There are regional wall motion abnormalities as specified. * There is moderate anterior wall hypokinesis. * Calcified mitral apparatus. * Right ventricular systolic pressure is elevated at 40-50mmHg. - Lisinopril 5 mg and Metoprolol 12.5 mg bid started -Consider also adding an ASA 81 mg daily Right subcapital hip fracture -treating conservatively (family talking about hospice) Metabolic encephalopathy likely secondary to UTI-pt is apparently back to baseline Dementia/depression- -continue to hold citalopram, donepezil, gabapentin, and Namenda -neurology consult appreciated. MRI today to r/o CVA was ordered, however pt's family now wants conservative treatment. Do not want further testing DISPO -likely d/c with hospice--? to [facility] vs home CODE STATUS -LEVEL V DO NO RESUSCITATE
[2016-12-30] MEDS ORDERED: VANCOMYCIN TROUGH SCH (13:30)
[2016-12-30 15:01] VITALS: BP 131/64; PULSE 61; TEMP 36.9; O2SAT 97
--- NOTE | 2016-12-30 16:39 | Pulmonology Progress Note ---
Pulmonary Progress Note Date of Service December 30, 2016. Attending Dr Coronado Subjective Unable to achieve ROS secondary to acute and chronic illness Objective 86-yo male admitted to [facility] through the ED from [facility] s/p unwitnessed fall with h/o fevers and AMS. PMHx includes: advanced dementia, carotic artery stenosis s/p bilateral endarterectomy, DLD, h/o CVA 1998 - left occipital infarct, RBBB, PUD. 12/25/16 was transported to [facility] ED from [facility] following unwitnessed fall with subsequent pain, fever and altered mental status. In the ER CXR noted subtle congestive changes as well as diffuse interstitial and vascular thickening. WBC: 12.3, UA + alpha strep non-enterococcus. ProBNP: 4820. + Pct ( down trending) + troponin leak (5 - trended down). He was admitted to telemetry. Treated with lois hydration, Vancomycin and pip-tazo (#6). Echocardiogram 12/26: Grade I diastolic dysfunction, RVSP: 40-55mmHg and moderate anterior wall hypokinesis. Cardiology managing medically. Orthopaedics evaluated for right hip subcapital femoral neck fracture however patient not felt medically stable for surgical intervention. CXR : increased prominence of pulmonary vasculature with trace bilateral pleural effusion. Today: - O2: 95-97% - 2LPM NC - Afebrile, HD Stable - Cr: 1.1 - Transitioned to Augmentin PO per ID reccs - Palliative Care consulted - goals of care discussion Physical Exam: Constitutional: Well developed elderly male lying in hospital bed. No acute distress. Head: + facial symmetry Eyes: EOMi, pale conjunctiva without injection Mouth: Moist mucous membranes. Cannot visualize posterior pharynx well. Neck: Trachea midline. No adenopathy or masses Respiratory: Non-labored respirations. BS diminished anterior bases. NO cough. NO wheeze, rales or rhonchi. Cardiovascular: RRR, no MRG +2 radial pulses. <1s capillary refill. Abdomen: soft, protuberant, active bowel sounds Integumentary: no rashes or ecchymosis MSK/Extremities: Right LE in traction. Left + SCD - no peripheral edema No erythema or calf tenderness. Neurologic: Alert, opens eyes to voice. Follows commands for deep breaths. Assessment & Plan 86-yo male with advanced dementia admitted s/p fall sustaining right hip fracture in the setting of UTI, NSTEMI and ? pneumonia vs pulmonary edema 1. Agree with palliative care consult and goals of care 2. I/Os, daily weights 3. Agree with ID - complete 10-day Augmentin 4. Attempt frequent positional changes as able by orthopaedics with percussive therapy for respiratory augmentation and attempt for bedside spirometry if he will participate Patient and plan reviewed and agreed with. Data Medications: Current Inpatient Medications Medications (Trade) Dose Ordered Sig/Honorio Route Start Time Stop Time Status Last Admin Dose Admin Enoxaparin Sodium (Lovenox Inj) 30 mg DAILY@2000 SC 12/25/16 22:00 01/24/17 21:59 Future Hold 12/26/16 21:11 30 MG Ondansetron HCl (Zofran Inj) 4 mg Q6H PRN IV 12/25/16 20:45 01/24/17 20:44 Bisacodyl (Dulcolax Supp) 10 mg DAILY PRN AK 12/25/16 20:45 01/24/17 20:44 Acetaminophen (Tylenol Tab) 650 mg Q4H PRN PO 12/26/16 13:45 01/25/17 13:44 12/26/16 14:35 650 MG Lisinopril (Zestril Tab) 5 mg QAM PO 12/27/16 09:00 01/26/17 08:59 12/30/16 08:43 5 MG Metoprolol Tartrate 12.5 mg 12.5 mg BID PO 12/26/16 21:00 01/25/17 20:59 12/30/16 08:43 12.5 MG Acetaminophen/ Empty Bag (Ofirmev Iv/ Empty Iv Bag 100ml) 65 ml @ 260 mls/hr Q6H PRN IV 12/27/16 05:15 01/26/17 05:14 12/28/16 06:01 260 MLS/HR Pravastatin Sodium (Pravachol Tab) 40 mg QPM PO 12/27/16 21:00 01/26/17 20:59 12/29/16 20:58 40 MG Ergocalciferol (Vitamin D Cap) 50,000 interunit Fr@0900 PO 12/27/16 09:00 01/26/17 08:59 12/27/16 14:19 50,000 INTERUNIT Cholecalciferol (Vitamin D Tab) 2,000 inter.unit QAM PO 12/28/16 09:00 01/27/17 08:59 12/30/16 08:39 2,000 INTER.UNIT Furosemide (Lasix Tab) 20 mg QAM PO 12/29/16 09:00 01/28/17 08:59 12/30/16 08:42 20 MG Amoxicillin/ Clavulanate Potassium (Augmentin Tab) 875 mg BIDM PO 12/30/16 17:45 01/09/17 17:44 I & O: 24-Hour Column 12/30/16 07:59 Intake Total 1042 ml Output Total 600 ml Balance 442 ml Vital Signs: Date Time Temp Pulse Resp B/P Pulse Ox O2 Delivery O2 Flow Rate FiO2 12/30/16 15:01 36.9 61 16 131/64 97 Nasal Cannula 2.0 12/30/16 08:41 70 135/72 12/30/16 07:20 Nasal Cannula 2.0 12/30/16 06:49 36.8 69 14 151/75 97 Nasal Cannula 2.0 12/29/16 23:25 Nasal Cannula 2.0 12/29/16 23:14 36.8 64 22 127/65 95 Nasal Cannula 2.0 12/29/16 20:54 69 127/63 Laboratory Results: Last 24 Hours Test 12/30/16 05:13 Creatinine 1.10 mg/dl Est Creatinine Clear Calc Drug Dose 53.8 ml/min Estimated GFR () 70.6 Estimated GFR (Non- 60.9
[2016-12-30] MEDS: AMOXICILLIN/CLAVULANATE TAB 875 MG TAB PO SCH (18:25)
[2016-12-30 21:43] VITALS: BP 136/63; PULSE 72
[2016-12-30] MEDS: PRAVASTATIN SOD 40 MG TAB PO SCH (21:44)
[2016-12-30 23:56] VITALS: BP 127/61; PULSE 72; TEMP 37.2; O2SAT 95
[2016-12-31 07:40] VITALS: BP 132/62; PULSE 71; TEMP 37.1; O2SAT 96
[2016-12-31 08:49] VITALS: O2SAT 93
[2016-12-31 09:08] LABS: BASO % 0.1 %; BASO ABS # 0.01 K/uL (0-0.2); COMPLETE YES; EOS % 1.1 %; HEMATOCRIT 28.7 % (42-52); LYMPH % 25.3 %; LYMPH ABS # 2.06 K/uL (1.2-3.4); MEAN CELL VOLUME 89.1 fL (80-100); MEAN CORPUSCULAR HEMOGLOBIN 28.6 pg (25-34); MEAN CORPUSCULAR HGB CONC 32.1 g/dl (32-36); MEAN PLATELET VOLUME 9.1 fL (7.4-10.4); MONO % 5.6 %; NEUT % 67.9 %; PLATELET COUNT 219 K/uL (130-400); RED BLOOD COUNT 3.22 M/uL (4.7-6.1); WHITE BLOOD COUNT 8.15 K/uL (4.8-10.8)
[2016-12-31 09:29] LABS: BUN/CREATININE RATIO 15.4 (10-20); CALCIUM 8.1 mg/dl (8.5-10.1); CREATININE 0.87 mg/dl (0.60-1.40); MAGNESIUM 2.1 mg/dl (1.8-2.4); POTASSIUM 3.4 mmol/L (3.5-5.1)
[2016-12-31] MEDS: AMOXICILLIN/CLAVULANATE TAB 875 MG TAB PO SCH (09:41)
[2016-12-31] MEDS: METOPROLOL TARTRATE 25 MG TAB PO SCH (09:42)
[2016-12-31] MEDS: FUROSEMIDE 20 MG TAB PO SCH (09:42)
[2016-12-31] MEDS: CHOLECALCIFEROL 1000 INTER.UNIT TAB PO SCH (09:42)
[2016-12-31] MEDS: LISINOPRIL 5 MG TAB PO SCH (09:43)
--- NOTE | 2016-12-31 13:00 | Palliative Care Progress Note ---
Palliative Care Progress Note Date of Service December 31, 2016. Subjective Spoke with , Ainsley. Decision was made to not have surgery and go back to [facility] on comfort/hospice care. Per [facility], plan is to go back there skilled for a few days then sign up with hospice. Ainsley has chosen [facility] as her agency. Please contact me with any further palliative care needs.
--- NOTE | 2016-12-31 13:32 | Infectious Disease Progress Nt ---
Progress Note Date of Service December 31, 2016. Subjective Pt evaluation today including: conversation w/ patient, conversation w/ family , physical exam, chart review, lab review, review of studies, conversation w/ portrait consultant, review of inpatient medication list (.) No obvious change overnight, patient appears comfortable, remains afebrile and hemodynamically stable. Surgical repair of hip fracture deferred. Hospice care being arranged. All Other Systems: Reviewed and Negative Medications Type of Current Inpatient Medications Medications (Trade) Dose Ordered Sig/Honorio Route Start Time Stop Time Status Last Admin Dose Admin Enoxaparin Sodium (Lovenox Inj) 30 mg DAILY@2000 SC 12/25/16 22:00 01/24/17 21:59 Future Hold 12/26/16 21:11 30 MG Ondansetron HCl (Zofran Inj) 4 mg Q6H PRN IV 12/25/16 20:45 01/24/17 20:44 Bisacodyl (Dulcolax Supp) 10 mg DAILY PRN VT 12/25/16 20:45 01/24/17 20:44 Acetaminophen (Tylenol Tab) 650 mg Q4H PRN PO 12/26/16 13:45 01/25/17 13:44 12/26/16 14:35 650 MG Lisinopril (Zestril Tab) 5 mg QAM PO 12/27/16 09:00 01/26/17 08:59 12/31/16 09:43 5 MG Metoprolol Tartrate 12.5 mg 12.5 mg BID PO 12/26/16 21:00 01/25/17 20:59 12/31/16 09:42 12.5 MG Acetaminophen/ Empty Bag (Ofirmev Iv/ Empty Iv Bag 100ml) 65 ml @ 260 mls/hr Q6H PRN IV 12/27/16 05:15 01/26/17 05:14 12/28/16 06:01 260 MLS/HR Pravastatin Sodium (Pravachol Tab) 40 mg QPM PO 12/27/16 21:00 01/26/17 20:59 12/30/16 21:44 40 MG Ergocalciferol (Vitamin D Cap) 50,000 interunit Fr@0900 PO 12/27/16 09:00 01/26/17 08:59 12/27/16 14:19 50,000 INTERUNIT Cholecalciferol (Vitamin D Tab) 2,000 inter.unit QAM PO 12/28/16 09:00 01/27/17 08:59 12/31/16 09:42 2,000 INTER.UNIT Furosemide (Lasix Tab) 20 mg QAM PO 12/29/16 09:00 01/28/17 08:59 12/31/16 09:42 20 MG Amoxicillin/ Clavulanate Potassium (Augmentin Tab) 875 mg BIDM PO 12/30/16 17:45 01/09/17 17:44 12/31/16 09:41 875 MG Objective Vital Signs Date Time Temp Pulse Resp B/P Pulse Ox O2 Delivery O2 Flow Rate FiO2 12/31/16 08:49 93 Nasal Cannula 2.0 12/31/16 07:40 37.1 71 20 132/62 96 Nasal Cannula 2.0 12/31/16 07:32 Nasal Cannula 2.0 12/30/16 23:56 37.2 72 18 127/61 95 Nasal Cannula 2.0 12/30/16 23:48 Nasal Cannula 2.0 12/30/16 21:43 72 136/63 12/30/16 16:10 Nasal Cannula 2.0 12/30/16 15:01 36.9 61 16 131/64 97 Nasal Cannula 2.0 Physical Exam General Appearance: WD/WN, no apparent distress Eyes: normal inspection, sclerae normal ENT: normal ENT inspection, pharynx normal Neck: supple, no adenopathy, trachea midline Respiratory/Chest: chest non-tender, lungs clear, normal breath sounds, no respiratory distress Cardiovascular: regular rate, rhythm, no gallop, no murmur Abdomen: normal bowel sounds, non tender, soft, no organomegaly Extremities: no calf tenderness, + pertinent finding (Right hip tenderness) Neurologic/Psychiatric: alert, + disoriented Skin: normal color, warm/dry, no rash Lymphatic: no adenopathy Laboratory Results Last 24 Hours Test 12/31/16 08:55 White Blood Count 8.15 K/uL Red Blood Count 3.22 M/uL Hemoglobin 9.2 g/dL Hematocrit 28.7 % Mean Corpuscular Volume 89.1 fL Mean Corpuscular Hemoglobin 28.6 pg Mean Corpuscular Hemoglobin Concent 32.1 g/dl Platelet Count 219 K/uL Mean Platelet Volume 9.1 fL Neutrophils (%) (Auto) 67.9 % Lymphocytes (%) (Auto) 25.3 % Monocytes (%) (Auto) 5.6 % Eosinophils (%) (Auto) 1.1 % Basophils (%) (Auto) 0.1 % Neutrophils # (Auto) 5.53 K/uL Lymphocytes # (Auto) 2.06 K/uL Monocytes # (Auto) 0.46 K/uL Eosinophils # (Auto) 0.09 K/uL Basophils # (Auto) 0.01 K/uL RDW Standard Deviation 47.2 fL RDW Coefficient of Variation 14.3 % Immature Granulocyte % (Auto) 0.0 % Immature Granulocyte # (Auto) 0.00 K/uL Sodium Level 140 mmol/L Potassium Level 3.4 mmol/L Chloride Level 105 mmol/L Carbon Dioxide Level 26 mmol/L Anion Gap 9.0 mmol/L Blood Urea Nitrogen 13 mg/dl Creatinine 0.87 mg/dl Est Creatinine Clear Calc Drug Dose 68.0 ml/min Estimated GFR () 91.2 Estimated GFR (Non- 78.7 BUN/Creatinine Ratio 15.4 Random Glucose 101 mg/dl Calcium Level 8.1 mg/dl Magnesium Level 2.1 mg/dl Assessment and Plan 86-year-old male with dementia, now with hip fracture, non STEMI, with possible urinary tract infection with culture positive for streptococcal species. Chest x-ray appears more consistent with failure rather than pulmonary infection. Given negative blood cultures, patient now on oral Augmentin therapy, to complete 10 days of therapy for urinary tract infection.
[2016-12-31 13:34] VITALS: BP 128/62; PULSE 72; TEMP 36.6; O2SAT 97
[2016-12-31] MEDS ORDERED: LSN5 PO (13:44)
[2016-12-31] MEDS ORDERED: MRPL10 PO (13:44)
[2016-12-31] MEDS ORDERED: AMOX1TAB43 PO (13:44)
--- NOTE | 2016-12-31 13:50 | Discharge Instructions ---
Discharge Instructions Date of Service December 31, 2016. Admission Reason for Admission: Altered Mental Status, Elevated Troponin Discharge Discharge Diagnosis / Problem: Right subcapital hip fracture Discharge Goals Goal(s): Decrease discomfort Activity Recommendations Activity Level: Bedrest . Additional Information Patient informed of condition: Yes Advance Directives: Yes DNR: Yes Level of Care: Skilled Communicable Disease: No Prognosis: Deteriorating Instructions / Follow-Up Instructions / Follow-Up you have fall with Right subcapital hip fracture you have Fever-likely secondary to UTI or secondary to pneumonia, continue antibiotics for 7 days comfort feeding comfort methods Elevated Troponin- NSTEMI started hospice after [facility] can use positions and wedge pillow to keep him comfort call pcp if have any questions Current Hospital Diet Patient's current hospital diet: AHA Diet (Heart Healthy), Low Sodium Diet (2gm Na) Discharge Diet Recommended Diet: Regular Diet (comfort feeding) Pending Studies Studies pending at discharge: no Physician Orders On Transfer POLST Discussion: with POLST completion Medical Emergencies . Who to Call and When: Medical Emergencies: If at any time you feel your situation is an emergency, please call 911 immediately. . Non-Emergent Contact Non-Emergency issues call your: Primary Care Provider . . "Provider Documentation" section prepared by Kory Gillespie. . Core Measure Problem Core Measures: None
--- NOTE | 2016-12-31 14:20 | Consultant Recommendations ---
Echocardiograph Technician Recommendations Date of Service December 31, 2016. Echocardiograph Technician Recommendations Pt has Subcapital Right Hip Fracture Comfort care measures Ok to do gentle log rolling for bedpan and repositioning No weight on the Right Lower Extremity
[2016-12-31 14:42] VITALS: BP 128/62; PULSE 72; TEMP 36.6; O2SAT 97
[2016-12-31] MEDS ORDERED: POTASSIUM CHLORIDE 20 MEQ TABCR PO ONE (15:15)
[2016-12-31] MEDS ORDERED: NURSING VERBAL MED ORDER ONE (15:15)
--- NOTE | 2016-12-31 17:57 | Discharge Summary ---
Discharge Summary Date of Service December 31, 2016. 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 NOT TO EXCEED 3 GM APAP/24 HOURS Docusate Sodium (Docusate Sodium) 100 Mg Cap 100 MG PO BID, CAP Magnesium Hydroxide (Milk Of Magnesia) 30 Ml Susp 30 ML PO UD PRN for Constipation, ML NEEDED FOR NO BOWEL MOVEMENT FOR 3 DAYS Polyethylene Glycol 3350 (Bulk (Polyethylene Glycol 3350) 1 Pow Pow 17 GM PO DAILY, GM MIX WITH 4-8 OUNCES OF FLUID Prune Juice (Prune Juice ) Liqd 1 DOSE PO UD PRN for Constipation PRUNE JUICE/STEWED PRUNES NEEDED FOR NO BOWEL MOVEMENT FOR 2 DAYS. Sodium Phosphate/Biphosphate (Fleet Enema) Isabella 1 EA NC UD PRN for Constipation, BTL NEEDED FOR NO BOWEL MOVEMENT FOR 4 DAYS [2.0 Calorie Supp] () 60 ML PO QID MED PASS SUPPLEMENT Discontinued Medications: Aspirin (Aspirin Chewable) 81 Mg Chew 81 MG PO DAILY, TAB Bisacodyl (Dulcolax) 10 Mg Sup 1 SUPP NC UD PRN for Constipation, SUP NEEDED FOR NO BOWEL MOVEMENT FOR 3 DAYS Citalopram Hydrobromide (Citalopram Hydrobromide) 10 Mg Tab 10 MG PO QAM, TAB Donepezil Hydrochloride (Aricept) 10 Mg Tab 10 MG PO QPM, TAB Gabapentin (Neurontin) 100 Mg Cap 100 MG PO BID, CAP Dmpgsidr-Lnhdlnhrqqyw-Eurvngir (Artificial Tears) 1 Moises Moises 1 DROP OPB Q6H PRN for Dry Eye(s) Memantine (Namenda) 10 Mg Tab 10 MG PO QPM, TAB Pravastatin Sodium (Pravachol) 40 Mg Tab 40 MG PO QPM, TAB Discharge Exam more awake and alert, pain is better controlled, eating some diet, no acute distress Review of Systems: Constitutional: + problem reported (review of system is limited because patient decreased mental status), No chills, No fatigue, No fever, No sweats, No weakness, No weight loss Eyes: No diplopia, No discharge, No eye pain, No problem reported, No redness, No worsening of vision Respiratory: No cough, No dyspnea at rest, No dyspnea on exertion, No hemoptysis, No problem reported, No shortness of breath, No sputum, No wheezing Cardiovascular: No PND, No chest pain, No claudication, No edema, No orthopnea, No palpitations, No problem reported Physical Exam: General Appearance: no apparent distress, + thin, + pertinent finding ( frail and chronically ill-looking) Eyes: normal inspection, PERRL ENT: normal ENT inspection, hearing grossly normal Neck: supple, no adenopathy Respiratory/Chest: chest non-tender, lungs clear, + decreased breath sounds Cardiovascular: regular rate, rhythm, no edema, no gallop, no JVD Abdomen / GI: normal bowel sounds, non tender, soft, no organomegaly, no pulsatile mass Extremities: + pertinent finding (right leg is shorter and internally rotated) 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 The night prior to repair the patient spiked a temperature and Zosyn was added as well as blood cultures and a chest x ray which was suspicious of a PNA vs possible sepsis and acute on chronic CHF with positive fluid balance, not medical cleared for go under hip surgery. Fever-likely secondary to UTI all secondary to pneumonia -repeat blood cx neg -urine cx alpha strep, ALPHA STREP. NOT ENTEROCOCCUS COLONY COUNT >100,000 CFU/ml -ID following-->d/c vanc and zosyn. Begin Augmentin for a total of 10 days Acute respiratory failure with Hypoxemia: improving CHF, compensated -Continue Lasix 20 mg po daily Elevated Troponin- NSTEMI - troponin has been down trending - Echo- * Left ventricular systolic function is normal. * Grade I diastolic dysfunction, (abnormal relaxation pattern). * There are regional wall motion abnormalities as specified. * There is moderate anterior wall hypokinesis. * Calcified mitral apparatus. * Right ventricular systolic pressure is elevated at 40-50mmHg. - Lisinopril 5 mg and Metoprolol 12.5 mg bid started -Consider also adding an ASA 81 mg daily Right subcapital hip fracture -treating conservatively (family decided hospice), no procedure Metabolic encephalopathy likely secondary to UTI-pt is apparently back to baseline Dementia/depression- DISPO Palliative care saw the patient, the plan was discussed with /Marj Mcdonald PA-C, and palliative care service Discussed the options and pros and cons , family requested conservative management and pain control and hospice care , DNR/DNI per previous discussion. Now is discharge to [facility] and then start hospice care Discussed with patient's again in bedside, continue the care plan, all questions answered Instructions / Follow-Up you have fall with Right subcapital hip fracture you have Fever-likely secondary to UTI or secondary to pneumonia, continue antibiotics for 7 days comfort feeding comfort methods Elevated Troponin- NSTEMI started hospice after [place] can use positions and wedge pillow to keep him comfort call pcp if have any questions Total Time Spent: Less than 30 minutes This includes examination of the patient, discharge planning, medication reconciliation, and communication with other providers. Discharge Instructions Please refer to the electronic Patient Visit Report (Discharge Instructions) for additional information. Additional Copies To [facility]
== END 2016-12-31 16:20 | disposition hospice, inpatient (51) | DRG 871 ==
LOC: ENRESERVDT → ENRESERVTM → EDBD 15:33 → C.EDC 15:35 → C.2E 20:32 → EDBEDREQSVC 12-29 08:54 → C.MSN 12-29 10:44
PROVIDERS: ADMIT Hospitalist; ATTEND Hospitalist
DX: A40.0 Sepsis due to streptococcus, group A (principal); I21.4 Non-ST elevation (NSTEMI) myocardial infarction; S72.011A Unspecified intracapsular fracture of right femur, initial encounter for closed fracture; J18.9 Pneumonia, unspecified organism; N39.0 Urinary tract infection, site not specified; G93.41 Metabolic encephalopathy; J96.01 Acute respiratory failure with hypoxia; G30.9 Alzheimer's disease, unspecified; Z51.5 Encounter for palliative care; F02.80 Dementia in other diseases classified elsewhere, unspecified severity, without behavioral disturbance, psychotic disturbance, mood disturbance, and anxiety; I65.29 Occlusion and stenosis of unspecified carotid artery; R65.20 Severe sepsis without septic shock; E78.5 Hyperlipidemia, unspecified; Z86.73 Personal history of transient ischemic attack (TIA), and cerebral infarction without residual deficits; Z79.82 Long term (current) use of aspirin; E86.0 Dehydration; Z66 Do not resuscitate; I50.9 Heart failure, unspecified; F01.50 Vascular dementia, unspecified severity, without behavioral disturbance, psychotic disturbance, mood disturbance, and anxiety; Y92.129 Unspecified place in nursing home as the place of occurrence of the external cause; W19.XXXA Unspecified fall, initial encounter